=== PATIENT | female | born 1960 | race Caucasian/White ===

== ENCOUNTER 2019-10-28 12:35 | Outpatient (CLI) | payer MEDICARE, MEDICAID, SELFPAY ==
[2019-10-28 13:59] LABS: Vitamin D 25 Hydroxy 30.8 ng/mL
== END 2019-10-28 12:36 | disposition home or self-care (01) ==
LOC: ANHLAB 12:40
PROVIDERS: Visit Provider Nurse Practitioner Family
DX: E55.9 Vitamin D deficiency, unspecified (principal)
CPT/HCPCS: 36415; 82306

== ENCOUNTER 2019-10-31 09:10 | Outpatient (CLI) | payer MEDICARE, MEDICAID, SELFPAY ==
--- NOTE | 2019-11-07 02:25 | SLEEP_ITS ---
Split-Night Study. DATE OF STUDY: 10/31/2019 ORDERING PHYSICIAN: Keagan Richards M.D. REASON FOR THE STUDY: Sleep apnea, unspecified. HISTORY: The patient is a 59-year-old female, 64 inches tall, weighing 230 pounds with a body mass index of 39.5. There is a history of obstructive sleep apnea syndrome on CPAP in 2017. Currently, the patient has constant snoring that is loud enough that others complain about it. She frequently has trouble sleeping with a cold. She does not gasp for breath at night. She occasionally has problems breathing at night, witnessed by others. She occasionally sweats excessively at night, rarely notices her heart pounding or beating irregularly at night. She constantly falls asleep during the day, rarely involuntarily, rarely while driving. She does not have loss of muscle tone with strong emotion. She denies daytime difficulties at work due to sleepiness. She does not feel paralyzed on waking or falling asleep and does not have vivid dreamlike scenes upon awakening or falling asleep. She is never afraid to go to sleep. She constantly has nightmares. She occasionally remembers her dreams, occasionally has racing thoughts, occasionally feels sad, depressed, and anxious. She does not have muscular tension. She frequently notices parts of her body jerking and she frequently kicks at night. She rarely has crawly achy feelings in her legs. She denies leg pain at night. There is no morning jaw pain and she does not grind her teeth at night. She occasionally is bothered by pain during the day and occasionally has awakened with pain at night. She frequently wakes up feeling stiff in the morning. She does not have sore or achy muscles and does not wake with neck or spine pain. She has fatigue, nightmares, and headaches. Bedtime is between 10 and 11 p.m., falling asleep quickly, waking a few times at night. On some of these occasions, she will immediately fall asleep again and at other times she will stay awake for a few hours. She estimates about 5 hours of sleep nightly. The schedule was the same on the weekends. She does not indicate what time she awakens for the day. She does take naps. A short nap is not refreshing. She is usually drowsy in the morning for 2 hours or longer. MEDICAL COMORBIDITIES: Diabetes mellitus type 2, major depression, obstructive sleep apnea syndrome, polyarthritis. MEDICATIONS: 1. Atorvastatin 20 mg a day. 2. Effexor XR 150 mg daily. 3. NovoLog FlexPen sliding scale 3 times a day per protocol. 4. Jardiance 25 mg daily. 5. Vitamin D2 50,000 units weekly. 6. Basaglar 30 units subcutaneously in the morning, 55 units in the evening. 7. Metformin 1000 mg twice a day with meals. 8. Hydrochlorothiazide 25 mg a day. HABITS: The patient uses e-cigarettes. Caffeine is used. There is no alcohol. No recreational drugs. DESCRIPTION OF THE STUDY: On the [employer] [place] Sleepiness Scale, the score is 4. This was conducted as a split-night nocturnal polysomnogram using the MyMosa multiple channel system including EOG, EEG, submental EMG, EKG, nasal and oral airflow using thermistors, nasal pressure sensors, chest and abdominal belts, body position data and pulse oximetry. The study was scored using CMS guidelines. During the baseline portion 222.7 minutes of recording time occurred. 124.7 minutes of sleep occurred. Sleep efficiency was 55.9%. Sleep latency was 10 minutes. There was no REM. The patient had 46 awakenings and spent 88.2% of this portion awake after sleep onset. The patient's sleep architecture showed 43.8% stage I sleep, 56.2% stage II sleep. No stage III and no stage REM. The patient spent 2.4% of this portion supine. The sleep was extremely fragmented with constant shifts between wake stage I
== END 2019-10-31 09:11 | disposition home or self-care (01) ==
LOC: ANHCSM 09:10
PROVIDERS: Visit Provider Family Medicine
DX: G47.30 Sleep apnea, unspecified (principal)
CPT/HCPCS: 95811

== ENCOUNTER 2020-03-19 10:01 | Outpatient (CLI) | payer MEDICARE, MEDICAID, SELFPAY ==
[2020-03-19 11:19] LABS: Vitamin D 25 Hydroxy 37.9 ng/mL
== END 2020-03-19 10:02 | disposition home or self-care (01) ==
PROVIDERS: PCP Family Medicine; Visit Provider Nurse Practitioner
DX: E55.9 Vitamin D deficiency, unspecified (principal)
CPT/HCPCS: 36415; 82306

== ENCOUNTER 2020-05-12 08:51 | Outpatient (CLI) | payer MEDICARE, MEDICAID, SELFPAY ==
[2020-05-12 10:18] LABS: Alanine Aminotransferase 36 U/L (4-35); Albumin Level 4.3 g/dL (3.5-5.1); Alkaline Phosphatase 70 U/L (38-126); Anion Gap 9 mmol/L (8-16); Aspartate Amino Transferase 25 U/L (14-36); Bilirubin,Total 0.3 mg/dL (0.2-1.3); Blood Urea Nitrogen 14 mg/dL (7-17); Calcium 8.9 mg/dL (8.4-10.2); Carbon Dioxide 27 mmol/L (22-30); Chloride 101 mmol/L (98-107); Cholesterol 129 mg/dL (0-200); Estimated Glomerular Filt Rate > 60; Glucose 138 mg/dL (65-105); HDL Direct 37 mg/dL; Potassium 3.7 mmol/L (3.4-5.0); Sodium 137 mmol/L (137-145); Triglycerides 174 mg/dL (<150)
[2020-05-12 10:22] LABS: Hemoglobin A1C 7.3 % (<5.7)
[2020-05-12 10:30] LABS: LDL Cholesterol Direct 68 mg/dL
[2020-05-12 10:49] LABS: Thyroid Stimulating Hormone 0.543 uIU/mL (0.465-4.680)
[2020-05-12 11:20] LABS: Free T4 Free Thyroxine 0.87 ng/mL (0.78-2.19)
[2020-05-12 11:22] LABS: Creatinine Urine 105.7 mg/dL
[2020-05-12 11:24] LABS: Folic Acid 8.4 ng/mL (2.76->20)
[2020-05-12 12:19] LABS: MALB Creatinine Ratio 12.6 mg/g (0-30); Microalbumin Urine Random 13.3 mg/L (0-16.7)
[2020-05-15 12:17] LABS: Triiodothyronine T3 Free 3.1 pg/mL (2.3-4.2)
[2020-05-17 07:01] LABS: Thyroid Peroxidase Antibodies <1 IU/mL (<9)
== END 2020-05-12 08:52 | disposition home or self-care (01) ==
PROVIDERS: PCP Family Medicine; Visit Provider Internal Medicine Endocrinology, Diabetes & Metabolism
DX: E11.65 Type 2 diabetes mellitus with hyperglycemia (principal); R53.83 Other fatigue; E78.5 Hyperlipidemia, unspecified
CPT/HCPCS: 36415; 80053; 80061; 82043; 82607; 82746; 83036; 84439; 84443; 84481; 86376

== ENCOUNTER 2020-07-20 07:38 | Outpatient (CLI) | payer MEDICARE, MEDICAID, SELFPAY ==
--- NOTE | ~2020-07-20 | XR_ITS ---
EXAMINATION: XR shoulder LT min 2V DATE: 07/20/2020 08:22 INDICATION: Left shoulder pain TECHNIQUE: AP internally and externally rotated, AP oblique externally rotated and axillary views of the left shoulder were obtained. COMPARISON: None FINDINGS: Normal alignment. No fracture.Mild glenohumeral and moderate acromioclavicular osteoarthritis. Soft tissues are unremarkable. Visualized portions of the left lung are clear. IMPRESSION: Mild left glenohumeral and moderate acromioclavicular osteoarthritis. Reviewed, dictated and finalized at location A.
[2020-07-20 08:44] LABS: Alanine Aminotransferase 41 U/L (4-35); Albumin Level 4.5 g/dL (3.5-5.1); Alkaline Phosphatase 69 U/L (38-126); Anion Gap 9 mmol/L (8-16); Aspartate Amino Transferase 26 U/L (14-36); Bilirubin,Total 0.4 mg/dL (0.2-1.3); Blood Urea Nitrogen 14 mg/dL (7-17); Calcium 9.6 mg/dL (8.4-10.2); Carbon Dioxide 27 mmol/L (22-30); Chloride 103 mmol/L (98-107); Cholesterol 141 mg/dL (0-200); Estimated Glomerular Filt Rate > 60; Glucose 117 mg/dL (65-105); HDL Direct 45 mg/dL; Potassium 4.3 mmol/L (3.4-5.0); Sodium 139 mmol/L (137-145); Triglycerides 104 mg/dL (<150)
[2020-07-20 08:55] LABS: LDL Cholesterol Direct 80 mg/dL
[2020-07-20 08:57] LABS: Hemoglobin A1C 7.4 % (<5.7)
[2020-07-20 09:02] LABS: Creatinine Urine 96.9 mg/dL
[2020-07-20 09:09] LABS: MALB Creatinine Ratio 14.9 mg/g (0-30); Microalbumin Urine Random 14.4 mg/L (0-16.7)
[2020-07-20 09:15] LABS: Cortisol Random 1.14 ug/dL
[2020-07-20 09:20] LABS: Free T4 Free Thyroxine 0.83 ng/mL (0.78-2.19)
[2020-07-23 04:49] LABS: Thyroid Peroxidase Antibodies <1 IU/mL (<9)
== END 2020-07-20 07:39 | disposition home or self-care (01) ==
PROVIDERS: PCP Family Medicine; Referring Provider Nurse Practitioner; Visit Provider Internal Medicine Endocrinology, Diabetes & Metabolism
DX: E11.9 Type 2 diabetes mellitus without complications (principal); E78.5 Hyperlipidemia, unspecified; R63.5 Abnormal weight gain; M25.512 Pain in left shoulder
CPT/HCPCS: 36415; 73030; 80053; 80061; 82043; 82533; 83036; 84439; 84443; 84481; 86376

== ENCOUNTER 2020-09-10 09:00 | Outpatient (RCR) | payer MEDICARE, MEDICAID, SELFPAY ==
[2020-06-19 10:57] VITALS: BMI 40.7
== END 2020-09-10 13:53 | disposition home or self-care (01) ==
LOC: ANHDMC 09:00
PROVIDERS: PCP Family Medicine; Visit Provider Family Medicine
DX: E11.65 Type 2 diabetes mellitus with hyperglycemia (principal); Z71.3 Dietary counseling and surveillance; Z71.89 Other specified counseling
CPT/HCPCS: 97802; G0108

== ENCOUNTER 2020-10-22 08:27 | Outpatient (CLI) | payer MEDICARE, MEDICAID, SELFPAY ==
[2020-10-22 09:18] LABS: Alanine Aminotransferase 26 U/L (4-35); Albumin Level 4.3 g/dL (3.5-5.1); Alkaline Phosphatase 68 U/L (38-126); Anion Gap 5 mmol/L (8-16); Aspartate Amino Transferase 23 U/L (14-36); Bilirubin,Total 0.4 mg/dL (0.2-1.3); Blood Urea Nitrogen 19 mg/dL (7-17); Calcium 9.3 mg/dL (8.4-10.2); Carbon Dioxide 30 mmol/L (22-30); Chloride 101 mmol/L (98-107); Estimated Glomerular Filt Rate > 60; Glucose 113 mg/dL (65-105); Potassium 3.8 mmol/L (3.4-5.0); Sodium 136 mmol/L (137-145)
[2020-10-22 09:31] LABS: Creatinine Urine 117.7 mg/dL
[2020-10-22 09:35] LABS: MALB Creatinine Ratio 8.2 mg/g (0-30); Microalbumin Urine Random 9.6 mg/L (0-16.7)
[2020-10-22 09:46] LABS: Free T4 Free Thyroxine 0.84 ng/mL (0.78-2.19)
[2020-10-22 10:25] LABS: Folic Acid 8.2 ng/mL (2.76->20)
[2020-10-24 10:48] LABS: Triiodothyronine T3 Free 2.9 pg/mL (2.3-4.2)
[2020-10-25 05:56] LABS: Thyroid Peroxidase Antibodies <1 IU/mL (<9)
== END 2020-10-22 08:28 | disposition home or self-care (01) ==
PROVIDERS: PCP Family Medicine; Visit Provider Internal Medicine Endocrinology, Diabetes & Metabolism
DX: E11.9 Type 2 diabetes mellitus without complications (principal)
CPT/HCPCS: 36415; 80053; 82043; 82607; 82746; 83036; 84439; 84443; 84481; 86376

== ENCOUNTER 2020-10-23 08:10 | Outpatient (RCR) | payer MEDICAID, SELFPAY | END 2020-10-23 23:59 | disposition home or self-care (01) | LOC: ANHAUDIO 08:10 | PROVIDERS: PCP Family Medicine; Visit Provider Family Medicine | DX: Z46.1 Encounter for fitting and adjustment of hearing aid (principal) | CPT/HCPCS: 99199 ==

== ENCOUNTER 2020-10-23 13:00 | Outpatient (RCR) | payer MEDICARE, MEDICAID, SELFPAY | END 2020-10-23 14:29 | disposition home or self-care (01) | LOC: ANHDMC 13:00 | PROVIDERS: PCP Family Medicine; Visit Provider Family Medicine | DX: E11.65 Type 2 diabetes mellitus with hyperglycemia (principal); Z71.89 Other specified counseling | CPT/HCPCS: G0108 ==

== ENCOUNTER 2021-01-17 11:15 | Outpatient (RCR) | payer MEDICARE, SELFPAY ==
[2020-11-27 12:38] VITALS: BMI 40.6
== END 2021-01-17 12:44 | disposition home or self-care (01) ==
LOC: ANHDMC 11:15
PROVIDERS: PCP Family Medicine; Visit Provider Family Medicine
DX: E11.65 Type 2 diabetes mellitus with hyperglycemia (principal); Z71.3 Dietary counseling and surveillance; Z71.89 Other specified counseling
CPT/HCPCS: 97803; G0108

== ENCOUNTER 2021-02-26 08:32 | Outpatient (CLI) | payer MEDICARE, SELFPAY ==
[2021-02-26 09:11] LABS: Basophils Percent Auto 0.3 % (0.2-1.2); Eosinophils Percent Auto 0.5 % (0-4.4); Hematocrit 44.5 % (37.0-47.0); Hemoglobin 14.7 g/dL (12.0-15.0); Immature Granulocyte Absolute 0.01 K/mm3 (0.00-0.031); Immature Granulocyte Percent A 0.2 % (0-0.5); Lymphocytes Absolute Auto 1.41 K/mm3 (0.9-3.2); Mean Corpuscular Hemoglobin 31.7 pg (26-34); Mean Corpuscular Volume 95.9 fl (80-100); Mean Platelet Volume 9.7 fl (7.4-10.4); Monocytes Absolute Auto 0.7 K/mm3 (0.1-0.6); Monocytes Percent Auto 10.7 % (2.6-8.5); Neutrophils Absolute Auto 4.3 K/mm3 (1.3-6.7); Neutrophils Percent Auto 66.3 % (45.5-73.1); Platelet Count Result 246 k/mm3 (150-375); Red Blood Count 4.64 M/mm3 (4.2-5.4); Red Cell Distribution Width 14.6 % (11.5-14.5); White Blood Count 6.4 K/mm3 (4.5-10.0)
[2021-02-26 09:25] LABS: Alanine Aminotransferase 23 U/L (4-35); Albumin Level 4.6 g/dL (3.5-5.1); Alkaline Phosphatase 72 U/L (38-126); Anion Gap 11 mmol/L (8-16); Aspartate Amino Transferase 29 U/L (14-36); Bilirubin,Total 0.4 mg/dL (0.2-1.3); Blood Urea Nitrogen 17 mg/dL (7-17); Calcium 9.7 mg/dL (8.4-10.2); Carbon Dioxide 29 mmol/L (22-30); Chloride 101 mmol/L (98-107); Cholesterol 161 mg/dL (0-200); Estimated Glomerular Filt Rate > 60; Glucose 100 mg/dL (65-105); HDL Direct 48 mg/dL; Potassium 3.9 mmol/L (3.4-5.0); Sodium 141 mmol/L (137-145); Triglycerides 155 mg/dL (<150)
[2021-02-26 09:27] LABS: Hemoglobin A1C 7.2 % (<5.7)
[2021-02-26 09:37] LABS: LDL Cholesterol Direct 70 mg/dL
[2021-02-26 09:51] LABS: Creatinine Urine 144.6 mg/dL
[2021-02-26 09:55] LABS: Microalbumin Urine Random 11.5 mg/L (0-16.7)
[2021-02-26 09:57] LABS: Total Triiodothyronine (T3) 1.23 NG/ML (0.97-1.69)
[2021-02-26 10:07] LABS: Free T4 Free Thyroxine 0.89 ng/mL (0.78-2.19)
== END 2021-02-26 08:33 | disposition home or self-care (01) ==
PROVIDERS: PCP Family Medicine; Referring Provider Internal Medicine Endocrinology, Diabetes & Metabolism; Visit Provider Nurse Practitioner
DX: E11.9 Type 2 diabetes mellitus without complications (principal); E78.5 Hyperlipidemia, unspecified; Z00.00 Encounter for general adult medical examination without abnormal findings; R60.9 Edema, unspecified; F33.1 Major depressive disorder, recurrent, moderate; G47.00 Insomnia, unspecified; E55.9 Vitamin D deficiency, unspecified
CPT/HCPCS: 36415; 80053; 80061; 82043; 82306; 83036; 84439; 84443; 84480; 85025

== ENCOUNTER 2021-03-27 08:30 | Outpatient (RCR) | payer MEDICARE, MEDICAID, SELFPAY ==
--- NOTE | 2021-02-22 13:34 | PTOPEVAL ---
PHYSICAL THERAPY EVALUATION Thank you for referring Ten Preciado to [facility].? Ten was evaluated for the dx of left shoulder pain/OA. The patient is scheduled to be seen for therapy? 2 x/week for 4 weeks. Please review, sign, date and return this plan of care BLUE. I agree with and certify that the following plan of care is medically necessary. Referring Physician Date Attending Provider: Keagan Richards MD *PT Outpatient Evaluation Start: 02/22/21 12:31 Freq: Status: Active Protocol: Document 02/22/21 12:31 MLV (Rec: 02/22/21 13:21 [facility] [id number]) Therapy Assessment Status Assessment Status Evaluation Evaluation Information Problem Diagnosis right shoulder pain/OA Onset 2 months ago. Cause none Additional Evaluation Detail Patient reports having shoulder pain about 2 months ago, especially with reaching. The pt denies injury and no prior issues with her shoulder. The patient has no issues with the other shoulder or her neck. The patient modifies use of left arm to complete ADL's, housework. The patient goes to the gym regularly, using weights and has had to stop certain exercises due to shoulder pain. The patient also is having trouble sleeping due to shoulder pain. The patient does not work outside of her home. Diagnostic Tests X-Rays For This Problem Yes: right shoulder OA Pain Assessment Timing of Pain Assessment Timing of Pain Assessment Assessment Pain Scale Pain Scale Used Numeric (1 - 10) Self Report Pain Assessment Left Shoulder(s) Reported Pain Level 7 Pain Description Aching,Burning Radicular Pain Location down to hand Pain Frequency Acute Greatest Pain Intensity 10 Pain Aggravating Factors Exercise/Activity,Lifting, Prolonged Position Pain Score Pain Score 7: Self Report Interventions Used Interventions Used By Clinicians Education,Electrical Stimulation,Heat Pain Relief Interventions Used By Inactivity/Rest,Position Patient Change Upper Extremity Range of Motion General Upper Extremity Range of Motion Gross Upper Extremity Range of Motion shoulder active motion: right Comments
--- NOTE | 2021-03-11 08:12 | PCPTNOTE ---
Patient called & cancelled scheduled appointment this date due to illness.
--- NOTE | 2021-03-20 13:18 | PCPTNOTE ---
Patient cancelled scheduled appointment this date due to having the wrong appt time-showed 3 hours early and cannot readjust her transportation to return at correct time. No other appts available at time pt was present.
--- NOTE | 2021-03-27 09:14 | PTOPEVAL ---
PHYSICAL THERAPY DISCHARGE Thank you for referring Ten Preciado to [facility].? Ten has completed 4 visits for the dx of left shoulder impingement/pain. Goals have not been met-skilled PT peaked due to limited compliance. DC PT. Please review, sign, date and return this plan of care BLUE. I agree with and certify that the following plan of care is medically necessary. Referring Physician Date Attending Provider: Keagan Richards MD *PT Outpatient Discharge Start: 02/22/21 12:31 Freq: Status: Active Protocol: Document 03/27/21 08:26 MLV (Rec: 03/27/21 09:03 MLV [id number]) Therapy Assessment Status Assessment Status Assessment Status Discharge Evaluation Information Problem Diagnosis right shoulder pain/OA Onset 2 months ago. Cause none Additional Evaluation Detail The patient reports shoulder pain being a little better. Patient can't describe how its better, just that its better. The patient denies pain or difficulty with the HEP. The patient hasn't done the cane exercises-states she didn't have a stick. Pain Assessment Timing of Pain Assessment Timing of Pain Assessment Assessment Pain Scale Pain Scale Used Numeric (1 - 10) Self Report Pain Assessment Left Shoulder(s) Reported Pain Level 5 Pain Description Aching,Burning Pain Frequency Acute Pain Aggravating Factors Exercise/Activity,Lifting, Prolonged Position Pain Score Pain Score 5: Self Report Interventions Used Interventions Used By Clinicians Electrical Stimulation, Exercise,Heat,Manual Therapy Techniques Pain Relief Interventions Used By Heat Patient Other Alleviating Interventions ibuprofen Upper Extremity Range of Motion General Upper Extremity Range of Motion Gross Upper Extremity Range of Motion shoulder active motion: Comments left shoulder flexion 115', abduction 89', extension 63', ER 43', IR 78'; abduction passive 125' with empty endfeel (stopped due to pt complaint). Upper Extremity Muscle Strength Testing General Upper Extremity Strength Gross Upper Extremity Strength Comments no change in strength Palpation Assessment Palpation Palpation 25% decrease in moderate tightness left subscapularis
== END 2021-04-12 09:17 | disposition home or self-care (01) ==
LOC: ANHPT 08:30
PROVIDERS: PCP Family Medicine; Visit Provider Family Medicine
DX: M13.812 Other specified arthritis, left shoulder (principal)
CPT/HCPCS: 97014; 97110; 97140; 97162; G0283

== ENCOUNTER 2021-07-11 08:23 | Outpatient (CLI) | payer MEDICARE, MEDICAID, SELFPAY ==
[2021-07-11 09:01] LABS: Creatinine Urine 135.24 mg/dL (40-278); Hemoglobin A1C 7.7 % (<5.7); MALB Creatinine Ratio 9.6 mg/g (0-30); Microalbumin Urine Random < 13.0 mg/L
[2021-07-11 09:29] LABS: Alanine Aminotransferase 35 U/L (14-59); Albumin Level 3.7 g/dL (3.4-5.0); Alkaline Phosphatase 79 U/L (46-116); Anion Gap 8 mmol/L (8-16); Aspartate Amino Transferase 16 U/L (15-37); Bilirubin,Total 0.4 mg/dL (0.00-1.00); Blood Urea Nitrogen 13 mg/dL (7-18); Calcium 8.9 mg/dL (8.5-10.1); Carbon Dioxide 29 mmol/L (21-32); Chloride 104 mmol/L (98-108); Cholesterol 144 mg/dL (0-200); Estimated Glomerular Filt Rate > 60; Free T4 Free Thyroxine 0.85 ng/dL (0.76-1.46); Glucose 110 mg/dL (70-99); HDL Direct 42 mg/dL (40-60); LDL Cholesterol Calculated 76 mg/dL (<130); Osmolality Calculated 293 mOsm/kg (285-295); Potassium 4.2 mmol/L (3.5-5.1); Sodium 141 mmol/L (136-145); Thyroid Stimulating Hormone 0.64 uIU/mL (0.36-3.74); Total Protein 6.6 g/dL (6.4-8.2); Triglycerides 132 mg/dL (0-150)
[2021-07-14 20:07] LABS: Vitamin D 25 Hydroxy 32 ng/mL (30-100)
== END 2021-07-11 08:24 | disposition home or self-care (01) ==
LOC: CHSLAB 08:29
PROVIDERS: PCP Family Medicine; Visit Provider Internal Medicine Endocrinology, Diabetes & Metabolism
DX: E55.9 Vitamin D deficiency, unspecified (principal); Z00.00 Encounter for general adult medical examination without abnormal findings; E11.9 Type 2 diabetes mellitus without complications; E78.5 Hyperlipidemia, unspecified
CPT/HCPCS: 36415; 80053; 80061; 82043; 82306; 83036; 84439; 84443

== ENCOUNTER 2021-10-17 08:25 | Outpatient (CLI) | payer MEDICARE, MEDICAID, SELFPAY ==
[2021-10-17 09:10] LABS: Hemoglobin A1C 8.2 % (<5.7)
[2021-10-17 09:26] LABS: Alanine Aminotransferase 32 U/L (14-59); Albumin Level 3.9 g/dL (3.4-5.0); Alkaline Phosphatase 70 U/L (46-116); Anion Gap 9 mmol/L (8-16); Aspartate Amino Transferase 12 U/L (15-37); Bilirubin,Total 0.3 mg/dL (0.00-1.00); Blood Urea Nitrogen 16 mg/dL (7-18); Calcium 9.1 mg/dL (8.5-10.1); Carbon Dioxide 28 mmol/L (21-32); Chloride 101 mmol/L (98-108); Cholesterol 160 mg/dL (0-200); Estimated Glomerular Filt Rate > 60; Free T3 2.12 pg/mL (2.18-3.98); Free T4 Free Thyroxine 0.96 ng/dL (0.76-1.46); Glucose 126 mg/dL (70-99); HDL Direct 44 mg/dL (40-60); LDL Cholesterol Calculated 88 mg/dL (<130); Osmolality Calculated 289 mOsm/kg (285-295); Potassium 4.2 mmol/L (3.5-5.1); Sodium 138 mmol/L (136-145); Total Protein 6.9 g/dL (6.4-8.2); Triglycerides 139 mg/dL (0-150)
[2021-10-20 03:05] LABS: Thyroid Peroxidase Antibodies <1 IU/mL (<9)
[2021-10-20 06:39] LABS: Vitamin D 25 Hydroxy 49 ng/mL (30-100)
== END 2021-10-17 08:26 | disposition home or self-care (01) ==
LOC: CHSLAB 08:29
PROVIDERS: PCP Nurse Practitioner Family; Visit Provider Internal Medicine Endocrinology, Diabetes & Metabolism
DX: E11.65 Type 2 diabetes mellitus with hyperglycemia (principal); R94.6 Abnormal results of thyroid function studies; E78.5 Hyperlipidemia, unspecified; E55.9 Vitamin D deficiency, unspecified
CPT/HCPCS: 36415; 80053; 80061; 82306; 83036; 84439; 84443; 84481; 86376

== ENCOUNTER 2021-12-23 08:29 | Outpatient (CLI) | payer MEDICARE, MEDICAID, SELFPAY ==
--- NOTE | ~2021-12-23 | MM_ITS ---
EXAMINATION: MM screening cameron BI w peggy HISTORY: Screening mammogram TECHNIQUE: Craniocaudal and mediolateral oblique 3-D tomosynthesis images were obtained and synthetic 2-D images were generated. CAD analysis was submitted and interpreted. COMPARISON: No prior mammogram is available for comparison at this institution. BREAST PARENCHYMAL COMPOSITION: There are scattered areas of fibroglandular density. FINDINGS: There are possible the outer breasts as well as in the middle third of the lower left breast. No susp icious calcification is identified. IMPRESSION: 1. Possible breast masses which may represent the patient's baseline however no comparison is current ly available. 2. Comparison with prior mammograms is necessary. BI-RADS Category 0: Incomplete: Needs comparison with prior mammograms. Reviewed, dictated and finalized at location A. IMPRESSION: 1. Possible breast masses which may represent the patient's baseline however no comparison is currently available. 2. Comparison with prior mammograms is necessary. BI-RADS Category 0: Incomplete: Needs comparison with prior mammograms.
== END 2021-12-23 08:30 | disposition home or self-care (01) ==
LOC: CHSIMG 08:31
PROVIDERS: PCP Nurse Practitioner Family; Visit Provider Nurse Practitioner Family
DX: Z12.31 Encounter for screening mammogram for malignant neoplasm of breast (principal)
CPT/HCPCS: 77063; 77067

== ENCOUNTER 2022-02-05 08:17 | Outpatient (CLI) | payer MEDICARE, MEDICAID, SELFPAY ==
[2022-02-05 09:07] LABS: Creatinine Urine 120.79 mg/dL (40-278); MALB Creatinine Ratio 10.7 mg/g (0-30); Microalbumin Urine Random < 13.0 mg/L
[2022-02-05 09:08] LABS: Hemoglobin A1C 7.1 % (<5.7)
[2022-02-05 09:25] LABS: Alanine Aminotransferase 31 U/L (14-59); Albumin Level 3.6 g/dL (3.4-5.0); Alkaline Phosphatase 73 U/L (46-116); Anion Gap 7 mmol/L (8-16); Aspartate Amino Transferase 13 U/L (15-37); Bilirubin,Total 0.3 mg/dL (0.00-1.00); Blood Urea Nitrogen 17 mg/dL (7-18); Calcium 8.7 mg/dL (8.5-10.1); Carbon Dioxide 28 mmol/L (21-32); Chloride 103 mmol/L (98-108); Cholesterol 126 mg/dL (0-200); Estimated Glomerular Filt Rate > 60; Free T3 2.85 pg/mL (2.18-3.98); Free T4 Free Thyroxine 0.95 ng/dL (0.76-1.46); Glucose 96 mg/dL (70-99); HDL Direct 45 mg/dL (40-60); LDL Cholesterol Calculated 59 mg/dL (<130); Osmolality Calculated 287 mOsm/kg (285-295); Potassium 3.9 mmol/L (3.5-5.1); Sodium 138 mmol/L (136-145); Thyroid Stimulating Hormone 0.35 uIU/mL (0.36-3.74); Triglycerides 108 mg/dL (0-150)
[2022-02-07 14:01] LABS: Vitamin D 25 Hydroxy 67 ng/mL (30-100)
[2022-02-12 13:55] LABS: Hepatitis C RNA, Quant PCR <15 IU/mL
== END 2022-02-05 08:18 | disposition home or self-care (01) ==
LOC: CHSLAB 08:21
PROVIDERS: PCP Nurse Practitioner Family; Visit Provider Internal Medicine Endocrinology, Diabetes & Metabolism
DX: R76.8 Other specified abnormal immunological findings in serum (principal); E55.9 Vitamin D deficiency, unspecified; E03.9 Hypothyroidism, unspecified; E11.65 Type 2 diabetes mellitus with hyperglycemia
CPT/HCPCS: 36415; 80053; 80061; 82043; 82306; 83036; 84439; 84443; 84481; 87522

== ENCOUNTER 2022-06-16 08:13 | Outpatient (CLI) | payer MEDICARE, MEDICAID, SELFPAY ==
[2022-06-16 08:45] LABS: Hemoglobin A1C 7.2 % (<5.7)
[2022-06-16 09:29] LABS: Alanine Aminotransferase 27 U/L (14-59); Alkaline Phosphatase 72 U/L (46-116); Anion Gap 7 mmol/L (8-16); Aspartate Amino Transferase 15 U/L (15-37); Bilirubin,Total 0.3 mg/dL (0.00-1.00); Blood Urea Nitrogen 13 mg/dL (7-18); Carbon Dioxide 29 mmol/L (21-32); Chloride 102 mmol/L (98-108); Cholesterol 130 mg/dL (0-200); Estimated Glomerular Filt Rate > 60; Free T4 Free Thyroxine 0.96 ng/dL (0.76-1.46); Glucose 105 mg/dL (70-99); HDL Direct 46 mg/dL (40-60); LDL Cholesterol Calculated 61 mg/dL (<130); Osmolality Calculated 286 mOsm/kg (285-295); Potassium 3.8 mmol/L (3.5-5.1); Sodium 138 mmol/L (136-145); Total Protein 6.6 g/dL (6.4-8.2); Triglycerides 114 mg/dL (0-150)
[2022-06-16 09:55] LABS: Free T3 2.65 pg/mL (2.18-3.98)
[2022-06-18 09:05] LABS: MALB Creatinine Ratio 6.7 mg/g (0-30)
== END 2022-06-16 08:14 | disposition home or self-care (01) ==
LOC: CHSLAB 08:17
PROVIDERS: PCP Nurse Practitioner Family; Visit Provider Internal Medicine Endocrinology, Diabetes & Metabolism
DX: E03.9 Hypothyroidism, unspecified (principal); E11.9 Type 2 diabetes mellitus without complications; E78.5 Hyperlipidemia, unspecified
CPT/HCPCS: 36415; 80053; 80061; 82043; 83036; 84439; 84443; 84481

== ENCOUNTER 2022-06-30 09:07 | Outpatient (CLI) | payer MEDICARE, MEDICAID, SELFPAY ==
--- NOTE | ~2022-06-30 | CT_ITS ---
EXAMINATION: CT lung screening DATE: 06/30/2022 09:30 INDICATION: History of tobacco dependence. History of asthma and sleep apnea. TECHNIQUE: Computed tomography (CT) of the chest was performed without intravenous contrast. The dose -length product was 283.97 mGy-cm. Automated exposure control and iterative reconstruction technique were employed. COMPARISON: None FINDINGS: There is atherosclerosis of the aorta and coronary arteries. Heart size is normal. Small hi atal hernia. There is a large hypodense mass measuring 12.8 cm in the liver, incompletely visualized. No thoracic lymphadenopathy. No significant pleural or pericardial effusion. There are calcified gra nulomas in the spleen. There is a 2.5 x 1.4 cm left adrenal nodule. Mild emphysema. There is a 3 mm s ubsolid right upper lobe nodule. There are calcified mediastinal lymph nodes, consistent with chronic granulomatous disease. There are a few scattered calcified pulmonary nodules. No endobronchial lesio ns. No pneumothorax. Moderate thoracic spondylosis with accentuated kyphosis. No acute osseous abnorm ality. IMPRESSION: 1. Lung-RADS category 2: Benign appearance or behavior. Continue annual screening with noncontrast lo w-dose chest CT in 12 months. 2: Large hypodense mass in the right hepatic lobe measuring up to 12.8 cm, incompletely visualized. C orrelation with contrast-enhanced CT or ultrasound recommended. Reviewed, dictated and finalized at location A. IMPRESSION: 1. Lung-RADS category 2: Benign appearance or behavior. Continue annual screeni ng with noncontrast low-dose chest CT in 12 months. 2: Large hypodense mass in the right hepatic lobe measuring up to 12.8 cm, inco mpletely visualized. Correlation with contrast-enhanced CT or ultrasound recomm ended.
== END 2022-06-30 09:08 | disposition home or self-care (01) ==
LOC: CHSIMG 09:10
PROVIDERS: PCP Physician Assistant; Visit Provider Physician Assistant
DX: Z12.2 Encounter for screening for malignant neoplasm of respiratory organs (principal); Z87.891 Personal history of nicotine dependence
CPT/HCPCS: 71271

== ENCOUNTER 2022-07-09 08:11 | Outpatient (CLI) | payer MEDICARE, MEDICAID, SELFPAY ==
--- NOTE | ~2022-07-09 | CT_ITS ---
EXAMINATION: CT abdomen wo/w con DATE: 07/09/2022 08:47 INDICATION: Liver mass. TECHNIQUE: Computed tomography (CT) of the abdomen was performed without and with 100 mL Omnipaque 35 0 intravenous contrast. Automated exposure control and iterative reconstruction technique were employ ed. The dose-length product was 2712.81 mGy-cm. COMPARISON: Chest CT 06/30/2022 FINDINGS: The visualized portions of the lung bases demonstrate mild atelectasis. There are subpleura l bands in the lower lobes. No pleural effusion. The heart size is normal. No pericardial effusion. T here is a 14.0 cm cyst in right hepatic lobe. There are other cysts in the liver measuring up to 11 m m. The gallbladder is normal. Calcifications in the spleen are consistent with old granulomatous dise ase. The pancreas and right adrenal gland are normal. There is a 2.3 cm mass in left adrenal gland me asuring soft tissue attenuation. There are cysts in the kidneys measuring up to 14 mm on the right. T here is mild bilateral hydronephrosis. There are no dilated loops of bowel. There are no pathological ly enlarged lymph nodes. There is no free intraperitoneal fluid. IMPRESSION: 1. Benign cysts in the liver. 2. Mild bilateral hydronephrosis. 3. 2.3 cm left adrenal mass. In the absence of known malignancy, this finding is likely an adenoma. Reviewed, dictated and finalized at location A. IMPRESSION: 1. Benign cysts in the liver. 2. Mild bilateral hydronephrosis. 3. 2.3 cm left adrenal mass. In the absence of known malignancy, this finding i s likely an adenoma.
== END 2022-07-09 08:12 | disposition home or self-care (01) ==
LOC: CHSIMG 08:14
PROVIDERS: PCP Nurse Practitioner Family; Visit Provider Nurse Practitioner Family
DX: R16.0 Hepatomegaly, not elsewhere classified (principal)
CPT/HCPCS: 74170; Q9967

== ENCOUNTER 2022-08-07 08:09 | Outpatient (CLI) | payer MEDICARE, MEDICAID, SELFPAY ==
--- NOTE | ~2022-08-07 | US_ITS ---
EXAMINATION: US retroperitoneal comp DATE: 08/07/2022 08:59 INDICATION: Bilateral hydronephrosis TECHNIQUE: Multiple grayscale and Doppler ultrasound images of the kidneys were obtained. COMPARISON: CT, 07/09/2022 FINDINGS: The right kidney measures 13.3 x 5.1 x 5.4 cm. The left kidney measures 14.7 x 5.0 x 6.5 cm . The kidneys demonstrate normal parenchymal echogenicity. There is no hydronephrosis. The bladder is normal. Prevoid volume is 659 cc and postvoid volume is 2.1 cc. There is a 13.8 x 11.8 x 11.0 cm het erogeneous mass of the liver recently evaluated by CT and demonstrated to be without internal enhance ment. Finding is most consistent with nonviable debris/tissue. IMPRESSION: 1. Normal kidneys without hydronephrosis. Reviewed, dictated and finalized at location B. ER [employer] SUPER[employer]OR
== END 2022-08-07 08:10 | disposition home or self-care (01) ==
PROVIDERS: PCP Nurse Practitioner Family; Visit Provider Nurse Practitioner Family
DX: N13.30 Unspecified hydronephrosis (principal)
CPT/HCPCS: 76770

== ENCOUNTER 2022-10-14 08:23 | Outpatient (CLI) | payer MEDICARE, MEDICAID, SELFPAY ==
[2022-10-14 08:56] LABS: Creatinine Urine 123.63 mg/dL (40-278); MALB Creatinine Ratio 11.7 mg/g (0-30); Microalbumin Urine Random 14.5 mg/L
[2022-10-14 09:26] LABS: Hemoglobin A1C 6.4 % (<5.7)
[2022-10-14 09:54] LABS: Alanine Aminotransferase 26 U/L (14-59); Albumin Level 3.9 g/dL (3.4-5.0); Alkaline Phosphatase 78 U/L (46-116); Anion Gap 7 mmol/L (8-16); Aspartate Amino Transferase 12 U/L (15-37); Bilirubin,Total 0.3 mg/dL (0.00-1.00); Blood Urea Nitrogen 15 mg/dL (7-18); Carbon Dioxide 30 mmol/L (21-32); Chloride 100 mmol/L (98-108); Cholesterol 138 mg/dL (0-200); Estimated Glomerular Filt Rate > 60; Free T3 2.71 pg/mL (2.18-3.98); Glucose 91 mg/dL (70-99); HDL Direct 46 mg/dL (40-60); LDL Cholesterol Calculated 73 mg/dL (<130); Osmolality Calculated 284 mOsm/kg (285-295); Potassium 4.7 mmol/L (3.5-5.1); Sodium 137 mmol/L (136-145); Total Protein 6.9 g/dL (6.4-8.2); Triglycerides 94 mg/dL (0-150)
[2022-10-18 14:16] LABS: Cortisol Baseline 0.9 mcg/dL (***); Cortisol Random 0.8 mcg/dL (***)
== END 2022-10-14 08:24 | disposition home or self-care (01) ==
LOC: CHSLAB 08:27
PROVIDERS: Visit Provider Nurse Practitioner
DX: E11.9 Type 2 diabetes mellitus without complications (principal); E03.9 Hypothyroidism, unspecified; E78.5 Hyperlipidemia, unspecified; R63.5 Abnormal weight gain
CPT/HCPCS: 36415; 80053; 80061; 82043; 82533; 83036; 84439; 84443; 84481

== ENCOUNTER 2022-11-13 10:50 | Outpatient (CLI) | payer MEDICARE, MEDICAID, SELFPAY ==
--- NOTE | ~2022-11-13 | DEXA_ITS ---
Bone Density Report Name: LEEANNE WORTHINGTON Age: 62 Sex: Female Ethnicity: White Date of : 1960 Indication: postmenopausal; screening for osteoporosis; height loss; prior fracture; asthma or emphysema; hysterectomy; rheumatoid arthritis; Referring Provider: SARAH RIVAS Study: Bone densitometry was performed. Exam Date: November 13, 2022 Accession number: [id number] Bone Density: Region BMD T-score Z-score Classification AP Spine(L1-L4) 0.992 -0.5 1.0 Normal Femoral Neck (Left) 0.469 -3.4 -2.1 Osteoporosis Total Hip (Left) 0.750 -1.6 -0.6 Osteopenia Femoral Neck (Right) 0.666 -1.6 -0.3 Osteopenia Total Hip (Right) 0.840 -0.8 0.2 Normal Femoral Neck Mean 0.568 -2.5 -1.2 Osteoporosis Total Hip Mean 0.795 -1.2 -0.2 Osteopenia World Health Organization criteria for BMD impression classify patients as: Normal (T-score at or above -1.0), Osteopenia (T-score between -1.0 and -2.5), or Osteoporosis (T-score at or below -2.5). 10-year Fracture Risk: FRAX not reported because: Some T-score for Spine Total or Hip Total or Femoral Neck at or below -2.5 Clinical Information Provided by Patient: Has had a low trauma fracture Has rheumatoid arthritis Has used the following medications: Vitamin D, multivit Has the following medical conditions: Asthma or Emphysema, Hysterectomy Patient maximum height was 64 Menopause Age: 25 No regular weight bearing exercise Drinks caffeinated beverages Onset of menses at age 13 Number of children 3 Impression: The patient has established osteoporosis, based on the Left Femoral Neck T-score and the existence of a prior fracture. The patient has risk factors, including: previous fracture. Discussion: HIGH RISK OF FRACTURE. BONE DENSITY IS UNDESIRABLY LOW AT ONE OR MORE SKELETAL SITES, CONSISTENT WITH POSTMENOPAUSAL OSTEOPOROSIS. This patient's lowest T-score, in a patient who has previously fractured, meets the World Health Organization's (WHO) criteria for severe osteoporosis. In untreated patients, the risk of osteoporotic fracture increases approximately two-fold for each 1.0 SD decrease in T-score. Low bone density is not the only risk factor for fracture; also consider factors such as patient's age, frailty or poor health, risk of falling, risk of injury, previous osteoporotic fracture, family history of osteoporosis, cigarette smoking, low body weight, etc. Not everyone with low bone mineral density has osteoporosis; osteomalacia and other metabolic bone disorders should also be considered. Patients who have osteoporosis should be evaluated for specific diseases and conditions (secondary causes) that may cause or contribute to bone loss. The [place] Association of Clinical Endocrinologists (AACE) and National Osteoporosis Foundation (NOF) rec
== END 2022-11-13 10:51 | disposition home or self-care (01) ==
PROVIDERS: PCP Family Medicine; Visit Provider Nurse Practitioner Family
DX: Z78.0 Asymptomatic menopausal state (principal); M85.89 Other specified disorders of bone density and structure, multiple sites; M81.0 Age-related osteoporosis without current pathological fracture
CPT/HCPCS: 77080

== ENCOUNTER 2023-05-07 09:48 | Outpatient (CLI) | payer MEDICARE, MEDICAID, SELFPAY ==
[2023-05-07 15:52] LABS: Basophils Percent Auto 0.3 % (0.2-1.2); Eosinophils Absolute Auto 0.1 K/mm3 (0-0.3); Eosinophils Percent Auto 0.8 % (0-4.4); Hematocrit 46.7 % (37.0-47.0); Hemoglobin 14.9 g/dL (12.0-15.0); Immature Granulocyte Absolute 0.03 K/mm3 (0.00-0.031); Immature Granulocyte Percent A 0.5 % (0-0.5); Lymphocytes Absolute Auto 1.22 K/mm3 (0.9-3.2); Lymphocytes Percent Auto 18.8 % (18.3-44.2); Mean Corpuscular HGB Conc 31.9 g/dl (32-36); Mean Corpuscular Hemoglobin 32.4 pg (26-34); Mean Corpuscular Volume 101.5 fl (80-100); Mean Platelet Volume 10.5 fl (7.4-10.4); Monocytes Absolute Auto 0.8 K/mm3 (0.1-0.6); Monocytes Percent Auto 12.5 % (2.6-8.5); Neutrophils Absolute Auto 4.4 K/mm3 (1.3-6.7); Neutrophils Percent Auto 67.1 % (45.5-73.1); Platelet Count Result 223 k/mm3 (150-375); Red Cell Distribution Width 15.3 % (11.5-14.5); White Blood Count 6.5 K/mm3 (4.5-10.0)
[2023-05-07 17:56] LABS: Vitamin D 25 Hydroxy 78.8 ng/mL
[2023-05-07 19:04] LABS: Alanine Aminotransferase 28 U/L (6-35); Albumin Level 4.7 g/dL (3.5-5.1); Alkaline Phosphatase 73 U/L (38-126); Anion Gap 10 mmol/L (8-16); Aspartate Amino Transferase 38 U/L (14-36); Bilirubin,Total 0.3 mg/dL (0.2-1.3); Blood Urea Nitrogen 11 mg/dL (7-17); Carbon Dioxide 26 mmol/L (22-30); Chloride 103 mmol/L (98-107); Cholesterol 141 mg/dL (0-200); Estimated Glomerular Filt Rate > 60; Glucose 171 mg/dL (65-110); HDL Direct 42 mg/dL; Potassium 4.2 mmol/L (3.4-5.0); Sodium 139 mmol/L (137-145); Triglycerides 169 mg/dL (<150)
[2023-05-07 19:16] LABS: LDL Cholesterol Direct 72 mg/dL
[2023-05-07 19:35] LABS: Thyroid Stimulating Hormone 0.073 uIU/mL (0.465-4.680)
== END 2023-05-07 09:49 | disposition home or self-care (01) ==
LOC: ANHGOSHLAB 09:51
PROVIDERS: PCP Family Medicine; Visit Provider Nurse Practitioner Family
DX: I10 Essential (primary) hypertension (principal); Z13.21 Encounter for screening for nutritional disorder; Z13.29 Encounter for screening for other suspected endocrine disorder; Z13.220 Encounter for screening for lipoid disorders
CPT/HCPCS: 36415; 80053; 80061; 82306; 84443; 85025

== ENCOUNTER 2023-05-12 08:32 | Outpatient (CLI) | payer MEDICARE, MEDICAID, SELFPAY ==
--- NOTE | ~2023-05-12 | XR_ITS ---
EXAMINATION: XR lumbar spine 2-3V DATE: 05/12/2023 09:02 INDICATION: Dorsalgia. Unspecified chronic low back pain. TECHNIQUE: 3 views of lumbar spine were obtained. COMPARISON: CT abdomen 07/09/2022 FINDINGS: There is 5 degrees dextrocurvature of thoracic lumbar spine. S1 is a transitional segment. Vertebral body heights are normal. Intervertebral disc heights are normal. There are endplate osteoph ytes at most levels. There is multilevel facet joint osteoarthritis, severe in lower lumbar spine. IMPRESSION: 1. Mild lumbar spondylosis. Reviewed, dictated and finalized at location A. IMPRESSION: 1. Mild lumbar spondylosis.
== END 2023-05-12 08:33 | disposition home or self-care (01) ==
LOC: CHSIMG 08:34
PROVIDERS: PCP Family Medicine; Visit Provider Nurse Practitioner Family
DX: M54.9 Dorsalgia, unspecified (principal); M43.06 Spondylolysis, lumbar region
CPT/HCPCS: 72100

== ENCOUNTER 2023-05-21 10:30 | Outpatient (RCR) | payer MEDICARE, OTHER, SELFPAY ==
--- NOTE | 2023-05-21 13:34 | OPREHPOC ---
Outpatient Therapy Plan of Care This is a Multidisciplinary Plan of Care that may contain components documented by all disciplines (PT, OT, and ST.) PT Problem 1 PT Problem #1 Knowledge Deficit PT Goal 1 Goal Patient to demonstrate independence with HEP Target Visit 5 PT Problem 2 PT Problem #2 Pain PT Goal 1 Goal 1. Patient to report highest pain at 2/10 2. Patient to report ability to sleep with no disturbance due to back pain Target Visit 10 PT Problem 3 PT Problem #3 Impaired Flexibility PT Goal 1 Goal Patient to demonstrate 20 deg of B HS flexibility to decrease pain with prolonged standing for house hold tasks Target Visit 10 PT Problem 4 PT Problem #4 Impaired Strength PT Goal 1 Goal Patient to demonstrate 4+/5 strength of B hip to improve lifting for house hold tasks Target Visit 10 PT Problem 5 PT Problem #5 Impaired Functional Mobil PT Goal 1 Goal 1. Patient to improve Back Index scoring by 20% 2. Patient to report ability to mop floors with no increase in back pain Target Visit 10
--- NOTE | 2023-05-21 13:35 | PTOPEVAL1 ---
Assessment and note entered by Frances Rodriguez DPT Evaluation Information Assessment Status Evaluation Diagnosis low back pain Onset 05/12/23 Subjective Information Patient reports that she has been having low back pain over the last 2 years. She reports that over the last 2 weeks pain has increased with no injury . Patient reports pain is in the low back and feels like pressures. Patient reports that standing for sweeping and mopping and lifting objects cause increase in pain. She reports she is on disability and no longer working. Reported Pain Level Pain Score 3: Self Report Assessment PT Clinical Summary Patient is a 62 year old female who presents to PT with low back pain. Patient demonstrates decreased B HS length, decreased B hip strength and decreased lumbar mobility limting her ability to ambulate prolonged distances, mop and sweep the floor and lift for house hold tasks. Patient would benefit from skilled PT to address impairments and return to PLOF. Plan of Care Interventions Electrical Stimulation,Gait Training,Hot Pack/Cold Pack,Manual Therapy,Mechanical Traction,Neuro Re- education,Patient/Caregiver Educati,Therapeutic Activities,Therapeutic Exercise PT Services Indicated Yes Treatment Frequency and 2x weekly for 10 visits Duration These treatments will address the objective and functional deficits as defined above. The patient will be advanced safely and appropriately in order for the patient to progress towards his/her prior level of function. Additional exercises will be introduced and as well as a comprehensive home exercise program upon discharge, if needed, ?to ensure carryover of functional gains achieved in the clinic. This treatment plan has been reviewed and agreement upon by the patient.
== END 2023-06-18 15:29 | disposition home or self-care (01) ==
LOC: CHSPT 10:30
PROVIDERS: Visit Provider Nurse Practitioner Family
DX: M54.9 Dorsalgia, unspecified (principal); M25.511 Pain in right shoulder
CPT/HCPCS: 97014; 97110; 97140; 97161; G0283

== ENCOUNTER 2023-08-10 10:37 | Outpatient (CLI) | payer MEDICARE, MEDICAID, SELFPAY ==
--- NOTE | ~2023-08-10 | CT_ITS ---
CT Scan of the Chest without Contrast: Clinical Indication: Lung cancer screening, personal history of nicotine dependence Technique: Contiguous sections were acquired throughout the chest without intravenous contrast. Dose reduction technique was used on this scan by utilizing automated exposure control and iterative recon struction technique. The dose-length product (DLP) was 356.16 mGy-cm. COMPARISON: 06/30/2022 Findings: There is no evidence of any significant mediastinal, hilar or axillary lymphadenopathy. The mediastin al soft tissues appear normal. There is no evidence of pleural or pericardial effusion. Calcified right lower lobe granuloma noted. Linear scarring in the bilateral upper lobes noted. Images through the upper abdomen reveal partially imaged large hepatic cyst, similar to prior exam. Impression: Lung RADS 2: Benign appearance. 12 month follow-up screening CT advised. Reviewed, dictated and finalized at [facility]. [employer] Impression: Lung RADS 2: Benign appearance. 12 month follow-up screening CT advised.
== END 2023-08-10 10:38 | disposition home or self-care (01) ==
LOC: ANHIMG 10:43
PROVIDERS: PCP Nurse Practitioner Family; Visit Provider Internal Medicine Critical Care Medicine
DX: Z12.2 Encounter for screening for malignant neoplasm of respiratory organs (principal); Z87.891 Personal history of nicotine dependence
CPT/HCPCS: 71271

== ENCOUNTER 2023-08-17 08:10 | Outpatient (CLI) | payer MEDICARE, MEDICAID, SELFPAY ==
[2023-08-17 08:51] LABS: Basophils Percent Auto 0.3 % (0.2-1.2); Eosinophils Percent Auto 0.5 % (0-4.4); Hematocrit 45.2 % (37.0-47.0); Hemoglobin 14.4 g/dL (12.0-15.0); Immature Granulocyte Absolute 0.02 K/mm3 (0.00-0.031); Immature Granulocyte Percent A 0.3 % (0-0.5); Lymphocytes Absolute Auto 1.32 K/mm3 (0.9-3.2); Lymphocytes Percent Auto 21.1 % (18.3-44.2); Mean Corpuscular HGB Conc 31.9 g/dl (32-36); Mean Corpuscular Hemoglobin 32.1 pg (26-34); Mean Corpuscular Volume 100.9 fl (80-100); Mean Platelet Volume 10.2 fl (7.4-10.4); Monocytes Absolute Auto 0.8 K/mm3 (0.1-0.6); Monocytes Percent Auto 13.1 % (2.6-8.5); Neutrophils Absolute Auto 4.1 K/mm3 (1.3-6.7); Neutrophils Percent Auto 64.7 % (45.5-73.1); Platelet Count Result 203 k/mm3 (150-375); Red Blood Count 4.48 M/mm3 (4.2-5.4); Red Cell Distribution Width 14.9 % (11.5-14.5); White Blood Count 6.3 K/mm3 (4.5-10.0)
[2023-08-17 09:02] LABS: Alanine Aminotransferase 26 U/L (6-35); Albumin Level 4.4 g/dL (3.5-5.1); Alkaline Phosphatase 59 U/L (38-126); Anion Gap 11 mmol/L (8-16); Aspartate Amino Transferase 23 U/L (14-36); Bilirubin,Total 0.4 mg/dL (0.2-1.3); Blood Urea Nitrogen 17 mg/dL (7-17); Calcium 9.2 mg/dL (8.4-10.2); Carbon Dioxide 28 mmol/L (22-30); Chloride 100 mmol/L (98-107); Cholesterol 148 mg/dL (0-200); Estimated Glomerular Filt Rate > 60; Glucose 118 mg/dL (65-110); HDL Direct 45 mg/dL; Potassium 4.5 mmol/L (3.4-5.0); Sodium 139 mmol/L (137-145); Triglycerides 118 mg/dL (<150)
[2023-08-17 09:13] LABS: LDL Cholesterol Direct 77 mg/dL
[2023-08-17 09:21] LABS: Creatinine Urine 123.8 mg/dL
[2023-08-17 09:26] LABS: MALB Creatinine Ratio 10.5 mg/g (0-30)
== END 2023-08-17 08:11 | disposition home or self-care (01) ==
PROVIDERS: PCP Nurse Practitioner Family; Referring Provider Internal Medicine Critical Care Medicine; Visit Provider Nurse Practitioner Family
DX: D64.9 Anemia, unspecified (principal); E11.40 Type 2 diabetes mellitus with diabetic neuropathy, unspecified; R91.1 Solitary pulmonary nodule; Z79.4 Long term (current) use of insulin; E78.2 Mixed hyperlipidemia; I10 Essential (primary) hypertension
CPT/HCPCS: 36415; 80053; 80061; 82043; 82728; 83036; 85025

== ENCOUNTER 2024-03-11 15:45 | Outpatient (CLI) | payer MEDICARE, MEDICAID, SELFPAY ==
[2024-03-11 19:32] LABS: Alanine Aminotransferase 26 U/L (6-35); Albumin Level 4.5 g/dL (3.5-5.1); Alkaline Phosphatase 71 U/L (38-126); Anion Gap 7 mmol/L (4-12); Aspartate Amino Transferase 38 U/L (14-36); Bilirubin,Total 0.5 mg/dL (0.2-1.3); Blood Urea Nitrogen 17 mg/dL (7-17); Calcium 9.6 mg/dL (8.4-10.2); Carbon Dioxide 28 mmol/L (22-30); Chloride 105 mmol/L (98-107); Cholesterol 163 mg/dL (0-200); Estimated Glomerular Filt Rate > 60; Glucose 141 mg/dL (65-110); HDL Direct 48 mg/dL; Potassium 4.2 mmol/L (3.4-5.0); Sodium 140 mmol/L (137-145); Triglycerides 206 mg/dL (<150)
[2024-03-11 19:38] LABS: Hemoglobin A1C 6.9 % (<5.7)
[2024-03-11 19:43] LABS: LDL Cholesterol Direct 90 mg/dL
[2024-03-11 19:50] LABS: Free T4 Free Thyroxine 1.05 ng/mL (0.78-2.19)
[2024-03-11 19:53] LABS: Creatinine Urine 62.2 mg/dL
[2024-03-11 20:02] LABS: Thyroid Stimulating Hormone 0.393 uIU/mL (0.465-4.680)
[2024-03-11 20:37] LABS: MALB Creatinine Ratio < 9.6 mg/g (0-30); Microalbumin Urine Random < 6.0 mg/L (0-16.7)
== END 2024-03-11 15:46 | disposition home or self-care (01) ==
LOC: ANHGOSHLAB 15:48
PROVIDERS: Internal Medicine Critical Care Medicine; PCP Nurse Practitioner Family; Visit Provider Internal Medicine
DX: E11.40 Type 2 diabetes mellitus with diabetic neuropathy, unspecified (principal); F32.A Depression, unspecified; M81.0 Age-related osteoporosis without current pathological fracture; E78.2 Mixed hyperlipidemia; Z79.4 Long term (current) use of insulin
CPT/HCPCS: 36415; 80053; 80061; 82043; 82728; 83036; 84439; 84443

== ENCOUNTER 2024-05-12 13:00 | Outpatient (CLI) | payer MEDICARE, MEDICAID, SELFPAY ==
--- NOTE | ~2024-05-12 | MM_ITS ---
EXAMINATION: MM screening cameron BI w peggy HISTORY: Screening TECHNIQUE: Craniocaudal and mediolateral oblique 3-D tomosynthesis images were obtained and synthetic 2-D images were generated. CAD analysis was submitted and interpreted. COMPARISON: 12/23/2021 BREAST PARENCHYMAL COMPOSITION: Not dense: There are scattered areas of fibroglandular density. FINDINGS: There is no evidence of suspicious mass, calcification, or architectural distortion to sugg est malignancy in either breast. There has been no suspicious interval change. IMPRESSION: 1. No mammographic evidence of malignancy. 2. Recommend routine screening mammography in one year. BI-RADS Category 1: Negative Reviewed, dictated and finalized at location B.
== END 2024-05-12 13:01 | disposition home or self-care (01) ==
PROVIDERS: PCP Nurse Practitioner Family; Visit Provider Nurse Practitioner Family
DX: Z12.31 Encounter for screening mammogram for malignant neoplasm of breast (principal)
CPT/HCPCS: 77063; 77067

== ENCOUNTER 2024-09-06 08:49 | Outpatient (CLI) | payer MEDICARE, MEDICAID, SELFPAY ==
--- NOTE | ~2024-09-06 | CT_ITS ---
CT Scan of the Chest without Contrast: Clinical Indication: Lung cancer screening, nicotine dependence Technique: Contiguous sections were acquired throughout the chest without intravenous contrast. Dose reduction technique was used on this scan by utilizing automated exposure control and iterative recon struction technique. The dose-length product (DLP) was 247.01 mGy-cm. COMPARISON: 08/10/2023 Findings: There is no evidence of any significant mediastinal, hilar or axillary lymphadenopathy. The mediastin al soft tissues appear normal. There is no evidence of pleural or pericardial effusion. Calcified right lower lobe granuloma present. There is discoid atelectasis or scarring at the left up per lobe/lingula. Images through the upper abdomen reveal large partially imaged hepatic cyst, similar to prior exam. Impression: Lung RADS 2: Benign appearance. 12 month follow-up screening CT advised. Reviewed, dictated and finalized at [facility]. PREVENTION LEADER Impression: Lung RADS 2: Benign appearance. 12 month follow-up screening CT advised.
== END 2024-09-06 08:50 | disposition home or self-care (01) ==
PROVIDERS: PCP Nurse Practitioner Family; Visit Provider Internal Medicine Critical Care Medicine
DX: Z12.2 Encounter for screening for malignant neoplasm of respiratory organs (principal); Z87.891 Personal history of nicotine dependence
CPT/HCPCS: 71271

== ENCOUNTER 2024-11-16 15:42 | Outpatient (CLI) | payer MEDICARE, MEDICAID, SELFPAY ==
--- OUTSIDE RECORDS SUMMARY | 2024-11-16 15:47 | XMS_ITS | Clinical Summary ---
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 Gender Identity Not on file Sexual Orientation Not on file Plan of Treatment Health Maintenance Due Date Last Done Comments Cervical Cancer Screening Pa p Smear (Age 30 to 64) Every 3 Years 1961 Colorectal Cancer Screening Colonoscopy (10 Years) 1961 Annual Physical 1964 Hepatitis C 1979 DTaP, Tdap and Td Vaccines ( 1 - Tdap) 1980 Cervical Cancer Screening Pa p with HPV Testing (Age 30 to 64) Every 5 Years 1991 Cervical Cancer Screening with HPV 1991 Mammogram Screening 2001 Zoster Vaccines (1 of 2) 2011 COVID-19 Vaccine (2023-2 5 season) 2024 Influenza Adult (#1) 2024 RSV Immunization or 60+ Years (1 - 1-dose 75+ series) 2036 Meningococcal B Vaccine Aged Out No l onger eligible based on patient's age to complete this topic Meningococcal Vaccine Aged Out No rani fernanda eligible based on patient's age to complete this topic Pneumococcal Vaccine: Pediat rics (0 to 5 Years) and At-Risk Patients (6 to 64 Years) Aged Out No longer eligible b ased on patient's age to complete this topic RSV Immunizations Under 20 Months Aged Out No longer eligible based on patient's age to complete this topic Insurance MEDICARE MEDICAID Advance Directives Documents on File Type Date Recorded Patient Emergency Room Rn Expl anation Legal Documents 07/27/2012 12:00 AM RETIR EMENT OF RECORD Legal Documents 07/27/2012 12:00 AM RETIR EMENT OF RECORD Care Teams Weed Cooking Operator Relationship Specialty Start Date End Date Keagan Richards MD [address] [place] [address] PCP - General FAMILY PRACTICE 06/14/19
--- OUTSIDE RECORDS SUMMARY | 2024-11-16 15:47 | XMS_ITS | Encounter Summary ---
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
[2024-11-16 20:12] LABS: Basophils Percent Auto 0.5 % (0.2-1.2); Eosinophils Absolute Auto 0.1 K/mm3 (0-0.3); Eosinophils Percent Auto 0.9 % (0-4.4); Hematocrit 46.4 % (37.0-47.0); Hemoglobin 15.1 g/dL (12.0-15.0); Immature Granulocyte Absolute 0.03 K/mm3 (0.00-0.031); Immature Granulocyte Percent A 0.4 % (0-0.5); Lymphocytes Absolute Auto 1.68 K/mm3 (0.9-3.2); Lymphocytes Percent Auto 19.7 % (18.3-44.2); Mean Corpuscular HGB Conc 32.5 g/dl (32-36); Mean Corpuscular Hemoglobin 32.7 pg (26-34); Mean Corpuscular Volume 100.4 fl (80-100); Mean Platelet Volume 11.2 fl (7.4-10.4); Monocytes Absolute Auto 0.9 K/mm3 (0.1-0.6); Monocytes Percent Auto 10.6 % (2.6-8.5); Neutrophils Absolute Auto 5.8 K/mm3 (1.3-6.7); Neutrophils Percent Auto 67.9 % (45.5-73.1); Platelet Count Result 183 k/mm3 (150-375); Red Blood Count 4.62 M/mm3 (4.2-5.4); Red Cell Distribution Width 15.4 % (11.5-14.5); White Blood Count 8.5 K/mm3 (4.5-10.0)
[2024-11-16 20:39] LABS: Creatinine Urine 110.8 mg/dL
[2024-11-16 20:42] LABS: Microalbumin Urine Random 17.7 mg/L (0-16.7)
[2024-11-16 21:02] LABS: Alanine Aminotransferase 24 U/L (6-35); Albumin Level 4.4 g/dL (3.5-5.1); Alkaline Phosphatase 67 U/L (38-126); Anion Gap 13 mmol/L (4-12); Aspartate Amino Transferase 26 U/L (14-36); Bilirubin,Total 0.5 mg/dL (0.2-1.3); Blood Urea Nitrogen 18 mg/dL (7-17); Calcium 9.7 mg/dL (8.4-10.2); Carbon Dioxide 24 mmol/L (22-30); Chloride 106 mmol/L (98-107); Cholesterol 186 mg/dL (0-200); Estimated Glomerular Filt Rate > 60; Glucose 81 mg/dL (65-110); HDL Direct 45 mg/dL; Potassium 4.8 mmol/L (3.4-5.0); Sodium 143 mmol/L (137-145); Triglycerides 182 mg/dL (<150)
[2024-11-16 21:07] LABS: Free T4 Free Thyroxine 1.24 ng/dL (0.78-2.19)
[2024-11-16 21:14] LABS: LDL Cholesterol Direct 102 mg/dL
[2024-11-16 21:23] LABS: Thyroid Stimulating Hormone 0.503 uIU/mL (0.465-4.680)
[2024-11-16 21:49] LABS: Vitamin D 25 Hydroxy 95.2 ng/mL
== END 2024-11-16 15:43 | disposition home or self-care (01) ==
LOC: ANHGOSHLAB 15:44
PROVIDERS: PCP Nurse Practitioner Family; Visit Provider Internal Medicine
DX: F32.A Depression, unspecified (principal); E03.9 Hypothyroidism, unspecified; E11.40 Type 2 diabetes mellitus with diabetic neuropathy, unspecified; I10 Essential (primary) hypertension; E78.5 Hyperlipidemia, unspecified; E55.9 Vitamin D deficiency, unspecified
CPT/HCPCS: 36415; 80053; 80061; 82043; 82306; 83036; 84439; 84443; 85025

== ENCOUNTER 2024-11-23 12:13 | Outpatient (CLI) | payer MEDICARE, MEDICAID, SELFPAY ==
--- NOTE | ~2024-11-23 | DEXA_ITS ---
Bone Density Report Name: LEEANNE WORTHINGTON Age: 64 Sex: Female Ethnicity: White Date of : 1960 Indication: postmenopausal; screening for osteoporosis; asthma or emphysema; hysterectomy; rheumatoid arthritis; Referring Provider: MERRILL MARTINS Study: Bone densitometry was performed. Exam Date: November 23, 2024 Accession number: [id number] Bone Density: Region BMD T-score Z-score Classification AP Spine(L1-L4) 1.094 0.4 2.1 Normal Femoral Neck (Left) 0.604 -2.2 -0.8 Osteopenia Total Hip (Left) 0.811 -1.1 0.0 Osteopenia Femoral Neck (Right) 0.670 -1.6 -0.2 Osteopenia Total Hip (Right) 0.859 -0.7 0.4 Normal Femoral Neck Mean 0.637 -1.9 -0.5 Osteopenia Total Hip Mean 0.835 -0.9 0.2 Normal World Health Organization criteria for BMD impression classify patients as: Normal (T-score at or above -1.0), Osteopenia (T-score between -1.0 and -2.5), or Osteoporosis (T-score at or below -2.5). 10-year Fracture Risk(1): Major Osteoporotic Fracture 12% Hip Fracture 1.9% Reported Risk Factors: [place] (), Neck BMD=0.604, BMI=41.6, rheumatoid arthritis (1) FRAX(R) Version 3.08. Fracture probability calculated for an untreated patient. Fracture probability may be lower if the patient has received treatment. Clinical Information Provided by Patient: Has rheumatoid arthritis Has used the following medications: Vitamin D, Calcium Has the following medical conditions: Asthma or Emphysema, Hysterectomy Patient maximum height was 64 Menopause Age: 25 No regular weight bearing exercise Drinks caffeinated beverages Onset of menses at age 13 Number of children 3 Impression: The patient has low bone mass, based on the Left Femoral Neck T-score. Discussion: BONE DENSITY IS LOW AT ONE OR MORE SKELETAL SITES. This patient's lowest T-score is low at one or more skeletal sites. It meets the World Health Organization's (WHO) criteria for ?low bone mass? (T-score between -1.0 and -2.5). The patient's 10-year risk of fracture as calculated by FRAX is less than the threshold where pharmacological therapy is recommended by the National Osteoporosis Foundation (NOF). However, all treatment decisions require clinical judgment and consideration of individual patient factors, including patient preferences, comorbidities, previous drug use, risk factors not captured in the FRAX model (e.g., frailty, falls, vitamin D deficiency, increased bone turnover, interval significant decline in bone density) and possible under or overestimation of fracture risk by FRAX. The patient should follow a healthful lifestyle (good nutrition with adequate calcium and vitamin D, and appropriate weight-bearing exercise). Follow-Up: Consider repeating this study in 2 to 3 years to reassess this patient's status, or sooner if there is some new clinical indication. Reported by: RODERICK on 11/23/2024 12:52:00 PM. Reviewed, dictated and finalized at location A.
--- NOTE | ~2024-11-23 | CT_ITS ---
EXAMINATION: CT abdomen pelvis wo con DATE: 11/23/2024 12:32 INDICATION: Hepatic and renal cysts TECHNIQUE: Computed tomography (CT) of the abdomen and pelvis was performed without intravenous contr ast. Automated exposure control and iterative reconstruction technique were employed. The dose-length product was 1559.41 mGy-cm. COMPARISON: CT dated 07/09/2022 FINDINGS: Mild discoid atelectasis at the lingula and mild dependent atelectasis in bilateral lower lobes. Calc ified right lower lobe nodule along with calcified right hilar lymph node and a few scattered hepatic and splenic calcifications consistent with old granulomatous disease. Heart size is normal. No peric ardial or pleural effusion. No significant interval change in a 14 cm cyst in the right hepatic lobe. Mild focal hepatic steatosis ligamentum teres. Gallbladder, pancreas, left kidney and right adrenal gland are normal. No significant change in size of a 2.0 cm low-attenuation left adrenal adenoma. Unc hanged 1.2 cm exophytic cyst at the upper pole of the right kidney. A few sigmoid diverticula without adjacent comparison to suggest diverticulitis. Small bowel and appendix are normal. Bladder is patricia l. The uterus is not identified and has likely been surgically resected. No free intraperitoneal gas or fluid. No pathologically enlarged abdominal or pelvic lymphadenopathy. Mild lumbar and moderate lo wer thoracic spondylosis. IMPRESSION: 1. Unchanged 14 cm cyst in the right hepatic lobe and 1.2 cm right renal cyst. 2. Unchanged low-attenuation 2 cm left adrenal adenoma. Reviewed, dictated and finalized at location B. RINARY TECHNICIAN INSTRUCTOR
--- OUTSIDE RECORDS SUMMARY | 2024-11-23 13:50 | XMS_ITS | Clinical Summary ---
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
--- OUTSIDE RECORDS SUMMARY | 2024-11-23 13:50 | XMS_ITS | Encounter Summary ---
Author Organization 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
== END 2024-11-23 12:14 | disposition home or self-care (01) ==
PROVIDERS: PCP Nurse Practitioner Family; Visit Provider Internal Medicine
DX: M81.0 Age-related osteoporosis without current pathological fracture (principal); E78.2 Mixed hyperlipidemia; E03.9 Hypothyroidism, unspecified; E11.40 Type 2 diabetes mellitus with diabetic neuropathy, unspecified; Z79.4 Long term (current) use of insulin; I10 Essential (primary) hypertension; E78.5 Hyperlipidemia, unspecified; Z71.3 Dietary counseling and surveillance; M85.89 Other specified disorders of bone density and structure, multiple sites; K76.89 Other specified diseases of liver; N28.1 Cyst of kidney, acquired; D35.02 Benign neoplasm of left adrenal gland
CPT/HCPCS: 74176; 77080

== ENCOUNTER 2024-11-30 12:45 | Outpatient (CLI) | payer MEDICARE, MEDICAID, SELFPAY ==
[2024-11-30] VITALS (10 sets, daily range): PULSE 62–95; O2SAT 93–96
--- OUTSIDE RECORDS SUMMARY | 2024-11-30 14:02 | XMS_ITS | Data Portability ---
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 [employer] Team Member variances may occur. Despite proofreading, typographical errors may occur. Occasional wrong-word or wsxub-u-ycim substitutions may have occurred due to the inherent limitations of voice recording. Read the chart carefully and recognize, using context, where substitutions have occurred. Not available 12/14/2023 17:10:53 02/08/2024 02/08/2024 This note is dictated and transcribed by [employer]. [employer] Team Member variances may occur. Despite proofreading, typographical errors may occur. Occasional wrong-word or 'plrbl-t-befw' substitutions may have occurred due to the inherent limitations of voice recording. Read the chart carefully and recognize, using context, where substitutions have occurred. Not available 02/08/2024 18:03:06 06/27/2024 06/27/2024 This note is dictated and transcribed by [employer]. [employer] Team Member variances may occur. Despite proofreading, typographical errors may occur. Occasional wrong-word or 'exfec-n-fevp' substitutions may have occurred due to the inherent limitations of voice recording. Read the chart carefully and recognize, using context, where substitutions have occurred. Not available 06/27/2024 15:41:19 Plan of Treatment Reminders Order Date Submit Date Provider Last Modified By Organization Details Last Modified Time Details Appointments None record ed. Lab None record ed. Referral None record ed. Procedures None record ed. Surgeries None record ed. Imaging XR, foot, 3 or more view 024 02/08/20 24 [email or web address] [facility] [place], [address], [place], [address], 4 18:05:11 XR, foot, 3 or more view 024 01/12/20 24 [email or web address] [facility] Joey Mclaughlin, [address], [place], [address], 4 08:53:53 Medication Orders None record ed. Patient TargetsNo targets recorded. Patient InstructionsNo instructions recorded. Reason for Referral None Reported. Results Created Date Observation Date Name Description Value Unit Range Abnormal Flag Note LastModifiedBy Organization Detail LastModifiedTime 11/27/19 24 11/27/2023 GLUCO SE (POIN T OF CARE) glucose (point of care) 114 mg/dL 74-99 high Not Available [facility] (Lab) [address] [place], [address], 11/27/2023 10:16:59 11/27/19 24 11/27/2023 XR, foot, 2 view [facility] [address] [place] [address] Patien t Name: MARYCARMEN PRECIADO Access ion #: [id number] Sex: F : 1959 0 3 Dictat ed By: Jose Lu ms Attend ing Physic armin: BO BEJARANO Orderi Physic armin: BO BEJARANO Exam Date: 2023 08:44 AM Exam Name: XR FOOT RT 2V Admitt ing Diagno sis(es ): CLINIC AL INDICA TION: post-o p TECHNI QUE: 2 radiog raphic views of the left foot were obtain ed. Compar dilcia: None FINDIN GS/ IMPRES KAMALJIT: There is no eviden ce of acute fractu re or disloc ation. Possib le postsu rgical change s involv ing the fifth PIP joint. The visual ized joint space is well mainta ined. The alignm ent is anatom ical. Soft tissue swelli ng about the latera l forefo ot. Electr onical ly Signed by: Jose Lu ms at 2023 09:37: 04 AM Page 1 [email or web address] [facility] ([facility]) [address] [place], [address], 11/27/2023 11:49:19 01/12/20 24 XR, foot, 3 or more view No observ ation record ed. [email or web address] [facility] [place] [address], [place], [address], 01/12/2024 08:53:53 02/08/20 24 XR, foot, 3 or more view No observ ation record ed. [email or web address] [facility] [place] [address], [place], [address], 02/08/2024 18:05:11 Result Notes None recorded. Problems Name Problem SNOMED Code Status Onset Date Resolution Date Notes Provider Name and Address Organization Details Recorded Time Pain of left ankle joint 2644246595389 9103 Active 2020 Not Available [facility] 3 01:10:33 Dry skin 04692475 Active 2021 Not Available [facility] 3 01:10:34 Unable to cut own toenails 855776616 Active 2022 Not Available [facility] 3 01:10:34 Dyslipidem ia 452045310 Active 2021 Not Available [facility] 3 01:10:34 Hypothyroi dism 78582060 Active 2021 Not Available [facility] 3 01:10:34 Diabetic peripheral neuropathy 150442072 Active 2022 Not Available [facility] 3 01:10:34 Uncontroll ed type 2 diabetes mellitus 885586520 Active 2021 Not Available [facility] 3 01:10:34 Well controlled type 2 diabetes mellitus 222747422 Active 2021 Not Available [facility] 3 01:10:34 Diabetes mellitus 80295611 Active 2020 Not Available [facility] 3 01:10:34 Weight gain 6120763 Active 2021 Not Available [facility] 3 01:10:34 Essential hypertensi on 63411260 Active 2022 Izzy Meza MD [address], [address], [place], [address] , [employer] [facility] [employer] 3 15:52:04 Dystrophia unguium 41218848 Active 2022 Bo Gil DPM [address], [address], [place], [address] , [employer] 3 12:32:42 Foot callus 955300476 Active 2022 Bo Gil DPM [address], [place], [address] , [employer] [facility] 3 12:32:46 Pain in right foot 1339592209592 07 Active 2022 Bo Gil DPM [address], [place], [address] , [employer] [facility] 3 11:07:38 Bone spur of right foot 2588824753960 03 Active 2022 Bo Gil DPM [address], [place], [address] , [employer] [place] [employer] [facility] [employer] 3 09:03:56 Hammer toe 245589776 Active 2023 Bo Gil DPM [address], [place], [address] , [employer] [facility] 13:21:57 Tailor's bunion of right foot 8669116440096 109 Active 2023 Bo Gil DPM [address], [place], [address] , [employer] [facility] 4 18:08:27 Postoperat todd care Active 2023 Bo Gil DPM [address], [place], [address] , [employer] 4 17:11:38 Problem Notes None recorded. Procedures Surgical History Date Name Laterality Status Provider Name and Address Organization Details Recorded Time 06/27/20 24 Nail Debridement completed Bo Gil DPM [address], [place], [address], [employer] 06/27/2024 15:40:26 09/10/20 23 Nail Debridement completed Bo Gil DPM [address], [place], [address], [employer] [facility] 09/10/2023 11:07:21 04/23/20 23 Nail Debridement completed Bo Gil DPM [address], [place], [address], [employer] [facility] 04/23/2023 12:00:12 04/23/20 23 Callus Debridement, One completed Bo Gil DPM [address], [place], [address], [employer] 04/23/2023 11:59:57 01/23/20 23 Nail Debridement completed Bo Gil DPM [address], [place], [address], [employer] [facility] 01/22/2023 12:32:18 Hysterectomy completed Not Available [facility] 11/26/2022 01:06:21 total elbow replacement completed Not Available [facility] 11/26/2022 01:06:21 Ankle Surgery completed Not Available [facility] 11/26/2022 01:06:21 Cataract Surgery completed Not Available [facility] 11/26/2022 01:06:21 Imaging Results Imaging Date Name Status [facility] Details LastModified Time 11/27/2023 XR, foot, 2 view completed [email or web address] [facility] (Imaging) [address], [place], [address], 11/27/2023 11:49:19 01/12/2024 XR, foot, 3 or more view completed [email or web address] [facility] [place] [address], [place], [address], 01/12/2024 08:53:53 02/08/2024 XR, foot, 3 or more view completed [email or web address] [facility] [place] [address], [place], [address], 02/08/2024 18:05:11 Procedure Notes None recorded. Medical Equipment None Reported. Allergies No known drug allergies Medications Name Sig Start Date Stop Date Status Note LastModified by Organization Details LastModified Time amoxicillin 500 mg capsule TAKE 1 CAPSULE BY MOUTH EVERY 12 HOURS FOR 5 DAYS 12/13 completed Not Available Not Available Not Available metformin 500 mg tablet TAKE 2 TABLETS BY MOUTH TWICE DAILY 12/13 completed Not Available Not Available Not Available venlafaxine ER 75 mg capsule,ext ended release 24 hr TAKE 1 CAPSULE BY MOUTH DAILY active Not Available Not Available No t Available atorvastati n 20 mg tablet TAKE 1 TABLET BY MOUTH DAILY active Not Available Not Available No t Available ammonium lactate 12 % lotion apply to feet daily as needed 07/21 completed Not Available Not Available Not Available trazodone 50 mg tablet TAKE 1/2 TO 1 (ONE-HALF TO ONE) TABLET BY MOUTH ONCE DAILY IN THE EVENING AT BEDTIME 12/13 completed Not Available Not Available Not Available hydrocodone 5 mg-acetamin ophen 325 mg tablet TAKE 1 TABLET BY MOUTH EVERY 6 HOURS NEEDED FOR MODERATE PAIN (4-6 ON SCALE) 05/13 /2024 completed Not Available Not Available Not Available alendronate 70 mg tablet 01/10 completed Not Available Not Available Not Available sertraline 100 mg tablet active Not Available Not Available Not Available venlafaxine ER 150 mg capsule,ext ended release 24 hr TAKE 1 CAPSULE BY MOUTH ONCE DAILY active Not Available Not Available No t Available glimepiride 2 mg tablet Take 2 tablets twice a day by oral route with meals for 30 days. 07/06 completed Not Available Not Available Not Available levothyroxi ne 25 mcg tablet TAKE 1 TABLET BY MOUTH ONCE DAILY 02/20 completed Not Available Not Available Not Available levothyroxi ne 75 mcg tablet TAKE 1 TABLET BY MOUTH DAILY active Not Available Not Available No t Available meloxicam 7.5 mg tablet Take 1 tablet every day by oral route. active Not Available Not Available No t Available calcium 600 mg (as calcium carbonate 1,500 mg) tablet Take by oral route. active Not Available Not Available No t Available trazodone 100 mg tablet 12/13 completed Not Available Not Available Not Available dexamethaso ne 1 mg tablet Take 1 tablet as needed by oral route at bedtime for 1 day. 12/13 completed Not Available Not Available Not Available dexamethaso ne 2 mg tablet 07/23 completed Not Available Not Available Not Available levothyroxi ne 50 mcg tablet Take 1 tablet every day by oral route in the morning for 90 days. 07/21 completed Not Available Not Available Not Available trazodone 150 mg tablet TAKE 1 TABLET BY MOUTH EVERY DAY AT BEDTIME active Not Available Not Available No t Available metformin 1,000 mg tablet 04/16 completed Not Available Not Available Not Available glimepiride 4 mg tablet TAKE 1 TABLET BY MOUTH TWICE A DAY WITH MEALS active Not Available Not Available No t Available glucose 4 gram chewable tablet Take by oral route. active Not Available Not Available No t Available gabapentin 300 mg capsule TAKE 1 CAPSULE BY MOUTH TWICE DAILY active Not Available Not Available No t Available hydrochloro thiazide 25 mg tablet TAKE 1 TABLET BY MOUTH DAILY active Not Available Not Available No t Available mupirocin 2 % topical ointment 07/06 completed Not Available Not Available Not Available albuterol sulfate HFA 90 mcg/actuati on aerosol inhaler 12/13 completed Not Available Not Available Not Available paroxetine 40 mg tablet 07/23 completed Not Available Not Available Not Available Vitamin D2 1,250 mcg (50,000 unit) capsule TAKE 1 CAPSULE BY MOUTH ONCE A WEEK 07/06 completed Not Available Not Available Not Available ketoconazol e 2 % topical cream 12/11 completed Not Available Not Available Not Available metformin ER 500 mg tablet,exte nded release 24 hr TAKE 2 TABLETS BY MOUTH DAILY WITH MEAL active Not Available Not Available No t Available cholecalcif sugey (vitamin D3) 125 mcg (5,000 unit) capsule Take by oral route. active Not Available Not Available No t Available amoxicillin 875 mg-potassiu m clavulanate 125 mg tablet TAKE 1 TABLET BY MOUTH TWICE DAILY 03/03 completed Not Available Not Available Not Available Novolog FlexPen U-100 Insulin aspart 100 unit/mL (3 mL) subcutaneou s INJECT UP TO 20 UNITS SQ BEFORE MEALS TID 01/10 completed Not Available Not Available Not Available metformin ER 1,000 mg tablet,exte nded release 24hr (osmotic) Take 1 tablet every day by oral route. 01/20 completed Not Available Not Available Not Available cinnamon bark 500 mg capsule Take every day by oral route. 12/13 completed Not Available Not Available Not Available levothyroxi ne 25 mcg orally daily 12/13 completed Not Available Not Available Not Available vitamin B complex 01/10 completed Not Available Not Available Not Available cholecalcif sugey (vitamin D3) 125mcg 01/10 completed Not Available Not Available Not Available glucagon active Not Available Not Avai lable Not Available BD Ultra-Fine Short Pen Needle 31 gauge x 02/10 completed Not Available Not Available Not Available metformin ER 500 mg 24 hr tablet,exte nded release (gastric retention) Take 2 tablets every day by oral route with meals for 90 days. 12/13 completed Not Available Not Available Not Available UltiCare Pen Needle 31 gauge x 10/01 USE WITH INSULIN FOUR TIMES A DAY active Not Available Not Available No t Available Januvia 100 mg tablet 04/16 completed Not Available Not Available Not Available Humalog KwikPen (U-100) Insulin 100 unit/mL subcutaneou s inject 30 units three times daily before meals 12/13 completed Not Available Not Available Not Available Besivance 0.6 % eye drops,suspe nsion 07/23 completed Not Available Not Available Not Available Unifine Pentips 31 gauge x 3/16 needle 01/10 completed Not Available Not Available Not Available Lotemax 0.5 % eye gel drops 07/23 completed Not Available Not Available Not Available Prolensa 0.07 % eye drops 07/23 completed Not Available Not Available Not Available Jardiance 25 mg tablet one tablet daily x 90 days active Not Available Not Available No t Available insulin degludec (U-100) 100 unit/mL (3 mL) subcutaneou s pen INJECT 116 UNITS SUBCUTANE OUSLY ONCE DAILY AT BEDTIME active Not Available Not Available No t Available Tresiba FlexTouch U-200 insulin 200 unit/mL (3 mL) subcutaneou s pen INJECT 116 UNITS SUBCUTANE OUSLY DAILY AT BEDTIME active Not Available Not Available No t Available Basaglar KwikPen U-100 Insulin 100 unit/mL (3 mL) subcutaneou s 04/16 completed Not Available Not Available Not Available Accu-Chek Guide test strips test sugars 4 times daily before meals and bedtime, ok to substitut e meter, strips and lancets for what insurance will cover 12/13 completed Not Available Not Available Not Available Fiasp FlexTouch U-100 Insulin 100 unit/mL (3 mL) subcutaneou s pen Inject 30 units 3 times a day by subcutane ous route before meals for 90 days. 12/13 completed Not Available Not Available Not Available Ozempic 1 mg/dose (2 mg/1.5 mL) subcutaneou s pen injector Inject 1 mg every week by subcutane ous route in the morning for 30 days. 01/10 completed Not Available Not Available Not Available Ozempic 0.25 mg or 0.5 mg (2 mg/1.5 mL) subcutaneou s pen injector Inject 0.5 mg every week by subcutane ous route in the morning for 30 days. 03/03 completed Not Available Not Available Not Available OneTouch Ultra Blue Test Strip USE TO CHECK BLOOD SUGAR THREE TIMES DAILY 01/10 completed Not Available Not Available Not Available Dexcom G6 Sensor device 12/13 completed Not Available Not Available Not Available Dexcom G6 [employer] Therapist USE DIRECTED FOR CONTINUOU S GLUCOSE MONITORIN G 12/13 completed Not Available Not Available Not Available Dexcom G6 Transmitter device USE DIRECTED FOR CONTINUOU S GLUCOSE MONITORIN G. CHANGE TRANSMITT ER EVERY 90 DAYS 12/13 completed Not Available Not Available Not Available Lotemax SM 0.38 % eye gel drops 07/23 completed Not Available Not Available Not Available Flucelvax Quad 60 mcg (15 mcg x 4)/0.5 mL intramuscul ar susp 12/13 completed Not Available Not Available Not Available Rybelsus 3 mg tablet 01/10 completed Not Available Not Available Not Available Fluzone Quad (PF) 60 mcg (15 mcg x 4)/0.5 mL IM syringe PHARMACIS T ADMINISTE RED IMMUNIZAT ION ADMINISTE RED AT TIME OF DISPENSIN G 12/13 completed Not Available Not Available Not Available Ozempic 1 mg/dose (4 mg/3 mL) subcutaneou s pen injector INJECT 1MG SUBCUTANE OUSLY EVERY WEEK IN THE MORNING 01/10 completed Not Available Not Available Not Available Ozempic 2 mg/dose (8 mg/3 mL) subcutaneou s pen injector Inject 2 mg every week by subcutane ous route for 84 days. 01/10 completed Not Available Not Available Not Available Mounjaro 7.5 mg/0.5 mL subcutaneou s pen injector active Not Available Not Available Not Available Mounjaro 5 mg/0.5 mL subcutaneou s pen injector INJECT 5MG SUBCUTANE OUSLY ONCE A WEEK active Not Available Not Available No t Available Mounjaro 2.5 mg/0.5 mL subcutaneou s pen injector 01/10 completed Not Available Not Available Not Available Hair, Skin and Nails (biotin) active Not Available Not Available Not Available Vitals Date Recorded Body height Body mass index (BMI) Body weight Heart rate Respiratory rate Oxygen saturation Oxygen saturation in Arterial blood by Pulse oximetry Systolic blood pressure Diastolic blood pressure Provider Name and Address Organization Details Last Updated DateTime 4 162.56 cm 39.5 kg/m2 280816. 25 g 85 /min 14 /min 98 % 98 % 98 mm[Hg] 71 mm[Hg] Barb Omero [facility] [employer] [facility] 4 16:20:34 Date Recorded Body height Body mass index (BMI) Body weight Heart rate Respiratory rate Oxygen saturation Oxygen saturation in Arterial blood by Pulse oximetry Systolic blood pressure Diastolic blood pressure Provider Name and Address Organization Details Last Updated DateTime 4 162.56 cm 39.5 kg/m2 159399. 25 g 83 /min 14 /min 98 % 98 % 102 mm[Hg] 72 mm[Hg] Barb Jamil [facility] [employer] [facility] 4 17:07:15 Date Recorded Body height Body mass index (BMI) Body weight Heart rate Respiratory rate Body temperature Oxygen saturation Oxygen saturation in Arterial blood by Pulse oximetry Systolic blood pressure Diastolic blood pressure Provider Name and Address Organization Details Last Updated DateTime 4 162.56 cm 39.5 kg/m2 709818. 25 g 83 /min 14 /min 98 [degF] 98 % 98 % 110 mm[Hg] 72 mm[Hg] Yana Hernandez [employer] 4 17:07:09 Date Recorded Body height Body mass index (BMI) Body weight Heart rate Respiratory rate Oxygen saturation Oxygen saturation in Arterial blood by Pulse oximetry Systolic blood pressure Diastolic blood pressure Provider Name and Address Organization Details Last Updated DateTime 4 162.56 cm 39.5 kg/m2 938037. 25 g 85 /min 14 /min 98 % 98 % 109 mm[Hg] 55 mm[Hg] Barb Jamil [facility] [employer] [facility] 4 15:10:13 Date Recorded Heart rate Respiratory rate Oxygen saturation Oxygen saturation in Arterial blood by Pulse oximetry Systolic blood pressure Diastolic blood pressure Provider Name and Address Organization Details Last Updated DateTime 5 77 /min 14 /min 99 % 99 % 120 mm[Hg] 66 mm[Hg] Barb Jamil [facility] [employer] [facility] 5 17:27:42 Social History Question Answer Notes LastModified by Organizat ion Details LastModified Time Tobacco Smoking Status Former Smoker Not Available [facility] 11/26/2022 01:02:39 What Is Your Level Of Alcohol Consumption? None [id number] Information not available 11/26/2022 What Is Your Level Of Caffeine Consumption? Heavy [id number] Information not available 11/26/2022 In The 14 Days Before Symptom Onset, Have You Had Close Contact With A Laboratory-confir med COVID-19 While That Case Was Ill? No [id number] Information not available 11/26/2022 In The 14 Days Before Symptom Onset, Have You Had Close Contact With A Person Who Is Under Investigation For COVID-19 While That Person Was Ill? No [id number] Information not available 11/26/2022 What Type Of Diet Are You Following? REGULAR [id number] Information not available 11/26/2022 Which Illicit Or Recreational Drugs Have You Used? None [id number] Information not available 11/26/2022 Do You Or Have You Ever Used E-cigarettes Or Vape? Current User Of Electronic Cigarettes Vape [id number] Information not available 11/26/2022 What Is Your Relationship Status? [id number] Information not available 11/26/2022 At What Age Did You Start Smoking Tobacco? 16 [id number] Information not available 11/26/2022 Do You Use Any Illicit Or Recreational Drugs? No [id number] Information not available 11/26/2022 Have You Recently Traveled Abroad? No [id number] Information not available 11/26/2022 Do You Have Any Dietary Restrictions? No [id number] Information not available 11/26/2022 Do You Or Have You Ever Used Any Other Forms Of Tobacco Or Nicotine? Yes [id number] Information not available 11/26/2022 Sex: Female Functional Status None recorded. Mental Status None recorded. Family History Relationship Description Onset Age of this Age Resolved Age Notes LastModified by Organization Details LastModified Time Mother Malignant tumor of lung [id number] Not available 11/26/2022 01:06:23 Father Diabetes mellitus [id number] Not available 11/26/2022 01:06:23 Father Myocardial infarction [id number] Not available 11/26/2022 01:06:23 Father Hypertensive disorder [id number] Not available 11/26/2022 01:06:23 Medical History Condition Response EYE PROBLEMS Y DIABETES, TYPE Y HEADACHES/MIGRAINES Y HIGH CHOLESTEROL / HYPERLIPIDEMIA Y ASTHMA Y Gynecological HistoryNo gynecological history recorded. Obstetrics History GPAL:G 0 P 0 0 0 0 Past Encounters Encounter ID Performer Location Encounter Start Date Encounter Closed Date Diagnosis/Indication Diagnosis SNOMED-CT Code Diagnosis ICD10 Code Diagnosis Note [id number] [facility] [place] [address] [place] [address] 12/04/2020 00:00:00 12/16/2020 19:42:25 [id number] [facility] [place] [address] [place] [address] 12/20/2020 00:00:00 12/20/2020 14:09:13 [id number] [facility] [place] [address] [place] [address] 04/04/2021 00:00:00 04/11/2021 08:42:54 [id number] [facility] [place] [address] [place] [address] 07/22/2021 00:00:00 07/22/2021 13:40:15 [id number] [facility] [place] [address] [place] [address] 07/23/2021 00:00:00 07/23/2021 10:46:33 [id number] [facility] [place] [address] [place] [address] 10/25/2021 00:00:00 10/25/2021 10:59:52 [id number] [facility] [place] [address] [place] [address] 12/26/2021 00:00:00 12/26/2021 12:58:03 [id number] [facility] [place] [address] [place] [address] 03/03/2022 00:00:00 03/03/2022 15:44:51 [id number] [facility] [place] [address] [place] [address] 03/27/2022 00:00:00 03/27/2022 11:15:10 [id number] [facility] [place] [address] [place] [address] 06/26/2022 00:00:00 06/26/2022 13:20:44 [id number] [facility] [place] [address] [place] [address] 07/21/2022 00:00:00 07/21/2022 12:46:21 [id number] [facility] [place] [address] [place] [address] 10/23/2022 00:00:00 10/23/2022 09:59:39 [id number] Izzy Meza MD [facility] [place] [address] [place] [address] 12/11/2022 11:48:12 12/11/2022 12:58:51 Well controlled type 2 diabetes mellitus [id number] E11.9 a1c 6.4% down from 7.2%- continue tresiba at 116 units once daily at bedtime and titrate by 10 units every 3 days to maintain FBG 90-130. Continue on glimepirid e 4 mg BID, jardiance 25 mg daily, and dexcom cgm. She is aware to take novolog for rescue only at correction of 2U:50>200 mg/dL to reduce hypoglycem ia risk when taken with glimepirid e. Hypothyroidism [id number] E03.9 FT4 in range- continue on unithroid 75 mcg daily. She was reminded to take her unithroid on empty stomach with glass of water and wait one hour to eat or have her coffee in morning and up to 4 hours if ever taking any heartburn or reflux medication s to help optimize absorption . Discussed paleo like diet with restrictio n of GMOs to help with energy and to optimize absorption of vitamins and minerals and reduce inflammati on. Diabetes mellitus [id number] E11.9 Please note the above- well controlled . Dyslipidemia 450307105 E 78.5 Continue statin therapy. Spent up to 25 minutes preparing to see the patient (eg, review of tests), obtaining and/or reviewing separately obtained history, performing a medically appropriat e examinatio n and evaluation , counseling and educating the patient, ordering medication s, tests, along with documentin g clinical informatio n in the electronic health record, independen tly interpreti ng results and communicat ing results to the patient. RTC in 6 months. Patient was provided a handwritte n lab order which contains our fax number. If she chooses to go outside of the [email or web address] system to obtain labwork she was advised to provide our fax number and my informatio n to the lab she will be obtaining labwork from in order to have her labs properly forwarded over for me to review so there is no loss of follow up due to use of outside network. She was also advised to contact our clinic informing us that she has completed her labwork so we are aware we will need to reach out to the appropriat e laboratory to request her results be forwarded to us so I might have the ability to review and make further medical decision making in her case. She voiced understand ing. [id number] Bo Gil DPM [facility] [place] [address] [place] [address] 01/22/2023 11:49:38 01/22/2023 12:35:25 Diabetic peripheral neuropathy [id number] E11.42 Patient educated on neuropathy , diabetes, diabetic diet, and daily foot exams. Patient is to check feet daily for new wounds, blisters, redness to prevent infection and ulceration s to the feet. Patient will return to clinic in 3 months for diabetic foot workup.Con tinue diabetic shoespatie nt shown where to obtain and diabetic inserts over-the-c ounter Dystrophia unguium 00010 009 L60.3 Nails 1 through 10 were debrided with sharp mechanical debridemen t without incident. Nails were debrided and greater than 50% length and thickness where needed. Foot callus [id number] L8 4 Sub 5th metatarsal head [facility] ed without incidentEd ucated on use of a pumice stoneFollo w-up in 3 months continue diabetic shoes and obtain diabetic insoles [id number] Bo Gil DPM [facility] [place] [address] [place] [address] 04/23/2023 11:24:24 04/23/2023 14:08:29 Dystrophia unguium [id number] L60.3 Nails 1 through 10 were debrided with sharp mechanical debridemen t without incident. Nails were debrided and greater than 50% length and thickness where needed. Diabetic p eripheral neuropathy [id number] E11.42 Patient educated on neuropathy , diabetes, diabetic diet, and daily foot exams. Patient is to check feet daily for new wounds, blisters, redness to prevent infection and ulceration s to the feet. Patient will return to clinic in 3 months for diabetic foot workup.Con tinue diabetic shoespatie nt shown where to obtain and diabetic inserts over-the-c ounter Foot callus [id number] L8 4 Sub 5th metatarsal head right footdebrid ed without incidentEd ucated on use of a pumice stoneFollo w-up in 3 months continue diabetic shoes and obtain diabetic insoles [id number] Bo Gil DPM [facility] [place] [address] [place] [address] 09/10/2023 10:50:16 09/14/2023 11:44:10 Pain in right foot [id number] 18615 M79.671 x-rays reviewed with the patient Bone spur of right foot [id number] 20325 M25.774 lateral 5th metatarsal headoption s reviewed with the patientPat ient will conservati vely offload the area and if it does not improve may require surgical excision of spurrecomm end wide shoe gear Dystrophia unguium 76803 009 L60.3 Nails 1 through 10 were debrided with sharp mechanical debridemen t without incident. Nails were debrided and greater than 50% length and thickness where needed. [id number] Bo Gil DPM [facility] [place] [address] [place] [address] 10/22/2023 12:34:57 10/28/2023 09:25:45 Bone spur of right foot [id number] 00307 M25.774 lateral 5th metatarsal headoption s reviewed with the patientObt mayte surgical clearanceo btained EKG and lab workplan partial met head excision of spur laterallya ll risks and benefits reviewed with the patient to her complete full understand ing. Patient elects to continue despite possible risks. No guarantees were given or implied. All questions were addressed to the patient's complete full understand ing.Once cleared will schedule surgeryrec ommend wide shoe gearfollow -up after surgery Pain in right foot 52473 11580 85850 M79.671 x-rays reviewed with the patient Hammer toe 771655795 M20 .41 adductovar us rotation 5th toeplan derotation al arthroplas ty right 5th toeAll risks and benefits reviewed with the patient to complete full understand ing patient elects to continue despite possible risks. No guarantees were given or implied. Diabetic p eripheral neuropathy [id number] E11.42 Patient educated on neuropathy , diabetes, diabetic diet, and daily foot exams. Patient is to check feet daily for new wounds, blisters, redness to prevent infection and ulceration s to the feet. 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 [id number] [facility] [place] [address] [place] [address] 11/30/2023 14:48:35 11/30/2023 16:05:47 Postoperative care [id number] Z48.89 Status post 3 days Doing well Dressing change Continue postop shoe Follow up in 1 week for dressing change [id number] Bo Gil DPM [facility] [place] [address] [place] [address] 12/14/2023 16:13:12 12/14/2023 17:27:14 Postoperative care [id number] Z48.89 Status post approx 2 weekssutur es removedDoi ng wellDressi ng changeCont inue postop shoeFollow up 4 week for repeat xrays [id number] Bo Gil DPM [facility] [place] [address] [place] [address] 01/11/2024 16:56:59 01/12/2024 13:20:49 Postoperative care [id number] Z48.89 X-rays reviewed with the patientmauricio hermosillo healedmay return to normal shoe gearrecomm end wide shoe gear no tight shoes as this will cause recurrence of deformityD oing well Follow up 1 month for repeat x-rays [id number] Bo Gil DPM [facility] [place] [address] [place] [address] 02/08/2024 16:35:44 02/08/2024 18:10:16 Postoperative care [id number] Z48.89 X-rays reviewed with the patientinc jaimee healedmay return to normal shoe gearrecomm end wide shoe gear no tight shoes as this will cause recurrence of deformityD oing well Follow up 1 month for repeat x-rays [id number] Bo Gil DPM [facility] [place] [address] [place] [address] 06/27/2024 14:26:25 06/30/2024 16:27:36 Diabetes mellitus 43131709 E11.9 Continue PCP recommenda tion Diabetic p eripheral neuropathy [id number] E11.42 Patient educated on neuropathy , diabetes, diabetic diet, and daily foot exams. Patient is to check feet daily for new wounds, blisters, redness to prevent infection and ulceration s to the feet. Patient will return to clinic in 3 months for diabetic foot workup.Rx diabetic shoes and insoles- recommend daily Dystrophia unguium 73648 009 L60.3 Nails 1 through 10 were debrided with sharp mechanical debridemen t without incident. Nails were debrided and greater than 50% length and thickness where needed. Health Concerns Section Related Observation LastModified by Organization Detai ls LastModified Time None Recorded Concern Status LastModified by Organization Details LastModified Time None Recorded Advance Directives Directive None Recorded Payers Encounter Date Sequence Insurance Name Policy Number Policy Elmore Covered Member ID Elmore Member ID Guarantor Name 12/14/2023 1 [facility] (MEDICARE REPLACEMENT/AD VANTAGE - PPO) [id number] [employer] Ozzy [id number] Ten Preciado 12/14/2023 2 [employer] [place] 2020 (MEDICAID REPLACEMENT - HMO) Ten Preciado [id number] Ten Preciado 01/11/2024 1 [facility] (MEDICARE REPLACEMENT/AD VANTAGE - PPO) [id number] Ten Preciado [id number] Ten Preciado 01/11/2024 2 [employer] [place] ([place]ICAID REPLAC[place] - HMO) Ten Preciado [id number] Ten Preciado 02/08/2024 1 [facility] (MEDICARE REPLACEMENT/AD VANTAGE - PPO) [id number] Ten Preciado [id number] Ten Preciado 02/08/2024 2 [employer] [place] (MEDICAID REPLAC[place] - HMO) Ten Preciado [id number] Ten Preciado 06/27/2024 1 [facility] (MEDICARE REPLACEMENT/AD VANTAGE - PPO) [id number] Ten Preciado [id number] Ten Preciado 06/27/2024 2 [employer] [place] (MEDICAID REPLACEMENT - HMO) [employer] Ozzy [id number] Ten Preciado Notes Date Note Type Note Provider Name and Address Organization Details Recorded Time 12/14/2023 text/html . Patient is a 63-year-old female who returns the office for follow-up on right 5th toe hammertoe arthroplasty and partial 5th met head resection which she is doing well the toe was in rectus position the incisions are healed. Patient denies any signs of infection or pain. Patient denies any other complaints. Bo Gil DPM [address] [address], [place], [address], [facility] Monitor My Med[facility] 12/14/2023 17:12:39 01/11/2024 text/html . Patient is a 63-year-old female who returns the office for follow-up on hammertoe correction of the 5th toe. Patient had x-rays they were reviewed with the patient. Patient has healed all incisional areas and denies any discomfort to the toe. The toe is in good stable correction. Patient denies any other complaints she does have some mild swelling of the toe but overall happy with the results. Bo Gil DPM [address], [place], [address], [facility] 01/12/2024 08:54:13 02/08/2024 text/html . Patient is a 63-year-old female who returns the office for follow-up on hammertoe correction of the right 5th toe. Patient states overall she is doing well she states that she does have some mild swelling and at times some bluish purple discoloration of the toe. Pain patient does have some venous congestion of the toe but overall has healed the wound and has a stable alignment of the toe. Patient denies any other complaints. Bo Gil DPM [address], [place], [address], [employer] 02/08/2024 18:05:37 06/27/2024 text/html . Patient is a 63-year-old female diabetic with neuropathy she returns the office for routine diabetic foot care she denies any wounds to the foot. Patient denies any recent blisters. Patient states overall she is doing well she continues have numbness and tingling she states she can not bend over to cut her toenails which are elongated. Patient denies any other complaints. Bo Gil DPM [address], [place], [address], [employer] 06/27/2024 15:41:59 OBGyn Episode No OBEpisode recorded.
--- OUTSIDE RECORDS SUMMARY | 2024-11-30 14:02 | XMS_ITS | Encounter Summary ---
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
--- OUTSIDE RECORDS SUMMARY | 2024-11-30 14:02 | XMS_ITS | Clinical Summary ---
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
--- NOTE | 2024-11-30 14:23 | SIXMINWLK ---
Six Minute Walk Test PFT: Six Minute Walk Start: 11/30/24 14:12 Freq: Status: Active Protocol: RPE Activity Type Activity Date Activity User E-sign Co-sign Detail Recorded Client Recorded Date Recorded By Document 11/30/24 13:05 RES [id number] 11/30/24 14:14 RES Document 11/30/24 13:06 RES [id number] 11/30/24 14:14 RES Document 11/30/24 13:07 RES [id number] 11/30/24 14:14 RES Document 11/30/24 13:08 RES [id number] 11/30/24 14:18 RES Document 11/30/24 13:09 RES [id number] 11/30/24 14:18 RES Document 11/30/24 13:10 RES [id number] 11/30/24 14:18 RES Document 11/30/24 13:11 RES [id number] 11/30/24 14:18 RES Document 11/30/24 13:12 RES [id number] 11/30/24 14:18 RES Document 11/30/24 13:13 RES [id number] 11/30/24 14:18 RES Document 11/30/24 13:14 RES [id number] 11/30/24 14:18 RES Document 11/30/24 14:18 RES [id number] 11/30/24 14:21 RES 11/30/24 11/30/24 11/30/24 13:05 13:06 13:07 Six Minute Walk Gender F F F Age [age] Race White White White Test Phase Resting Exercise Exercise Oxygen Delivery Room Air Room Air Room Air Fraction of Inspired Oxygen (%) 21 21 21 Pulse Oximetry (90-100 %) 95 96 95 Pulse Rate (60-100 beats/min) 62 78 84 Activity Tolerance Good Good Good Rating of Perceived Dyspnea (PD) +2 Mild, Some +2 Mild, Some +2 Mild, Some Difficulty, Difficulty, Difficulty, Noticeable to Noticeable to Noticeable to the Observer the Observer the Observer Rate of Perceived Exertion (1) Very Light (2-3) Light (4-6) Moderate Activity Activity Activity Number of Complete Laps (1 Lap = 100 Feet) Total Distance Walked (Feet) Total Distance Walked (Meters) Stopped/Paused During Testing - Enter Comment if Yes Symptoms at End of Test 11/30/24 11/30/24 11/30/24 13:08 13:09 13:10 Six Minute Walk Gender F F F Age [age] Race White White White Test Phase Exercise Exercise Exercise Oxygen Delivery Room Air Room Air Room Air Fraction of Inspired Oxygen (%) 21 21 21 Pulse Oximetry (90-100 %) 94 93 95 Pulse Rate (60-100 beats/min) 83 92 83 Activity Tolerance Good Good Good Rating of Perceived Dyspnea (PD) +2 Mild, Some +2 Mild, Some +2 Mild, Some Difficulty, Difficulty, Difficulty, Noticeable to Noticeable to Noticeable to the Observer the Observer the Observer Rate of Perceived Exertion (4-6) Moderate (4-6) Moderate (4-6) Moderate Activity Activity Activity Number of Complete Laps (1 Lap = 100 Feet) Total Distance Walked (Feet) Total Distance Walked (Meters) Stopped/Paused During Testing - Enter Comment if Yes Symptoms at End of Test 11/30/24 11/30/24 11/30/24 13:11 13:12 13:13 Six Minute Walk Gender F F F Age [age] Race White White White Test Phase Exercise Exercise Exercise Oxygen Delivery Room Air Room Air Room Air Fraction of Inspired Oxygen (%) 21 21 21 Pulse Oximetry (90-100 %) 93 93 94 Pulse Rate (60-100 beats/min) 88 93 95 Activity Tolerance Good Good Good Rating of Perceived Dyspnea (PD) +2 Mild, Some +2 Mild, Some +2 Mild, Some Difficulty, Difficulty, Difficulty, Noticeable to Noticeable to Noticeable to the Observer the Observer the Observer Rate of Perceived Exertion (4-6) Moderate (4-6) Moderate (4-6) Moderate Activity Activity Activity Number of Complete Laps (1 Lap = 100 Feet) Total Distance Walked (Feet) Total Distance Walked (Meters) Stopped/Paused During Testing - Enter Yes Comment if Yes Symptoms at End of Test Leg/Hip Pain 11/30/24 11/30/24 13:14 14:18 Six Minute Walk Gender F F Age [age] Race White White Test Phase Resting Oxygen Delivery Room Air Fraction of Inspired Oxygen (%) 21 Pulse Oximetry (90-100 %) 95 Pulse Rate (60-100 beats/min) 93 Activity Tolerance Good Rating of Perceived Dyspnea (PD) +2 Mild, Some Difficulty, Noticeable to the Observer Rate of Perceived Exertion (4-6) Moderate Activity Number of Complete Laps (1 Lap = 100 5 Feet) Total Distance Walked (Feet) 500 Total Distance Walked (Meters) 152.39 Stopped/Paused During Testing - Enter Comment if Yes Symptoms at End of Test Leg/Hip Pain
== END 2024-11-30 12:46 | disposition home or self-care (01) ==
LOC: CHSCARD 12:46
PROVIDERS: PCP Nurse Practitioner Family; Visit Provider Internal Medicine Critical Care Medicine
DX: Z87.891 Personal history of nicotine dependence (principal); R94.2 Abnormal results of pulmonary function studies
CPT/HCPCS: 94060; 94618; 94726; 94729

== ENCOUNTER 2024-12-13 08:44 | Outpatient (CLI) | payer MEDICARE, MEDICAID, SELFPAY ==
--- OUTSIDE RECORDS SUMMARY | 2024-12-13 09:03 | XMS_ITS | Data Portability ---
Author Organization [facility] [employer] [facility], Main Office Address [address] [place] [address] Care Team Providers Care Chief Medical Technologist Name Role Phone CATRACHO HARIS Primary Care Provider CATRACHO HARIS Referring Provider [phone] Assessment Encounter Date Assessment Date Assessment LastModified by Organization Details LastModified Time 12/14/2023 12/14/2023 This note is dictated and transcribed by [employer]. Stone Layout Marker variances may occur. Despite proofreading, typographical errors may occur. Occasional wrong-word or s ound-a-like substitutions may have occurred due to the inherent limitations of voice recording. Read the chart carefully and recognize, using context, where substitutions have occurred. Not available 12/14/2023 17:10:53 02/08/2024 02/08/2024 This note is dictated and transcribed by [employer]. Stone Layout Marker variances may occur. Despite proofreading, typographical errors may occur. Occasional wrong-word or 'lyiml-a-acrv' substitutions may have occurred due to the inherent limitations of voice recording. Read the chart carefully and recognize, using context, where substitutions have occurred. Not available 02/08/2024 18:03:06 06/27/2024 06/27/2024 This note is dictated and transcribed by [employer]. Stone Layout Marker variances may occur. Despite proofreading, typographical errors may occur. Occasional wrong-word or 'xvqhc-e-wkdj' substitutions may have occurred due to the inherent limitations of voice recording. Read the chart carefully and recognize, using context, where substitutions have occurred. Not available 06/27/2024 15:41:19 11/28/2024 11/28/2024 This note is dictated and transcribed by [employer]. Stone Layout Marker variances may occur. Despite proofreading, typographical errors may occur. Occasional wrong-word or 'gqtmg-q-fjmd' substitutions may have occurred due to the inherent limitations of voice recording. Read the chart carefully and recognize, using context, where substitutions have occurred. [email or web address] Not available 12/12/2024 09:32:53 Plan of Treatment Reminders Order Date Submit Date Provider Last Modified By Organization Details Last Modified Time Details Appointments None record ed. Lab None record ed. Referral None record ed. Procedures None record ed. Surgeries None record ed. Imaging XR, foot, 3 or more view 024 02/08/20 24 [email or web address] [facility] [place], [address], [place], [address], 4 18:05:11 XR, foot, 3 or more view 024 01/12/20 24 [email or web address] [facility] [place], [address], [place], [address], 4 08:53:53 Medication Orders None record ed. Patient TargetsNo targets recorded. Patient InstructionsNo instructions recorded. Reason for Referral None Reported. Results Created Date Observation Date Name Description Value Unit Range Abnormal Flag Note LastModifiedBy Organization Detail LastModifiedTime 11/27/19 24 11/27/2023 GLUCO SE (POIN T OF CARE) glucose (point of care) 114 mg/dL 74-99 high Not Available [facility] (Lab) [address] [place], [address], 11/27/2023 10:16:59 11/27/19 24 11/27/2023 XR, foot, 2 view [facility] [address] [place] [address] [phone] Patien t Name: MARYCARMEN PRECIADO Access ion #: [id number] Sex: F : 1959 0 3 Dictat ed By: Jose Lu ms Attend ing Physic armin: BO BEJARANO Orderi ng Physic armin: BO BEJARANO Exam Date: 2023 [...] 2023 09:37: 04 AM Page 1 [email or web address] [facility] ([facility]) [address] [place] [address], [address], 11/27/2023 11:49:19 01/12/20 24 XR, foot, 3 or more view No observ ation record ed. [email or web address] [facility] [place] [address], [place], [address], 01/12/2024 08:53:53 02/08/20 24 XR, foot, 3 or more view No observ ation record ed. [email or web address] [facility] [place] [address] [facility] [address], [place], [address], 02/08/2024 18:05:11 Result Notes None recorded. Problems Name Problem SNOMED Code Status Onset Date Resolution Date Notes Provider Name and Address Organization Details Recorded Time Pain of left ankle joint 4559881889624 9103 Active 2020 Not Available [employer] 3 01:10:33 Dry skin 28399458 Active 2021 Not Available [employer] 3 01:10:34 Unable to cut own toenails 688837637 Active 2022 Not Available [facility] 3 01:10:34 Dyslipidem ia 052310204 Active 2021 Not Available [facility] 3 01:10:34 Hypothyroi dism 38314748 Active 2021 Not Available [facility] 3 01:10:34 Diabetic peripheral neuropathy 310846441 Active 2022 Not Available [facility] 3 01:10:34 Uncontroll ed type 2 diabetes mellitus 654343748 Active 2021 Not Available [facility] 3 01:10:34 Well controlled type 2 diabetes mellitus 428598231 Active 2021 Not Available [facility] 3 01:10:34 Diabetes mellitus 62526857 Active 2020 Not Available [facility] 3 01:10:34 Weight gain 8517539 Active 2021 Not Available [facility] 3 01:10:34 Essential hypertensi on 79211094 Active 2022 Izzy Meza MD [address], [place], [address] , [employer] 3 15:52:04 Dystrophia unguium 56446928 Active 2022 Bo Gil DPM [address], [place], [address] , [facility] 3 12:32:42 Foot callus 920103341 Active 2022 Bo Gil DPM [address], [place], [address] , [facility] 3 12:32:46 Pain in right foot 6697087723582 07 Active 2022 Bo Gil DPM [address], [address], [place], [address] , [facility] 3 11:07:38 Bone spur of right foot 9415280051725 03 Active 2022 Bo Gil DPM [address], [place], [address] , [facility] 3 09:03:56 Hammer toe 194946367 Active 2023 Bo Gil DPM [address], [place], [address] , [facility] 4 13:21:57 Tailor's bunion of right foot 2222787516837 109 Active 2023 Bo Gil DPM [address], [place], [address] , [facility] 4 18:08:27 Postoperat todd care Active 2023 Bo Gil DPM [address], [place], [address] , [facility] 4 17:11:38 Diabetic on insulin 093157558 Active 2024 Bo Gil DPM [address], [place], [address] , [facility] 5 09:33:04 Problem Notes None recorded. Procedures Surgical History Date Name Laterality Status Provider Name and Address Organization Details Recorded Time 11/30/19 25 Nail Debridement completed Bo Gil DPM [address], [place], [address], [facility] 12/12/2024 09:31:54 06/27/20 24 Nail Debridement completed Bo Gil DPM [address], [place], [address], [facility] 06/27/2024 15:40:26 09/10/20 23 Nail Debridement completed [address], [place], [address], [facility] 09/10/2023 11:07:21 04/23/20 23 Nail Debridement completed Bo Gil DPM [address], [place], [address], [facility] [employer] [facility] [employer] [facility] 04/23/2023 12:00:12 04/23/20 23 Callus Debridement, One completed Bo Gil DPM [address], [place], [address], [facility] [employer] [facility] [employer] [facility] 04/23/2023 11:59:57 01/23/20 23 Nail Debridement completed Bo Gil DPM [address], [place], [address], [employer] [facility] [employer] [facility] 01/22/2023 12:32:18 Hysterectomy completed Not Available [facility] 11/26/2022 01:06:21 total elbow replacement completed Not Available [facility] 11/26/2022 01:06:21 Ankle Surgery completed Not Available [facility] 11/26/2022 01:06:21 Cataract Surgery completed [facility] 11/26/2022 01:06:21 Imaging Results Imaging Date Name Status LastModified by Organiz ation Details LastModified Time 11/27/2023 XR, foot, 2 view completed roseann [facility] (Imaging) [address], [place], [address], 11/27/2023 11:49:19 01/12/2024 XR, foot, 3 or more view completed roseann [facility] [place] [address], [place], [address], 01/12/2024 08:53:53 02/08/2024 XR, foot, 3 or more view completed [facility] [place] [address], [place], [address], 02/08/2024 18:05:11 Procedure Notes None recorded. 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 CHANGE TRANSMITT ER [...] Updated DateTime 4 162.56 cm 39.5 kg/m2 121131. 25 g 85 /min 14 /min 98 % 98 % 98 mm[Hg] 71 mm[Hg] Barb Jamil [employer] 4 16:20:34 Date Recorded Body height Body mass index (BMI) Body weight Heart rate Respiratory rate Oxygen saturation Oxygen saturation in Arterial blood by Pulse oximetry Systolic blood pressure Diastolic blood pressure Provider Name and Address Organization Details Last Updated DateTime 4 162.56 cm 39.5 kg/m2 260790. 25 g 83 /min 14 /min 98 % 98 % 102 mm[Hg] 72 mm[Hg] Barb Jamil [employer] 4 17:07:15 Date Recorded Body height Body mass index (BMI) Body weight Heart rate Respiratory rate Body temperature Oxygen saturation Oxygen saturation in Arterial blood by Pulse oximetry Systolic blood pressure Diastolic blood pressure Provider Name and Address Organization Details Last Updated DateTime 4 162.56 cm 39.5 kg/m2 368092. 25 g 83 /min 14 /min 98 [degF] 98 % 98 % 110 mm[Hg] 72 mm[Hg] Yana Hernandez [employer] 4 17:07:09 Date Recorded Body height Body mass index (BMI) Body weight Heart rate Respiratory rate Oxygen saturation Oxygen saturation in Arterial blood by Pulse oximetry Systolic blood pressure Diastolic blood pressure Provider Name and Address Organization Details Last Updated DateTime 4 162.56 cm 39.5 kg/m2 908261. 25 g 85 /min 14 /min 98 % 98 % 109 mm[Hg] 55 mm[Hg] Barb Jamil [facility] [employer] [facility] 4 15:10:13 Date Recorded Heart rate Respiratory rate Oxygen saturation Oxygen saturation in Arterial blood by Pulse oximetry Systolic blood pressure Diastolic blood pressure Provider Name and Address Organization Details Last Updated DateTime 5 77 /min 14 /min 99 % 99 % 120 mm[Hg] 66 mm[Hg] Barb Omero [facility] [employer] [facility] 5 17:27:42 Social History Question Answer Notes LastModified by Organizat ion Details LastModified Time Tobacco Smoking Status Former Smoker Not Available [facility] 11/26/2022 01:02:39 What Is Your Level Of Alcohol Consumption? None [id number] Information not available 11/26/2022 What Is Your Level Of Caffeine Consumption? Heavy [id number] 0335 Information not available 11/26/2022 In The 14 Days Before Symptom Onset, Have You Had Close Contact With A Laboratory-confir med COVID-19 While That Case Was Ill? No [id number] Information not available 11/26/2022 In The 14 Days Before Symptom Onset, Have You Had Close Contact With A Person Who Is Under Investigation For COVID-19 While That Person Was Ill? No [id number] 4685 Information not available 11/26/2022 What Type Of Diet Are You Following? REGULAR MIGRATION.[id number] 2590 Information not available 11/26/2022 Which Illicit Or Recreational Drugs Have You Used? None [id number].[id number] Information not available 11/26/2022 Do You Or Have You Ever Used E-cigarettes Or Vape? Current User Of Electronic Cigarettes Vape [id number].[id number] 0665 Information not available 11/26/2022 What Is Your Relationship Status? [id number] 8086 Information not available 11/26/2022 At What Age Did You Start Smoking Tobacco? 16 MIGRATION.042974 4415 Information not available 11/26/2022 Do You Use Any Illicit Or Recreational Drugs? No [id number].242186 4760 Information not available 11/26/2022 Have You Recently Traveled Abroad? No MIGRATION.558691 3805 Information not available 11/26/2022 Do You Have Any Dietary Restrictions? No MIGRATION.854521 8461 Information not available 11/26/2022 Do You Or Have You Ever Used Any Other Forms Of Tobacco Or Nicotine? Yes MIGRATION.461626 8450 Information not available 11/26/2022 Sex: Female Functional Status None recorded. Mental Status None recorded. Family History Relationship Description Onset Age of this Age Resolved Age Notes LastModified by Organization Details LastModified Time Mother Malignant tumor of lung [id number] Not available 11/26/2022 01:06:23 Father Diabetes mellitus [id number] Not available 11/26/2022 01:06:23 Father Myocardial infarction MIGRATION.222 [id number] Not available 11/26/2022 01:06:23 Father Hypertensive disorder [id number] Not available 11/26/2022 01:06:23 Medical History Condition Response ASTHMA Y HIGH CHOLESTEROL / HYPERLIPIDEMIA Y EYE PROBLEMS Y DIABETES, TYPE Y HEADACHES/MIGRAINES Y Gynecological HistoryNo gynecological history recorded. Obstetrics History GPAL:G 0 P 0 0 0 0 Past Encounters Encounter ID Performer Location Encounter Start Date Encounter Closed Date Diagnosis/Indication Diagnosis SNOMED-CT Code Diagnosis ICD10 Code Diagnosis Note [id number] [facility] [place] [address] [place] [address] 12/04/2020 00:00:00 12/16/2020 19:42:25 [id number] [facility] [place] [address] [place] [address] 12/20/2020 00:00:00 12/20/2020 14:09:13 [id number] [facility] [place] [address] [place] [address] 04/04/2021 00:00:00 04/11/2021 08:42:54 [id number] [facility] [place] [address] [place] [address] 07/22/2021 00:00:00 07/22/2021 13:40:15 [id number] [facility] [place] [address] [place] [address] 07/23/2021 00:00:00 07/23/2021 10:46:33 [id number] [facility] [place] [address] [place] [address] 10/25/2021 00:00:00 10/25/2021 10:59:52 [id number] [facility] [place] [address] [place] [address] 12/26/2021 00:00:00 12/26/2021 12:58:03 [id number] [facility] [place] [address] [place] [address] 03/03/2022 00:00:00 03/03/2022 15:44:51 [id number] [facility] [place] [address] [place] [address] 03/27/2022 00:00:00 03/27/2022 11:15:10 [id number] [facility] [place] [address] [place] [address] 06/26/2022 00:00:00 06/26/2022 13:20:44 [id number] [facility] [place] [address] [place] [address] 07/21/2022 00:00:00 07/21/2022 12:46:21 [id number] [facility] [place] [address] [place] [address] 10/23/2022 00:00:00 10/23/2022 09:59:39 [id number] Izzy Meza MD [facility] [place] [address] [place] [address] 12/11/2022 11:48:12 12/11/2022 12:58:51 Well controlled type 2 diabetes mellitus 646666225 E11.9 a1c 6.4% down from 7.2%- continue [...] risk when taken with glimepirid e. Hypothyroidism 32723555 E03.9 FT4 in range- continue on unithroid [...] minerals and reduce inflammati on. Diabetes mellitus 246491 09 E11.9 Please note the above- well controlled . Dyslipidemia 935633485 E 78.5 Continue statin therapy. Spent up [...] she chooses to go outside of the [facility] to obtain labwork she was advised [...] in her case. She voiced understand ing. [id number] Bo Gil DPM [facility] [place] [address] [place] [address] 01/22/2023 11:49:38 01/22/2023 12:35:25 Diabetic peripheral neuropathy 034817610 E11.42 Patient educated on neuropathy , diabetes, diabetic diet, and daily foot exams. Patient is to check feet daily for new wounds, blisters, redness to prevent infection and ulceration s to the feet. Patient will return to clinic in 3 months for diabetic foot workup.Con tinue diabetic shoespatie nt shown where to obtain and diabetic inserts over-the-c ounter Dystrophia unguium 25063 009 L60.3 Nails 1 through 10 were debrided with sharp mechanical debridemen t without incident. Nails were debrided and greater than 50% length and thickness where needed. Foot callus 006085249 L8 4 Sub 5th metatarsal [facility] ed without incidentEd ucated on use of a pumice stoneFollo w-up in 3 months continue diabetic shoes and obtain diabetic insoles [id number] Bo Gil DPM [facility] [place] [address] [place] [employer] [place] [address] 04/23/2023 11:24:24 04/23/2023 14:08:29 Dystrophia unguium 94930604 L60.3 Nails 1 through 10 were debrided with sharp mechanical debridemen t without incident. Nails were debrided and greater than 50% length and thickness where needed. Diabetic p eripheral neuropathy 390544110 E11.42 Patient educated on neuropathy , diabetes, diabetic diet, and daily foot exams. Patient is to check feet daily for new wounds, blisters, redness to prevent infection and ulceration s to the feet. Patient will return to clinic in 3 months for diabetic foot workup.Con tinue diabetic shoespatie nt shown where to obtain and diabetic inserts over-the-c ounter Foot callus 730965553 L8 4 Sub 5th metatarsal head right footdebrid ed without incidentEd ucated on use of a pumice stoneFollo w-up in 3 months continue diabetic shoes and obtain diabetic insoles [id number] Bo Gil DPM [facility] [place] [address] [facility] [facility] [address] [place] [address] 09/10/2023 10:50:16 09/14/2023 11:44:10 Pain in right foot 8659987585 40221 M79.671 x-rays reviewed with the patient Bone spur of right foot 8074870482 23476 M25.774 lateral 5th metatarsal headoption s reviewed with the patientPat ient will conservati vely offload the area and if it does not improve may require surgical excision of spurrecomm end wide shoe gear Dystrophia unguium 04943 009 L60.3 Nails 1 through 10 were debrided with sharp mechanical debridemen t without incident. Nails were debrided and greater than 50% length and thickness where needed. [id number] Bo Gil DPM [facility] [place] [address] [place] [address] 10/22/2023 12:34:57 10/28/2023 09:25:45 Bone spur of right foot 8412655912 46270 M25.774 lateral 5th metatarsal headoption s reviewed with the patientObt ain surgical clearanceo btained EKG and lab workplan [...] -up after surgery Pain in right foot 40306 28971 30566 M79.671 x-rays reviewed with the patient Hammer toe 128242210 M20 .41 adductovar us rotation 5th toeplan derotation al arthroplas ty right 5th toeAll risks and benefits reviewed with the patient to complete full understand ing patient elects to continue despite possible risks. No guarantees were given or implied. Diabetic p eripheral neuropathy 499928195 E11.42 Patient educated on neuropathy , diabetes, diabetic diet, and daily foot exams. Patient is to check feet daily for new wounds, blisters, redness to prevent infection and ulceration s to the feet. Patient will return to clinic in 3 months for diabetic foot workup.Rx diabetic shoes and insoles Tailor's b union of right foot 1619208628 713550 M21.967 [id number] Bo Gil DPM [facility] [place] [address] [place] [address] 11/30/2023 14:48:35 11/30/2023 16:05:47 Postoperative care 743199989 Z48.89 Status post 3 days Doing well Dressing change Continue postop shoe Follow up in 1 week for dressing change [id number] Bo Gil DPM [facility] [place] [address] [place] [address] 12/14/2023 16:13:12 12/14/2023 17:27:14 Postoperative care 091843312 Z48.89 Status post approx 2 weekssutur es removedDoi ng wellDressi ng changeCont inue postop shoeFollow up 4 week for repeat xrays [id number] Bo Gil DPM [facility] [place] [address] [place] [address] 01/11/2024 16:56:59 01/12/2024 13:20:49 Postoperative care 244356392 Z48.89 X-rays reviewed with the patientinc jaimee healedmay return to normal shoe gearrecomm end wide shoe gear no tight shoes as this will cause recurrence of deformityD oing well Follow up 1 month for repeat x-rays [id number] Bo Gil DPM [facility] [place] [address] [place] [address] 02/08/2024 16:35:44 02/08/2024 18:10:16 Postoperative care 247340158 Z48.89 X-rays reviewed with the patientinc jaimee healedmay return to normal shoe gearrecomm end wide shoe gear no tight shoes as this will cause recurrence of deformityD oing well Follow up 1 month for repeat x-rays [id number] Bo Gil DPM [facility] [place] [address] [place] [address] 06/27/2024 14:26:25 06/30/2024 16:27:36 Diabetes mellitus 57202986 E11.9 Continue PCP recommenda tion Diabetic p eripheral neuropathy 662402369 E11.42 Patient educated on neuropathy , diabetes, diabetic diet, and daily foot exams. Patient is to check feet daily for new wounds, blisters, redness to prevent infection and ulceration s to the feet. Patient will return to clinic in 3 months for diabetic foot workup.Rx diabetic shoes and insoles- recommend daily Dystrophia unguium 10088 009 L60.3 Nails 1 through 10 were debrided with sharp mechanical debridemen t without incident. Nails were debrided and greater than 50% length and thickness where needed. [id number] Bo Gil DPM [facility] [place] [address] [facility] [facility] [address] [place] [address] 11/29/2024 14:43:08 12/12/2024 09:33:58 Diabetes mellitus 47383332 E11.9 Continue PCP recommenda tion Diabetic p eripheral neuropathy 648660859 E11.42 Patient educated on neuropathy , diabetes, diabetic diet, and daily foot exams. Patient is to check feet daily for new wounds, blisters, redness to prevent infection and ulceration s to the feet. Patient will return to clinic in 3 months for diabetic foot workup.Rx diabetic shoes and insoles- recommend daily Dystrophia unguium 47418 009 L60.3 Nails 1 through 10 were debrided with sharp mechanical debridemen t without incident. Nails were debrided and greater than 50% length and thickness where needed. Diabetic on insulin 1707 54607 Z79.4 insulin and oral medication Health Concerns Section Related Observation LastModified by Organization Detai ls LastModified Time None Recorded Concern Status LastModified by Organization Details LastModified Time None Recorded Advance Directives Directive None Recorded Payers Encounter Date Sequence Insurance Name Policy Number Policy Elmore Covered Member ID Elmore Member ID Guarantor Name 12/14/2023 1 [facility] (MEDICARE REPLACEMENT/AD VANTAGE - PPO) [id number] Ten Preciado [id number] Ten Preciado 12/14/2023 2 [employer] [facility] [facility] ON OR AFTER 08/28/2020 (MEDICAID REPLACEMENT - HMO) Ten Preciado [id number] Ten Preciado 01/11/2024 1 [facility] (MEDICARE REPLACEMENT/AD VANTAGE - PPO) [id number] Ten Preciado [id number] Ten Preciado 01/11/2024 2 [employer] [place] - [place] ON OR AFTER 2020 (MEDICAID REPLACEMENT - HMO) Ten Preciado [id number] Ten Preciado 02/08/2024 1 [facility] (MEDICARE REPLACEMENT/AD VANTAGE - PPO) [id number] Ten Preciado [id number] Ten Preciado 02/08/2024 2 [employer] [place] AFTER 2020 (MEDICAID REPLACEMENT - HMO) [facility] [id number] [facility] 06/27/2024 1 [facility] (MEDICARE REPLACEMENT/AD VANTAGE - PPO) [id number] [facility] [id number] [facility] 06/27/2024 2 [employer] [place] - [place] ON OR AFTER 2020 (MEDICAID REPLACEMENT - HMO) [facility] [id number] [facility] 11/28/2024 1 [facility] (MEDICARE REPLACEMENT/AD VANTAGE - PPO) [id number] [facility] [id number] [facility] 11/28/2024 2 [employer] [place] 2020 (MEDICAID REPLACEMENT - HMO) [facility] [id number] [facility] Notes Date Note Type Note [...] denies any other complaints. Bo Gil DPM [address] [place] [address], [place], [address], [facility] 12/14/2023 17:12:39 01/11/2024 text/html . Patient is [...] Gil DPM [address], [place], [address], [facility] 01/12/2024 08:54:13 02/08/2024 text/html . Patient is [...] other complaints. Bo Gil DPM [address], [place], [address], [facility] 02/08/2024 18:05:37 06/27/2024 text/html . Patient is [...] Gil DPM [address], [place], [address], [facility] 06/27/2024 15:41:59 11/28/2024 text/html . Patient is a 64-year-old female diabetic she returns for routine diabetic foot care she states she is doing well she denies any wounds or foot pain with walking. Patient continues to have mild numbness and tingling in the feet she denies any new calluses. Patient states her nails are long would like to have them cut as she can not cut them. Patient denies any other complaints. Bo Gil DPM [address], [place], [address], [facility] 12/12/2024 09:33:57 OBGyn Episode No OBEpisode recorded.
--- OUTSIDE RECORDS SUMMARY | 2024-12-13 09:04 | XMS_ITS | Clinical Summary ---
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
--- OUTSIDE RECORDS SUMMARY | 2024-12-13 09:04 | XMS_ITS | Encounter Summary ---
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
[2024-12-13 09:55] LABS: Alanine Aminotransferase 33 U/L (14-59); Albumin Level 4.2 g/dL (3.4-5.0); Alkaline Phosphatase 82 U/L (46-116); Anion Gap 12 mmol/L (4-12); Aspartate Amino Transferase 12 U/L (15-37); Bilirubin,Total 0.3 mg/dL (0.00-1.00); Blood Urea Nitrogen 21 mg/dL (7-18); Calcium 9.2 mg/dL (8.5-10.1); Carbon Dioxide 22 mmol/L (21-32); Chloride 107 mmol/L (98-108); Estimated Glomerular Filt Rate 59; Glucose 169 mg/dL (70-99); Osmolality Calculated 299 mOsm/kg (285-295); Sodium 141 mmol/L (136-145); Total Protein 7.2 g/dL (6.4-8.2)
[2024-12-15 01:13] LABS: Vitamin D 25 Hydroxy 26 ng/mL (30-100)
== END 2024-12-13 08:45 | disposition home or self-care (01) ==
LOC: CHSLAB 08:45
PROVIDERS: PCP Nurse Practitioner Family; Visit Provider Internal Medicine
DX: E78.2 Mixed hyperlipidemia (principal); E03.9 Hypothyroidism, unspecified; E11.40 Type 2 diabetes mellitus with diabetic neuropathy, unspecified; Z79.4 Long term (current) use of insulin; I10 Essential (primary) hypertension; M81.0 Age-related osteoporosis without current pathological fracture; E78.5 Hyperlipidemia, unspecified; Z71.3 Dietary counseling and surveillance
CPT/HCPCS: 36415; 80053; 82088; 82306; 82533; 83835; 84244

== ENCOUNTER 2024-12-20 08:55 | Outpatient (CLI) | payer MEDICARE, MEDICAID, SELFPAY ==
--- OUTSIDE RECORDS SUMMARY | 2024-12-20 09:41 | XMS_ITS | Clinical Summary ---
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
--- OUTSIDE RECORDS SUMMARY | 2024-12-20 09:41 | XMS_ITS | Encounter Summary ---
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
--- OUTSIDE RECORDS SUMMARY | 2024-12-20 09:41 | XMS_ITS | Data Portability ---
Author Organization [place] - [facility] [employer] [facility], Main Office Address [address] [place] [address] Care Team Providers Care Account Resolution Analyst Name Role Phone CATRACHO HARIS Primary Care Provider CATRACHO HARIS Referring Provider [phone] Assessment Encounter Date Assessment Date Assessment LastModified by Organization Details LastModified Time 12/14/2023 12/14/2023 This note is dictated and transcribed by [employer]. Authorization Specialist variances may occur. Despite proofreading, typographical errors may occur. Occasional wrong-word or s ound-a-like substitutions may have occurred due to the inherent limitations of voice recording. Read the chart carefully and recognize, using context, where substitutions have occurred. Not available 12/14/2023 17:10:53 02/08/2024 02/08/2024 This note is dictated and transcribed by [employer]. Authorization Specialist variances may occur. Despite proofreading, typographical errors may occur. Occasional wrong-word or 'bxvgk-z-vkbo' substitutions may have occurred due to the inherent limitations of voice recording. Read the chart carefully and recognize, using context, where substitutions have occurred. Not available 02/08/2024 18:03:06 06/27/2024 06/27/2024 This note is dictated and transcribed by [employer]. Authorization Specialist variances may occur. Despite proofreading, typographical errors may occur. Occasional wrong-word or 'dhsvx-n-dajb' substitutions may have occurred due to the inherent limitations of voice recording. Read the chart carefully and recognize, using context, where substitutions have occurred. Not available 06/27/2024 15:41:19 11/28/2024 11/28/2024 This note is dictated and transcribed by [employer]. Authorization Specialist variances may occur. Despite proofreading, typographical errors may occur. Occasional wrong-word or 'ashsw-n-zunt' substitutions may have occurred due to the [...] view 024 02/08/20 24 [email or web address] [facility] [place], [address], [place], [address], 4 18:05:11 XR, foot, 3 or more view 024 01/12/[email or web address] [facility] [place], [address], [place], [address], 4 08:53:53 Medication Orders None record ed. Patient TargetsNo targets recorded. Patient InstructionsNo instructions recorded. Reason for Referral None Reported. Results Created Date Observation Date Name Description Value Unit Range Abnormal Flag Note LastModifiedBy Organization Detail LastModifiedTime 11/27/19 24 11/27/2023 GLUCO SE (POIN T OF CARE) glucose (point of care) 114 mg/dL 74-99 high Not Available [facility] (Lab) [address] [place], [address], 11/27/2023 10:16:59 11/27/19 24 11/27/2023 XR, foot, 2 view [facility] [address] [place] [address] Patien t Name: MARYCARMEN PRECIADO Access ion #: [id number] Sex: F : 1959 0 3 [...] 2023 09:37: 04 AM Page 1 [email or web address] [place] [facility] ([facility]) [address] [place] [address], [address], 11/27/2023 11:49:19 01/12/20 24 XR, foot, 3 or more view No observ ation record ed. [email or web address] [facility] [place] [address], [place], [address], 01/12/2024 08:53:53 02/08/20 24 XR, foot, 3 or more view No observ ation record ed. [email or web address] [facility] [place] [address], [place], [address], 02/08/2024 18:05:11 Result Notes None recorded. Problems Name Problem SNOMED Code Status Onset Date Resolution Date Notes Provider Name and Address Organization Details Recorded Time Pain of left ankle joint 2128554582485 9103 Active 2020 Not Available [facility] 3 01:10:33 Dry skin 97250024 Active 2021 Not Available [facility] 3 01:10:34 Unable to cut own toenails 882371292 Active 2022 Not Available [facility] 3 01:10:34 Dyslipidem ia 094387563 Active 2021 Not Available [facility] 3 01:10:34 Hypothyroi dism 06599430 Active 2021 Not Available [facility] 3 01:10:34 Diabetic peripheral neuropathy 920179576 Active 2022 Not Available [facility] 3 01:10:34 Uncontroll ed type 2 diabetes mellitus 220435637 Active 2021 Not Available [facility] 3 01:10:34 Well controlled type 2 diabetes mellitus 165480177 Active 2021 Not Available [facility] 3 01:10:34 Diabetes mellitus 46848159 Active 2020 Not Available [facility] 3 01:10:34 Weight gain 8273257 Active 2021 Not Available [facility] 3 01:10:34 Essential hypertensi on 03454023 Active 2022 Izzy Meza MD [address], [address], [place], [address] , [facility] 3 15:52:04 Dystrophia unguium 87869739 Active 2022 Bo Gil DPM [address], [address], [place], [address] , [facility] 3 12:32:42 Foot callus 163019357 Active 2022 Bo Gil DPM [address], [address], [place], [address] , [facility] 3 12:32:46 Pain in right foot 8238703799848 07 Active 2022 Bo Gil DPM [address], [address], [place], [address] , [facility] 3 11:07:38 Bone spur of right foot 2843175863983 03 Active 2022 Bo Gil DPM [address], [address], [place], [address] , [facility] 3 09:03:56 Hammer toe 706911929 Active 2023 Bo Gil DPM [address], [address], [place], [address] , [facility] 4 13:21:57 Tailor's bunion of right foot 5218900755506 109 Active 2023 Bo Gil DPM [address], [address], [place], [address] , [facility] 4 18:08:27 Postoperat todd care Active 2023 Bo Gil DPM [address], [address], [place], [address] , [facility] 4 17:11:38 Diabetic on insulin 288968526 Active 2024 Bo Gil DPM [address], [address], [place], [address] , [facility] 5 09:33:04 Problem Notes None recorded. Procedures Surgical History Date Name Laterality Status Provider Name and Address Organization Details Recorded Time 11/30/19 25 Nail Debridement completed Bo Gil DPM [address], [address], [place], [address], [facility] 12/12/2024 09:31:54 06/27/20 24 Nail Debridement completed Bo Gil DPM [address], [address], [place], [address], [facility] 06/27/2024 15:40:26 09/10/20 23 Nail Debridement completed [address], [address], [place], [address], [facility] 09/10/2023 11:07:21 04/23/20 23 Nail Debridement completed Bo Gil DPM [address], [address], [place], [address], [facility] [employer] [facility] [employer] [facility] 04/23/2023 12:00:12 04/23/20 23 Callus Debridement, One completed Bo Gil DPM [address], [place], [address], [facility] [employer] [facility] [employer] [facility] 04/23/2023 11:59:57 01/23/20 23 Nail Debridement completed Bo Gil DPM [address], [place], [address], [facility] [employer] [facility] 01/22/2023 12:32:18 Hysterectomy completed Not Available [facility] 11/26/2022 01:06:21 total elbow replacement completed Not Available [facility] 11/26/2022 01:06:21 Ankle Surgery completed Not Available [facility] 11/26/2022 01:06:21 Cataract Surgery completed Not Available [facility] 11/26/2022 01:06:21 Imaging Results Imaging Date Name Status LastModified by Organiz ation Details LastModified Time 11/27/2023 XR, foot, 2 view completed [facility] (Imaging) [address], [place], [address], 11/27/2023 11:49:19 01/12/2024 XR, foot, 3 or more view completed roseann [facility] [place] [address], [place], [address], 01/12/2024 08:53:53 02/08/2024 XR, foot, 3 or more view completed roseann [facility] [place] [address], [place], [address], 02/08/2024 18:05:11 Procedure Notes None recorded. Medical [...] Available Not Available Not Available Dexcom G6 Magnetic Prospecting Operator USE DIRECTED FOR [facility] S GLUCOSE MONITORIN G 12/13 completed Not Available Not Available Not Available [employer]com G6 Transmitter device USE DIRECTED FOR [facility] S GLUCOSE MONITORIN G. CHANGE TRANSMITT ER [...] Updated DateTime 4 162.56 cm 39.5 kg/m2 237844. 25 g 85 /min 14 /min 98 % 98 % 98 mm[Hg] 71 mm[Hg] Barb Jamil [employer] 4 16:20:34 Date Recorded Body height Body mass index (BMI) Body weight Heart rate Respiratory rate Oxygen saturation Oxygen saturation in Arterial blood by Pulse oximetry Systolic blood pressure Diastolic blood pressure Provider Name and Address Organization Details Last Updated DateTime 4 162.56 cm 39.5 kg/m2 905493. 25 g 83 /min 14 /min 98 % 98 % 102 mm[Hg] 72 mm[Hg] Barb Jamil [facility] 4 17:07:15 Date Recorded Body height Body mass index (BMI) Body weight Heart rate Respiratory rate Body temperature Oxygen saturation Oxygen saturation in Arterial blood by Pulse oximetry Systolic blood pressure Diastolic blood pressure Provider Name and Address Organization Details Last Updated DateTime 4 162.56 cm 39.5 kg/m2 678557. 25 g 83 /min 14 /min 98 [degF] 98 % 98 % 110 mm[Hg] 72 mm[Hg] Yana Hernandez [facility] 4 17:07:09 Date Recorded Body height Body mass index (BMI) Body weight Heart rate Respiratory rate Oxygen saturation Oxygen saturation in Arterial blood by Pulse oximetry Systolic blood pressure Diastolic blood pressure Provider Name and Address Organization Details Last Updated DateTime 4 162.56 cm 39.5 kg/m2 374189. 25 g 85 /min 14 /min 98 % 98 % 109 mm[Hg] 55 mm[Hg] Barb Jamil [facility] [employer] [facility] 4 15:10:13 Date Recorded Heart rate Respiratory rate Oxygen saturation Oxygen saturation in Arterial blood by Pulse oximetry Systolic blood pressure Diastolic blood pressure Provider Name and Address Organization Details Last Updated DateTime 5 77 /min 14 /min 99 % 99 % 120 mm[Hg] 66 mm[Hg] Barb Omero [facility] [employer] [facility] 5 17:27:42 Social History Question Answer Notes LastModified by Organizat ion Details LastModified Time Tobacco Smoking Status Former Smoker Not Available [facility] 11/26/2022 01:02:39 What Is Your Level Of Alcohol Consumption? None [id number] Information not available 11/26/2022 What Is Your Level Of Caffeine Consumption? Heavy MIGRATION.[id number] Information not available 11/26/2022 In The 14 Days Before Symptom Onset, Have You Had Close Contact With A Laboratory-confir med COVID-19 While That Case Was Ill? No MIGRATION.[id number] 2298 Information not available 11/26/2022 In The 14 Days Before Symptom Onset, Have You Had Close Contact With A Person Who Is Under Investigation For COVID-19 While That Person Was Ill? No MIGRATION.[id number] 9514 Information not available 11/26/2022 What Type Of Diet Are You Following? REGULAR [id number] 2021 Information not available 11/26/2022 Which Illicit Or Recreational Drugs Have You Used? None MIGRATION.[id number] 4721 Information not available 11/26/2022 Do You Or Have You Ever Used E-cigarettes Or Vape? Current User Of Electronic Cigarettes Vape MIGRATION.916634 2989 Information not available 11/26/2022 What Is Your Relationship Status? MIGRATION.169188 3486 Information not available 11/26/2022 At What Age Did You Start Smoking Tobacco? 16 MIGRATION.761021 5928 Information not available 11/26/2022 Do You Use Any Illicit Or Recreational Drugs? No MIGRATION.122944 7866 Information not available 11/26/2022 Have You Recently Traveled Abroad? No MIGRATION.946014 7021 Information not available 11/26/2022 Do You Have Any Dietary Restrictions? No MIGRATION.740219 5341 Information not available 11/26/2022 Do You Or Have You Ever Used Any Other Forms Of Tobacco Or Nicotine? Yes MIGRATION.701568 2531 Information not available 11/26/2022 Sex: Female Functional Status None recorded. Mental Status None recorded. Family History Relationship Description Onset Age of this Age Resolved Age Notes LastModified by Organization Details LastModified Time Mother Malignant tumor of lung [id number] Not available 11/26/2022 01:06:23 Father Diabetes mellitus [id number].159 [id number] Not available 11/26/2022 01:06:23 Father Myocardial infarction MIGRATION.674 [id number] Not available 11/26/2022 01:06:23 Father Hypertensive disorder [id number].[id number] Not available 11/26/2022 01:06:23 Medical History Condition Response HIGH CHOLESTEROL / HYPERLIPIDEMIA Y EYE PROBLEMS Y DIABETES, TYPE Y ASTHMA Y HEADACHES/MIGRAINES Y Gynecological HistoryNo gynecological history recorded. Obstetrics History GPAL:G 0 P 0 0 0 0 Past Encounters Encounter ID Performer Location Encounter Start Date Encounter Closed Date Diagnosis/Indication Diagnosis SNOMED-CT Code Diagnosis ICD10 Code Diagnosis Note [id number] [facility] [address] [place] [address] 12/04/2020 00:00:00 12/16/2020 19:42:25 [id number] [facility] [place] [address] [place] [address] 12/20/2020 00:00:00 12/20/2020 14:09:13 [id number] [facility] [place] [address] [place] [address] 04/04/2021 00:00:00 04/11/2021 08:42:54 [id number] [facility] [place] [address] [place] [address] 07/22/2021 00:00:00 07/22/2021 13:40:15 [id number] [facility] [place] [address] [place] [address] 07/23/2021 00:00:00 07/23/2021 10:46:33 [id number] [facility] [place] [address] [place] [address] 10/25/2021 00:00:00 10/25/2021 10:59:52 [id number] [facility] [place] [address] [place] [address] 12/26/2021 00:00:00 12/26/2021 12:58:03 [id number] [facility] [place] [address] [place] [address] 03/03/2022 00:00:00 03/03/2022 15:44:51 [id number] [facility] [place] [address] [place] [address] 03/27/2022 00:00:00 03/27/2022 11:15:10 [id number] [facility] [place] [address] [place] [address] 06/26/2022 00:00:00 06/26/2022 13:20:44 [id number] [facility] [place] [address] [place] [address] 07/21/2022 00:00:00 07/21/2022 12:46:21 [id number] [facility] [place] [address] [place] [address] 10/23/2022 00:00:00 10/23/2022 09:59:39 [id number] Izzy Meza MD [facility] [place] [address] [place] [address] 12/11/2022 11:48:12 12/11/2022 12:58:51 Well controlled type 2 diabetes mellitus 285776182 E11.9 a1c 6.4% down from 7.2%- continue [...] risk when taken with glimepirid e. Hypothyroidism 03659049 E03.9 FT4 in range- continue on unithroid [...] minerals and reduce inflammati on. Diabetes mellitus 559634 09 E11.9 Please note the above- well controlled . Dyslipidemia 035812775 E 78.5 Continue statin therapy. Spent up [...] she chooses to go outside of the [facility] to obtain labwork she was [...] in her case. She voiced understand ing. [id number] Bo Gil DPM [facility] [place] [address] [place] [address] 01/22/2023 11:49:38 01/22/2023 12:35:25 Diabetic peripheral neuropathy 100088744 E11.42 Patient educated on neuropathy , diabetes, diabetic diet, and daily foot exams. Patient is to check feet daily for new wounds, blisters, redness to prevent infection and ulceration s to the feet. Patient will return to clinic in 3 months for diabetic foot workup.Con tinue diabetic shoespatie nt shown where to obtain and diabetic inserts over-the-c ounter Dystrophia unguium 18534 009 L60.3 Nails 1 through 10 were debrided with sharp mechanical debridemen t without incident. Nails were debrided and greater than 50% length and thickness where needed. Foot callus 359817607 L8 4 Sub 5th [facility]atarsal [facility] without incidentEd ucated on use of a pumice stoneFollo w-up in 3 months continue diabetic shoes and obtain diabetic insoles [id number] Bo Gil DPM [facility] [place] [address] [place] [address] 04/23/2023 11:24:24 04/23/2023 14:08:29 Dystrophia unguium 27654689 L60.3 Nails 1 through 10 were debrided with sharp mechanical debridemen t without incident. Nails were debrided and greater than 50% length and thickness where needed. Diabetic p eripheral neuropathy 758557938 E11.42 Patient educated on neuropathy , diabetes, diabetic diet, and daily foot exams. Patient is to check feet daily for new wounds, blisters, redness to prevent infection and ulceration s to the feet. Patient will return to clinic in 3 months for diabetic foot workup.Con tinue diabetic shoespatie nt shown where to obtain and diabetic inserts over-the-c ounter Foot callus 532165472 L8 4 Sub 5th metatarsal head right footdebrid ed without incidentEd ucated on use of a pumice stoneFollo w-up in 3 months continue diabetic shoes and obtain diabetic insoles [id number] Bo Gil DPM [facility] [place] [address] [place] [address] 09/10/2023 10:50:16 09/14/2023 11:44:10 Pain in right foot 0242472552 32931 M79.671 x-rays reviewed with the patient Bone spur of right foot 3232131164 00936 M25.774 lateral 5th metatarsal headoption s reviewed with the patientPat ient will conservati vely offload the area and if it does not improve may require surgical excision of spurrecomm end wide shoe gear Dystrophia unguium 26880 009 L60.3 Nails 1 through 10 were debrided with sharp mechanical debridemen t without incident. Nails were debrided and greater than 50% length and thickness where needed. [id number] Bo Gil DPM [facility] [place] [address] [place] [address] 10/22/2023 12:34:57 10/28/2023 09:25:45 Bone spur of right foot 6912434887 76349 M25.774 lateral 5th metatarsal headoption s reviewed [...] -up after surgery Pain in right foot 42099 68570 30247 M79.671 x-rays reviewed with the patient Hammer toe 619087234 M20 .41 adductovar us rotation 5th toeplan derotation al arthroplas ty right 5th toeAll risks and benefits reviewed with the patient to complete full understand ing patient elects to continue despite possible risks. No guarantees were given or implied. Diabetic p eripheral neuropathy 779756188 E11.42 Patient educated on neuropathy , diabetes, diabetic diet, and daily foot exams. Patient is to check feet daily for new wounds, blisters, redness to prevent infection and ulceration s to the feet. Patient will return to clinic in 3 months for diabetic foot workup.Rx diabetic shoes and insoles Tailor's b union of right foot 7772391944 649159 M21.864 [id number] Bo Gil DPM [facility] [place] [address] [place] [address] 11/30/2023 14:48:35 11/30/2023 16:05:47 Postoperative care 484564413 Z48.89 Status post 3 days Doing well Dressing change Continue postop shoe Follow up in 1 week for dressing change [id number] Bo Gil DPM [facility] [place] [address] [place] [address] 12/14/2023 16:13:12 12/14/2023 17:27:14 Postoperative care 381747130 Z48.89 Status post approx 2 weekssutur es removedDoi ng wellDressi ng changeCont inue postop shoeFollow up 4 week for repeat xrays [id number] Bo Gil DPM [facility] [place] [address] [place] [address] 01/11/2024 16:56:59 01/12/2024 13:20:49 Postoperative care 495430337 Z48.89 X-rays reviewed with the patientinc jaimee healedmay return to normal shoe gearrecomm end wide shoe gear no tight shoes as this will cause recurrence of deformityD oing well Follow up 1 month for repeat x-rays [id number] Bo Gil DPM [facility] [place] [address] [place] [address] 02/08/2024 16:35:44 02/08/2024 18:10:16 Postoperative care 126144285 Z48.89 X-rays reviewed with the patientinc jaimee healedmay return to normal shoe gearrecomm end wide shoe gear no tight shoes as this will cause recurrence of deformityD oing well Follow up 1 month for repeat x-rays [id number] Bo Gil DPM [facility] [place] [address] [place] [address] 06/27/2024 14:26:25 06/30/2024 16:27:36 Diabetes mellitus 39013329 E11.9 Continue PCP recommenda tion Diabetic p eripheral neuropathy 155565704 E11.42 Patient educated on neuropathy , diabetes, diabetic diet, and daily foot exams. Patient is to check feet daily for new wounds, blisters, redness to prevent infection and ulceration s to the feet. Patient will return to clinic in 3 months for diabetic foot workup.Rx diabetic shoes and insoles- recommend daily Dystrophia unguium 39364 009 L60.3 Nails 1 through 10 were debrided with sharp mechanical debridemen t without incident. Nails were debrided and greater than 50% length and thickness where needed. [id number] Bo Gil DPM [facility] [place] [address] [place] [address] 11/29/2024 14:43:08 12/13/2024 11:22:30 Diabetes mellitus 05750390 E11.9 Continue PCP recommenda tion Diabetic p eripheral neuropathy 684430763 E11.42 Patient educated on neuropathy , diabetes, diabetic diet, and daily foot exams. Patient is to check feet daily for new wounds, blisters, redness to prevent infection and ulceration s to the feet. Patient will return to clinic in 3 months for diabetic foot workup.Rx diabetic shoes and insoles- recommend daily Dystrophia unguium 23229 009 L60.3 Nails 1 through 10 were debrided with sharp mechanical debridemen t without incident. Nails were debrided and greater than 50% length and thickness where needed. Diabetic on insulin 1707 58919 Z79.4 insulin and oral medication Health Concerns Section Related Observation LastModified by Organization Detai ls LastModified Time None Recorded Concern Status LastModified by Organization Details LastModified Time None Recorded Advance Directives Directive None Recorded Payers Encounter Date Sequence Insurance Name Policy Number Policy Elmore Covered Member ID Elmore Member ID Guarantor Name 12/14/2023 1 [facility] (MEDICARE REPLACEMENT/AD VANTAGE - PPO) [id number] Ten Preciado [id number] Ten Preciado 12/14/2023 2 [employer] [facility] ON OR AFTER 08/28/2020 (MEDICAID REPLACEMENT - HMO) Ten Preciado [id number] Ten Preciado 01/11/2024 1 [facility] (MEDICARE REPLACEMENT/AD VANTAGE - PPO) [id number] Ten Preciado [id number] Ten Preciado 01/11/2024 2 [employer] [place] ON [place] AFTER 2020 (MEDICAID REPLACEMENT - HMO) Ten Preciado [id number] Ten Preciado 02/08/2024 1 [facility] (MEDICARE REPLACEMENT/AD VANTAGE - PPO) [id number] Ten Preciado [id number] Ten Preciado 02/08/2024 2 [employer] [place] 2020 (MEDICAID REPLACEMENT - HMO) Ten Preciado [id number] Ten Preciado 06/27/2024 1 [facility] (MEDICARE REPLACEMENT/AD VANTAGE - PPO) [id number] Ten Preciado [id number] Ten Preciado 06/27/2024 2 [employer] [place] 2020 (MEDICAID REPLACEMENT - HMO) Ten Preciado [id number] Ten Preciado 11/28/2024 1 [facility] (MEDICARE REPLACEMENT/AD VANTAGE - PPO) [id number] Ten Preciado [id number] Ten Preciado 11/28/2024 2 [employer] [place] AFTER 2020 (MEDICAID REPLACEMENT - HMO) Ten Preciado [id number] Ten Preciado Notes Date Note Type Note [...] denies any other complaints. Bo Gil DPM [address] [place] [address], [place], [address], [facility] 12/14/2023 17:12:39 01/11/2024 [...] Gil DPM [address], [place], [address], [facility] 01/12/2024 08:54:13 02/08/2024 text/html . Patient is [...] Gil DPM [address], [place], [address], [facility] 02/08/2024 18:05:37 06/27/2024 text/html . Patient is [...] Gil DPM [address], [place], [address], Nazar 06/27/2024 15:41:59 11/28/2024 text/html . Patient is [...] Gil DPM [address], [place], [address], Nazar 12/12/2024 09:33:57 OBGyn Episode No OBEpisode recorded.
== END 2024-12-20 08:56 | disposition home or self-care (01) ==
LOC: CHSLAB 08:56
PROVIDERS: PCP Nurse Practitioner Family; Visit Provider Internal Medicine
DX: E78.2 Mixed hyperlipidemia (principal); E03.9 Hypothyroidism, unspecified; E11.40 Type 2 diabetes mellitus with diabetic neuropathy, unspecified; Z79.4 Long term (current) use of insulin; I10 Essential (primary) hypertension; M81.0 Age-related osteoporosis without current pathological fracture; Z71.3 Dietary counseling and surveillance
CPT/HCPCS: 82530; 83835

== ENCOUNTER 2025-01-12 10:16 | Outpatient (CLI) | payer MEDICARE, MEDICAID, SELFPAY ==
--- OUTSIDE RECORDS SUMMARY | 2025-01-12 10:55 | XMS_ITS | Clinical Summary ---
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 Gender Identity Not on file Sexual Orientation [...] 2011 COVID-19 Vaccine (2023-2 5 season) 2024 RSV Immunization or 60+ Years (1 - 1-dose 75+ series) 2036 Meningococcal B Vaccine Aged Out No l onger eligible based on patient's age to complete this topic Meningococcal Vaccine Aged Out No rnai fernanda eligible based on patient's age to complete this topic Pneumococcal Vaccine: Pediat rics (0 to 5 Years) and At-Risk Patients (6 to 49 Years) Aged Out No longer eligible b ased on patient's age to complete this topic RSV Immunizations Under 20 Months Aged Out No longer eligible based on patient's age to complete this topic Insurance MEDICARE MEDICAID Advance Directives Documents on File Type Date Recorded Patient Machine Sizer Expl anation Legal Documents 07/27/2012 12:00 AM RETIR EMENT OF RECORD Legal Documents 07/27/2012 12:00 AM RETIR EMENT OF RECORD Care Teams Solid Plasterer Relationship Specialty Start Date End Date Keagan Richards MD [address] [place] [address] PCP - General FAMILY PRACTICE 06/14/19
--- OUTSIDE RECORDS SUMMARY | 2025-01-12 10:55 | XMS_ITS | Clinical Summary ---
Author Organization [facility] Flaco bhandari [facility] Address [address] [facility] [place] [address] Care Team Providers Care Emergency Department Clinician Name Role Phone Unavailable Primary Care Provider Unavailabl e Social History Tobacco Use Types Packs/Day Years Used Date Smoking Tobacco: Never Assessed Comments Unknown Sex and Gender Information Value Date Recorded Sex Assigned at Not on file Legal Sex Female 1:13 PM CDT Gender Identity Not on file Sexual Orientation Not on file Plan of Treatment Upcoming Encounters Date Type Department Care Team ([facility] st Contact Info) Description 04/10/2025 3:00 PM CDT Office Visit [facility] Oncology and Hematology - [address] [facility] [address] [address] Artemio Luque MD [address] [facility] [address] [place] [address] Health Maintenance Due Date Last Done Comments DTAP/TDAP/TD VACCINES (1 - Tdap) 1980 HPV/Cotest (21-29) 1982 CERVICAL CANCER SCREENING 1991 HPV/Cotest (30-65) 1991 PAP SMEAR 1991 BREAST CANCER SCREENING 2001 COLORECTAL SCREENING 2006 Colorectal Cancer Screening 2006 FIT-DNA Q 3 years 2006 FIT/FOBT Q 1 year 2006 Flex Sig/CT Colonography Q 5 years 2006 ZOSTER VACCINE (1 of 2) 2011 INFLUENZA VACCINE (#1) 2024 RSV VACCINE (60+ or ) (1 - 1-dose 75+ series) 2036 Insurance [facility] [id number] MEDICAID [place]
--- OUTSIDE RECORDS SUMMARY | 2025-01-12 10:55 | XMS_ITS | Encounter Summary ---
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
--- OUTSIDE RECORDS SUMMARY | 2025-01-12 10:55 | XMS_ITS | Data Portability ---
Author Organization [place] - [facility] #[facility] [facility], Main Office Address [address] [place] [address] Care Team Providers Care Teasel Setter Name Role Phone CATRACHO HARIS Primary Care Provider CATRACHO HARIS Referring Provider [phone] Assessment Encounter Date Assessment Date Assessment LastModified by Organization Details LastModified Time 12/14/2023 12/14/2023 This note is dictated and transcribed by [employer]. Coun[employer] Screw Hole variances may occur. Despite proofreading, typographical errors may occur. Occasional wrong-word or s ound-a-like substitutions may have occurred due to the inherent limitations of voice recording. Read the chart carefully and recognize, using context, where substitutions have occurred. Not available 12/14/2023 17:10:53 02/08/2024 02/08/2024 This note is dictated and transcribed by [employer]. [employer] variances may occur. Despite proofreading, typographical errors may occur. Occasional wrong-word or 'zjrgq-g-mfwh' substitutions may have occurred due to the inherent limitations of voice recording. Read the chart carefully and recognize, using context, where substitutions have occurred. Not available 02/08/2024 18:03:06 06/27/2024 06/27/2024 This note is dictated and transcribed by [employer]. [employer] Scre[employer] Hole variances may occur. Despite proofreading, typographical errors may occur. Occasional wrong-word or 'qddxs-j-kjmt' substitutions may have occurred due to the inherent limitations of voice recording. Read the chart carefully and recognize, using context, where substitutions have occurred. Not available 06/27/2024 15:41:19 11/28/2024 11/28/2024 This note is dictated and transcribed by [employer]. [employer] Scre[employer] Hole variances may occur. Despite proofreading, typographical errors may occur. Occasional wrong-word or 'ashsn-a-pzcd' substitutions may have occurred due to the inherent limitations of voice recording. Read the chart carefully and recognize, using context, where substitutions have occurred. [email or web address] Not available 12/12/2024 09:32:53 Plan of Treatment Reminders Order Date Submit Date Provider Last Modified By Organization Details Last Modified Time Details Appointments Establish ed Patient 15 2024 02:30P Fatoumata Gil DPM Not available Not available Not available Lab None recorded. Referral None recorded. Procedures None recorded. Surgeries None recorded. Imaging XR, foot, 3 or more view 2023 024 [email or web address] [facility] [place], [address], [place], [address], 02/08/2024 18:05:11 XR, foot, 3 or more view 2023 024 [email or web address] [facility] [place], [address], [place], [address], 01/12/2024 08:53:53 Medication Orders None recorded. Patient TargetsNo targets recorded. Patient InstructionsNo instructions recorded. Reason for Referral None Reported. Results Created Date Observation Date Name Description Value Unit Range Abnormal Flag Note LastModifiedBy Organization Detail LastModifiedTime 11/27/1911/27/2023 GLUCO SE (POIN T OF CARE) glucose (point of care) 114 mg/dL 74-99 high Not Available [facility] (Lab) [address] [place], [address], 11/27/2023 10:16:59 11/27/19 24 11/27/2023 XR, foot, 2 view [facility] [address] [place] [address] Patien t Name: MARYCARMEN PRECIADO Access ion #: [id number] Sex: F : 1959 0 3 Dictat ed By: Jose Lu ms Attend ing Physic armin: BO BEJARANO Orderi ng Physic armin: CLARITA BENITEZ BO Exam Date: 2023 08:44 AM Exam Name: [...] 2023 09:37: 04 AM Page 1 [email or web address] [facility] [address] [place], [address], 11/27/2023 11:49:19 01/12/20 24 XR, foot, 3 or more view No observ ation record ed. [email or web address] [facility] [place] [address], [place], [address], 01/12/2024 08:53:53 02/08/20 24 XR, foot, 3 or more view No observ ation record ed. [email or web address] [facility] [place] [address], [place], [address], 02/08/2024 18:05:11 Result Notes None recorded. Problems Name Problem SNOMED Code Status Onset Date Resolution Date Notes Provider Name and Address Organization Details Recorded Time Pain of left ankle joint 5015810990872 9103 Active 2020 Not Available [employer] 3 01:10:33 Dry skin 35570901 Active 2021 Not Available [employer] 3 01:10:34 Unable to cut own toenails 041377421 Active 2022 Not Available [facility] 3 01:10:34 Dyslipidem ia 038451710 Active 2021 Not Available [facility] 3 01:10:34 Hypothyroi dism 17747445 Active 2021 Not Available [facility] 3 01:10:34 Diabetic peripheral neuropathy 321575213 Active 2022 Not Available [facility] 3 01:10:34 Uncontroll ed type 2 diabetes mellitus 287922358 Active 2021 Not Available [facility] 3 01:10:34 Well controlled type 2 diabetes mellitus 014530489 Active 2021 Not Available [facility] 3 01:10:34 Diabetes mellitus 91805197 Active 2020 Not Available [facility] 3 01:10:34 Weight gain 1471958 Active 2021 Not Available [facility] 3 01:10:34 Essential hypertensi on 76014541 Active 2022 Izzy Meza MD [address], [place], [address] , [employer] [facility] [employer] 3 15:52:04 Dystrophia unguium 68824799 Active 2022 Bo Gil DPM [address], [place], [address] , [employer] 3 12:32:42 Foot callus 261122356 Active 2022 Bo Gil DPM [address], [place], [address] , [employer] [facility] #[employer] [facility] 3 12:32:46 Pain in right foot 2767841168169 07 Active 2022 Bo Gil DPM [address], [place], [address] , [place] [employer] 3 11:07:38 Bone spur of right foot 1643615133508 03 Active 2022 Bo Gil DPM [address], [place], [address] , [employer] 3 09:03:56 Hammer toe 518818486 Active 2023 Bo Gil DPM [address], [place], [address] , [employer] 4 13:21:57 Tailor's bunion of right foot 9005374353403 109 Active 2023 Bo Gil DPM [address], [place], [address] , [employer] 4 18:08:27 Postoperat todd care Active 2023 Bo Gil DPM [address], [place], [address] , [employer] 4 17:11:38 Diabetic on insulin 331052277 Active 2024 Bo Gil DPM [address], [place], [address] , [employer] 5 09:33:04 Problem Notes None recorded. Procedures Surgical History Date Name Laterality Status Provider Name and Address Organization Details Recorded Time 11/30/19 25 Nail Debridement completed Bo Gil DPM [address], [place], [address], [employer] 12/12/2024 09:31:54 06/27/20 24 Nail Debridement completed Bo Gil DPM [address], [place], [address], [employer] 06/27/2024 15:40:26 09/10/20 23 Nail Debridement completed Bo Gil DPM [address], [place], [address], [employer] 09/10/2023 11:07:21 04/23/20 23 Nail Debridement completed Bo Gil DPM [address], [place], [address], [facility] [employer] [facility] 04/23/2023 12:00:12 04/23/20 23 Callus Debridement, One completed Bo Gil DPM [address], [place], [address], [facility] [employer] [facility] 04/23/2023 11:59:57 01/23/20 23 Nail Debridement completed Bo Gil DPM [address], [place], [address], [facility] [employer] [facility] 01/22/2023 12:32:18 Hysterectomy completed Not Available [facility] 11/26/2022 01:06:21 total elbow replacement completed [facility] Available [facility] 11/26/2022 01:06:21 [facility]le [facility] 11/26/2022 01:06:21 [facility]aract [facility] 11/26/2022 01:06:21 Imaging Results Imaging Date Name Status LastModified by Organiz [facility] Details LastModified Time 11/27/2023 XR, foot, 2 view completed [email or web address] [facility] (Imaging) [address], [place], [address], 11/27/2023 11:49:19 01/12/2024 XR, foot, 3 or more view completed [email or web address] [facility] [place] [address], [place], [address], 01/12/2024 08:53:53 02/08/2024 XR, foot, 3 or more view completed [email or web address] [facility] [place] [address], [place], [address], 02/08/2024 18:05:11 Procedure Notes None recorded. Medical [...] FlexTouch U-100 Insulin 100 unit/mL (3 mL) subcutane s pen Inject 30 units 3 times a day by subcutane ous route before meals for 90 days. 12/13 completed Not Available Not Available Not Available Ozempic 1 mg/dose (2 mg/1.5 mL) subcutane s pen injector Inject 1 mg every week by subcutane ous route in the morning for 30 days. 01/10 completed Not Available Not Available Not Available Ozempic 0.25 mg or 0.5 mg (2 mg/1.5 mL) subcut health tyler s pen injector Inject 0.5 mg every week by subcutane ous route in the morning for 30 days. 03/03 completed Not Available Not Available Not Available OneTouch Ultra Blue Test Strip USE TO CHECK BLOOD SUGAR THREE TIMES DAILY 01/10 completed Not Available Not Available Not Available Dexcom G6 Sensor device 12/13 completed Not Available Not Available Not Available Dexcom G6 Epic Beacon Analyst USE DIRECTED FOR [facility] S GLUCOSE MONITORIN G 12/13 completed Not Available Not Available Not Available Dexcom G6 Transmitter device USE DIRECTED FOR [facility] S GLUCOSE MONITORIN G. CHANGE [...] Updated DateTime 4 162.56 cm 39.5 kg/m2 363611. 25 g 85 /min 14 /min 98 % 98 % 98 mm[Hg] 71 mm[Hg] Barb Jamil [employer] 4 16:20:34 Date Recorded Body height Body mass index (BMI) Body weight Heart rate Respiratory rate Oxygen saturation Oxygen saturation in Arterial blood by Pulse oximetry Systolic blood pressure Diastolic blood pressure Provider Name and Address Organization Details Last Updated DateTime 4 162.56 cm 39.5 kg/m2 655492. 25 g 83 /min 14 /min 98 % 98 % 102 mm[Hg] 72 mm[Hg] Barb Jamil [employer] 4 17:07:15 Date Recorded Body height Body mass index (BMI) Body weight Heart rate Respiratory rate Body temperature Oxygen saturation Oxygen saturation in Arterial blood by Pulse oximetry Systolic blood pressure Diastolic blood pressure Provider Name and Address Organization Details Last Updated DateTime 4 162.56 cm 39.5 kg/m2 422475. 25 g 83 /min 14 /min 98 [degF] 98 % 98 % 110 mm[Hg] 72 mm[Hg] Yana Hernandez [employer] 4 17:07:09 Date Recorded Body height Body mass index (BMI) Body weight Heart rate Respiratory rate Oxygen saturation Oxygen saturation in Arterial blood by Pulse oximetry Systolic blood pressure Diastolic blood pressure Provider Name and Address Organization Details Last Updated DateTime 4 162.56 cm 39.5 kg/m2 305873. 25 g 85 /min 14 /min 98 % 98 % 109 mm[Hg] 55 mm[Hg] Barb Jamil [employer] 4 15:10:13 Date Recorded Heart rate Respiratory rate Oxygen saturation Oxygen saturation in Arterial blood by Pulse oximetry Systolic blood pressure Diastolic blood pressure Provider Name and Address Organization Details Last Updated DateTime 5 77 /min 14 /min 99 % 99 % 120 mm[Hg] 66 mm[Hg] Barb Jamil [employer] 5 17:27:42 Social History Question Answer Notes LastModified by Organizat ion Details LastModified Time Tobacco Smoking Status Former Smoker Not Available [facility] 11/26/2022 01:02:39 What Is Your Level Of Alcohol Consumption? None [id number] Information not available 11/26/2022 What Is Your Level Of Caffeine Consumption? Heavy [id number] Information not available 11/26/2022 In The 14 Days Before Symptom Onset, Have You Had Close Contact With A Laboratory-confir med COVID-19 While That Case Was Ill? No [id number] Information not available 11/26/2022 In The 14 Days Before Symptom Onset, Have You Had Close Contact With A Person Who Is Under Investigation For COVID-19 While That Person Was Ill? No [id number] Information not available 11/26/2022 What Type Of Diet Are You Following? REGULAR MIGRATION.[id number] 1228 Information not available 11/26/2022 Which Illicit Or Recreational Drugs Have You Used? None MIGRATION.[id number] Information not available 11/26/2022 Do You Or Have You Ever Used E-cigarettes Or Vape? Current User Of Electronic Cigarettes Vape MIGRATION.[id number] Information not available 11/26/2022 What Is Your Relationship Status? MIGRATION.[id number] Information not available 11/26/2022 At What Age Did You Start Smoking Tobacco? 16 MIGRATION.677906 9651 Information not available 11/26/2022 Do You Use Any Illicit Or Recreational Drugs? No MIGRATION.[id number] 4680 Information not available 11/26/2022 Have You Recently Traveled Abroad? No MIGRATION.485376 6269 Information not available 11/26/2022 Do You Have Any Dietary Restrictions? No MIGRATION.100866 1296 Information not available 11/26/2022 Do You Or Have You Ever Used Any Other Forms Of Tobacco Or Nicotine? Yes MIGRATION.110439 7799 Information not available 11/26/2022 Sex: Female Functional Status None recorded. Mental Status None recorded. Family History Relationship Description Onset Age of this Age Resolved Age Notes LastModified by Organization Details LastModified Time Mother Malignant tumor of lung [id number] Not available 11/26/2022 01:06:23 Father Diabetes mellitus [id number] [id number] Not available 11/26/2022 01:06:23 Father Myocardial infarction [id number] [id number] Not available 11/26/2022 01:06:23 Father Hypertensive disorder [id number] [id number] Not available 11/26/2022 01:06:23 Medical History Condition Response EYE PROBLEMS Y DIABETES, TYPE Y HEADACHES/MIGRAINES Y ASTHMA Y HIGH CHOLESTEROL / HYPERLIPIDEMIA Y Gynecological HistoryNo gynecological history recorded. Obstetrics History GPAL:G 0 P 0 0 0 0 Past Encounters Encounter ID Performer Location Encounter Start Date Encounter Closed Date Diagnosis/Indication Diagnosis SNOMED-CT Code Diagnosis ICD10 Code Diagnosis Note [id number] [facility] [place] [address] [place] [address] 12/04/2020 00:00:00 12/16/2020 19:42:25 [id number] [facility] [place] [address] [place] [address] 12/20/2020 00:00:00 12/20/2020 14:09:13 [id number] [facility] [place] [address] [place] [address] 04/04/2021 00:00:00 04/11/2021 08:42:54 [id number] [facility] [place] [address] [place] [address] 07/22/2021 00:00:00 07/22/2021 13:40:15 [id number] [facility] [place] [address] [place] [address] 07/23/2021 00:00:00 07/23/2021 10:46:33 [id number] [facility] [place] [address] [place] [address] 10/25/2021 00:00:00 10/25/2021 10:59:52 [id number] [facility] [place] [address] [place] [address] 12/26/2021 00:00:00 12/26/2021 12:58:03 [id number] [facility] [place] [address] [place] [address] 03/03/2022 00:00:00 03/03/2022 15:44:51 [id number] [facility] [place] [address] [place] [address] 03/27/2022 00:00:00 03/27/2022 11:15:10 [id number] [facility] [place] [address] [place] [address] 06/26/2022 00:00:00 06/26/2022 13:20:44 [id number] [facility] [place] [address] [place] [address] 07/21/2022 00:00:00 07/21/2022 12:46:21 [id number] [facility] [place] [address] [place] [address] 10/23/2022 00:00:00 10/23/2022 09:59:39 [id number] Izzy Meza MD [facility] [place] [address] [place] [address] 12/11/2022 11:48:12 12/11/2022 12:58:51 Well controlled type 2 diabetes mellitus 419582934 E11.9 a1c 6.4% down from 7.2%- continue [...] risk when taken with glimepirid e. Hypothyroidism 34477288 E03.9 FT4 in range- continue on unithroid [...] minerals and reduce inflammati on. Diabetes mellitus 106940 09 E11.9 Please note the above- well controlled . Dyslipidemia 154479539 E 78.5 Continue statin therapy. Spent up [...] she chooses to go outside of the [facility] to obtain labwork she was [...] in her case. She voiced understand ing. [id number] Bo Gil DPM [facility] [place] [address] [place] [address] 01/22/2023 11:49:38 01/22/2023 12:35:25 Diabetic peripheral neuropathy 216301126 E11.42 Patient educated on neuropathy , diabetes, diabetic diet, and daily foot exams. Patient is to check feet daily for new wounds, blisters, redness to prevent infection and ulceration s to the feet. Patient will return to clinic in 3 months for diabetic foot workup.Con tingita diabetic shoespatie nt shown where to obtain and diabetic inserts over-the-c ounter Dystrophia unguium 74968 009 L60.3 Nails 1 through 10 were debrided with sharp mechanical debridemen t without incident. Nails were debrided and greater than 50% length and thickness where needed. Foot callus 186375789 L8 4 Sub 5th metatarsal [facility] without incidentEd ucated on use of a pumice stoneFollo w-up in 3 months continue diabetic shoes and obtain diabetic insoles [id number] Bo Gil DPM [facility] [place] [address] [place] [address] 04/23/2023 11:24:24 04/23/2023 14:08:29 Dystrophia unguium 22971769 L60.3 Nails 1 through 10 were debrided with sharp mechanical debridemen t without incident. Nails were debrided and greater than 50% length and thickness where needed. Diabetic p eripheral neuropathy 613494477 E11.42 Patient educated on neuropathy , diabetes, diabetic diet, and daily foot exams. Patient is to check feet daily for new wounds, blisters, redness to prevent infection and ulceration s to the feet. Patient will return to clinic in 3 months for diabetic foot workup.Con tinue diabetic shoespatie nt shown where to obtain and diabetic inserts over-the-c ounter Foot callus 614995726 L8 4 Sub 5th metatarsal head right footdenew [facility] ed without incidentEd ucated on use of a pumice stoneFollo w-up in 3 months continue diabetic shoes and obtain diabetic insoles [id number] Bo Gil DPM [facility] [place] [address] [place] [address] 09/10/2023 10:50:16 09/14/2023 11:44:10 Pain in right foot 3652790283 88435 M79.671 x-rays reviewed with the patient Bone spur of right foot 4323114733 45794 M25.774 lateral 5th metatarsal headoption s reviewed with the patientPat ient will conservati vely offload the area and if it does not improve may require surgical excision of spurrecomm end wide shoe gear Dystrophia unguium 56937 009 L60.3 Nails 1 through 10 were debrided with sharp mechanical debridemen t without incident. Nails were debrided and greater than 50% length and thickness where needed. [id number] Bo Gil DPM [facility] [place] [address] [place] [address] 10/22/2023 12:34:57 10/28/2023 09:25:45 Bone spur of right foot 8965793927 38575 M25.774 lateral 5th metatarsal headoption s reviewed [...] -up after surgery Pain in right foot 66132 31017 11742 M79.671 x-rays reviewed with the patient Hammer toe 392830632 M20 .41 adductovar us rotation 5th toeplan derotation al arthroplas ty right 5th toeAll risks and benefits reviewed with the patient to complete full understand ing patient elects to continue despite possible risks. No guarantees were given or implied. Diabetic p eripheral neuropathy 853302747 E11.42 Patient educated on neuropathy , diabetes, diabetic diet, and daily foot exams. Patient is to check feet daily for new wounds, blisters, redness to prevent infection and ulceration s to the feet. Patient will return to clinic in 3 months for diabetic foot workup.Rx diabetic shoes and insoles Tailor's b union of right foot 0769275155 141125 M21.681 [id number] Bo Gil DPM [facility] [place] [address] [place] [address] 11/30/2023 14:48:35 11/30/2023 16:05:47 Postoperative care 151071642 Z48.89 Status post 3 days Doing well Dressing change Continue postop shoe Follow up in 1 week for dressing change [id number] Bo Gil DPM [facility] [place] [address] [place] [address] 12/14/2023 16:13:12 12/14/2023 17:27:14 Postoperative care 932900166 Z48.89 Status post approx 2 weekssutur es removedDoi ng wellDressi ng changeCont inue postop shoeFollow up 4 week for repeat xrays [id number] Bo Gil DPM [facility] [place] [address] [place] [address] 01/11/2024 16:56:59 01/12/2024 13:20:49 Postoperative care 700778321 Z48.89 X-rays reviewed with the kelsy gutierrez return to normal shoe gearrecomm end wide shoe gear no tight shoes as this will cause recurrence of deformityD oing well Follow up 1 month for repeat x-rays [id number] Bo Gil DPM [facility] [place] [address] [place] [address] 02/08/2024 16:35:44 02/08/2024 18:10:16 Postoperative care 396811964 Z48.89 X-rays reviewed with the kelsy gutierrez return to normal shoe gearrecomm end wide shoe gear no tight shoes as this will cause recurrence of deformityD oing well Follow up 1 month for repeat x-rays [id number] Bo Gil DPM [facility] [place] [address] [place] [address] 06/27/2024 14:26:25 06/30/2024 16:27:36 Diabetes mellitus 87531779 E11.9 Continue PCP recommenda tion Diabetic p eripheral neuropathy 607137374 E11.42 Patient educated on neuropathy , diabetes, diabetic diet, and daily foot exams. Patient is to check feet daily for new wounds, blisters, redness to prevent infection and ulceration s to the feet. Patient will return to clinic in 3 months for diabetic foot workup.Rx diabetic shoes and insoles- recommend daily Dystrophia unguium 84693 009 L60.3 Nails 1 through 10 were debrided with sharp mechanical debridemen t without incident. Nails were debrided and greater than 50% length and thickness where needed. [id number] Bo Gil DPM [facility] [place] [address] [place] [address] 11/29/2024 14:43:08 12/13/2024 11:22:30 Diabetes mellitus 79700176 E11.9 Continue PCP recommenda tion Diabetic p eripheral neuropathy 304972650 E11.42 Patient educated on neuropathy , diabetes, diabetic diet, and daily foot exams. Patient is to check feet daily for new wounds, blisters, redness to prevent infection and ulceration s to the feet. Patient will return to clinic in 3 months for diabetic foot workup.Rx diabetic shoes and insoles- recommend daily Dystrophia unguium 74670 009 L60.3 Nails 1 through 10 were debrided with sharp mechanical debridemen t without incident. Nails were debrided and greater than 50% length and thickness where needed. Diabetic on insulin 1707 81458 Z79.4 insulin and oral medication Health Concerns Section Related Observation LastModified by Organization Detai ls LastModified Time None Recorded Concern Status LastModified by Organization Details LastModified Time None Recorded Advance Directives Directive None Recorded Payers Encounter Date Sequence Insurance Name Policy Number Policy Elmore Covered Member ID Elmore Member ID Guarantor Name 12/14/2023 1 [facility] (MEDICARE REPLACEMENT/AD VANTAGE - PPO) [id number] Ten Preciado [id number] Ten Preciado 12/14/2023 2 [employer] [facility] ON OR AFTER 08/28/2020 (MEDICAID REPLACEMENT - HMO) Ten Preciado [id number] Ten Preciado 01/11/2024 1 [facility] (MEDICARE REPLACEMENT/AD VANTAGE - PPO) [id number] Ten Preciado [id number] Ten Preciado 01/11/2024 2 [employer] [place] ON [place] AFTER 2020 (MEDICAID REPLACEMENT - HMO) Ten Preciado [id number] Ten Preciado 02/08/2024 1 [facility] (MEDICARE REPLACEMENT/AD VANTAGE - PPO) [id number] Ten Preciado [id number] Ten Preciado 02/08/2024 2 [employer] [place] 2020 (MEDICAID REPLACEMENT - HMO) Ten Preciado [id number] Ten Preciado 06/27/2024 1 [facility] (MEDICARE REPLACEMENT/AD VANTAGE - PPO) [id number] Ten Preciado [id number] Ten Preciado 06/27/2024 2 [employer] [place] 2020 (MEDICAID REPLACEMENT - HMO) Ten Preciado [id number] Ten Preciado 11/28/2024 1 [facility] (MEDICARE REPLACEMENT/AD VANTAGE - PPO) [id number] Ten Preciado [id number] Ten Preciado 11/28/2024 2 [employer] [place] 2020 (MEDICAID REPLACEMENT - HMO) Ten Preciado [id number] Ten Preciado Notes Date Note Type Note [...] denies any other complaints. Bo Gil DPM [address] [place] [address], [address], [address], [facility] [employer] 12/14/2023 17:12:39 01/11/2024 text/html . [...] happy with the results. Bo Gil DPM [address], [employer], [place], [address], [employer] 01/12/2024 08:54:13 02/08/2024 text/html . Patient is [...] any other complaints. Bo Gil DPM [address], [employer], [place], [address], [employer] 02/08/2024 18:05:37 06/27/2024 text/html . Patient is [...] any other complaints. Bo Gil DPM [address], [employer], [place], [address], [employer] 06/27/2024 15:41:59 11/28/2024 text/html . Patient is [...] any other complaints. Bo Gil DPM [address], [employer], [place], [address], [place] [facility] 12/12/2024 09:33:57 OBGyn Episode No OBEpisode recorded.
== END 2025-01-12 10:17 | disposition home or self-care (01) ==
PROVIDERS: PCP Nurse Practitioner Family; Referring Provider Family Medicine; Visit Provider Internal Medicine
DX: E03.9 Hypothyroidism, unspecified (principal); E11.40 Type 2 diabetes mellitus with diabetic neuropathy, unspecified; E78.2 Mixed hyperlipidemia; Z79.4 Long term (current) use of insulin
CPT/HCPCS: 82530

== ENCOUNTER 2025-01-16 09:02 | Outpatient (CLI) | payer MEDICARE, MEDICAID, SELFPAY ==
--- OUTSIDE RECORDS SUMMARY | 2025-01-16 09:56 | XMS_ITS | Clinical Summary ---
Author Organization [facility] Flaco bhandari [facility] Address [address] [facility] [address] Care Team Providers Care Woven Label Designer Name Role Phone Unavailable Primary Care Provider Unavailabl e Social History Tobacco Use Types Packs/Day Years Used Date Smoking Tobacco: Never Assessed Comments Unknown Sex and Gender Information Value Date Recorded Sex Assigned at Not on file Legal Sex Female 1:13 PM CDT Gender Identity Not on file Sexual Orientation Not on file Plan of Treatment Upcoming Encounters Date Type Department Care Team ([facility] st Contact Info) Description 04/10/2025 3:00 PM CDT Office Visit [facility] Oncology and Hematology - [place] [facility] [address] [address] Artemio Luque MD [address] [facility] [address] [place] [address] Health Maintenance Due Date Last [...] (1 - 1-dose 75+ series) 2036 Insurance [facility] [id number] MEDICAID [place]
--- OUTSIDE RECORDS SUMMARY | 2025-01-16 09:56 | XMS_ITS | Clinical Summary ---
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 Gender Identity Not on file Sexual Orientation [...] Screening with HPV 1991 Mammogram Screening 2001 Pneumococcal Vaccine: 50+ Ye ars (1 of 1 - PCV) 2011 Zoster Vaccines (1 of 2) 2011 COVID-19 Vaccine ( - 2023-2 5 season) 2024 RSV Immunization or 60+ [...] Documents on File Type Date 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
--- OUTSIDE RECORDS SUMMARY | 2025-01-16 09:56 | XMS_ITS | Encounter Summary ---
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
[2025-01-21 18:39] LABS: Cortisol, Saliva 0.03 mcg/dL
[2025-01-21 18:58] LABS: Cortisol, Saliva 0.04 mcg/dL
== END 2025-01-16 09:03 | disposition home or self-care (01) ==
PROVIDERS: PCP Nurse Practitioner Family; Visit Provider Internal Medicine
DX: E78.2 Mixed hyperlipidemia (principal); E03.9 Hypothyroidism, unspecified; E11.40 Type 2 diabetes mellitus with diabetic neuropathy, unspecified; I10 Essential (primary) hypertension; M81.0 Age-related osteoporosis without current pathological fracture; E78.5 Hyperlipidemia, unspecified; Z71.3 Dietary counseling and surveillance; Z79.4 Long term (current) use of insulin
CPT/HCPCS: 82530

== ENCOUNTER 2025-04-10 15:22 | Outpatient (CLI) | payer MEDICARE, MEDICAID, SELFPAY ==
--- OUTSIDE RECORDS SUMMARY | 2025-04-10 15:26 | XMS_ITS | Clinical Summary ---
Author Organization [facility] Flaco Peck Address [address] [place] [address] Care Team Providers Care Operations Trainer Name Role Phone Unavailable Primary Care Provider Unavailabl e Allergies No known active allergies Medications atorvastatin (LIPITOR) 20 mg tablet Take 20 mg by mouth daily. 5 Active calcium as CARBONATE (CALTRATE) 1,500 mg (600 mg elemental) Tablet Take 600 mg by mouth daily. Active traZODone (DESYREL) 150 mg tablet 5 Active Mounjaro 12.5 mg/0.5 mL Pen Injector 5 Active sertraline (ZOLOFT) 100 mg tablet 5 Active metFORMIN (GLUCOPHAGE XR) 500 mg Extended Release 24 hour tablet 5 Active meloxicam (MOBIC) 7.5 mg tablet 5 Active levothyroxine 75 mcg tablet 5 Active Tresiba FlexTouch U-200 200 unit/mL (3 mL) pen syringe 5 Active glimepiride (AMARYL) 4 mg tablet 5 Active gabapentin (NEURONTIN) 300 mg capsule 5 Active Jardiance 25 mg tablet 5 Active cholecalcifero l, Vitamin D3, 125 mcg (5,000 unit) Capsule Take 5,000 Units by mouth daily. Active glucagon 1 mg/0.2 mL Auto-Injector Inject by subcutaneous injection. Active glucose 4 gram Tablet, Chewable Take 16 Grams by mouth see administration instructions. Every 15 min PRN Active hydroCHLOROthi azide 25 mg tablet Take 25 mg by mouth daily. Active MULTIVITAMIN WITH MINERALS ORAL Take 1 Tablet by mouth daily. Active venlafaxine (EFFEXOR XR) 150 mg Extended Release 24 hour capsule Take 150 mg by mouth daily. Active venlafaxine (EFFEXOR XR) 75 mg Extended Release 24 hour capsule Take 75 mg by mouth daily. Active Blood-Glucose Sensor (Dexcom G7 Sensor) Device by [facility].(Non-Drug; Combo Route) route. Active Active Problems No known active problems Encounters Date Type Department Care Team Description 04/10/2025 3:00 PM CDT Office Visit [facility] Oncology and Hematology - [place] [address] [place] [address] Artemio Luque MD Chronic anemia (Primary Dx) from Last 3 Months Family History Medical History Relation Name Comments No Known Problems Brother No Known Problems Child 1 No Known Problems Child 2 No Known Problems Child 3 Diabetes Father Heart Disease Father Lung Cancer Mother Relation Name Status Comments Brother Alive Child 1 Alive Child 2 Alive Child 3 Alive Father Mother Social History Tobacco Use Types Packs/Day Years Used Date Smoking Tobacco: Never Smokeless Tobacco: Never Tobacco Cessation:Counseling Given: Not Answered Alcohol Use Standard Drinks/Week Comments Never 0 (1 standard drink = 0.6 oz pur e alcohol) Comments Unknown Sex and Gender Information Value Date Recorded Sex Assigned at Not on file Legal Sex Female 1:13 PM CDT Gender Identity Not on file Sexual Orientation Not on file Last Filed Vital Signs Vital Sign Reading Time Taken Comments Blood Pressure 118/64 04/10/2025 2:47 PM CDT Pulse 70 04/10/2025 2:47 PM CDT Temperature 36.7 C (98 F) 04/10/2025 2:47 PM CDT Respiratory Rate 16 04/10/2025 2:47 PM CDT Oxygen Saturation 92% 04/10/2025 2:47 PM CDT Inhaled Oxygen Concentration - - Weight 110.7 kg (244 lb) 04/10/2025 2:47 PM CDT Height 160 cm (5' 3) 04/10/2025 2:47 PM CDT Body Mass Index 43.22 04/10/2025 2:47 PM CDT Plan of Treatment Upcoming Encounters Date Type Department Care Team (Late st Contact Info) Description 04/24/2025 4:30 PM CDT Telephone Check Up [facility] Oncology and Hematology - [place] [address] [facility] [address] [place] [address] Artemio Luque MD [address] [facility] [address] [place] [address] Health Maintenance Due Date Last Done Comments DTAP/TDAP/TD VACCINES (1 - Tdap) 1980 HPV/Cotest (21-29) 1982 CERVICAL CANCER SCREENING 1991 HPV/Cotest (30-65) 1991 PAP SMEAR 1991 BREAST CANCER SCREENING 2001 COLORECTAL SCREENING 2006 Colorectal Cancer Screening 2006 FIT-DNA Q 3 years 2006 FIT/FOBT Q 1 year 2006 Flex Sig/CT Colonography Q 5 years 2006 ZOSTER VACCINE (1 of 2) 2011 [place] Prev entative Visit/Annual Wellness Visit 09/28/2024 INFLUENZA VACCINE (#1) 2025 RSV VACCINE (60+ or ) (1 - 1-dose 75+ series) 2036 Insurance [place]ID [place]
--- OUTSIDE RECORDS SUMMARY | 2025-04-10 15:26 | XMS_ITS | Encounter Summary ---
Author Organization [facility] Address [address] [place] [address] Care Team Providers Care Section Gang Name Role Phone Unavailable Primary Care Provider Unavailabl e Encounter Details Date Type Department Care Team ([facility] st Contact Info) Description 04/10/2025 3:00 PM CDT Office Visit [facility] Oncology and Hematology - [place] [address] [facility] [address] [place] [address] Artemio Luque MD [address] [facility] [address] [place] [address] Chronic anemia (Primary Dx) Social History Tobacco Use Types Packs/Day Years [...] on file documented as of this encounter Last Filed Vital Signs Vital Sign Reading [...] Mass Index 43.22 04/10/2025 2:47 PM CDT documented in this encounter Plan of Treatment Upcoming Encounters Date Type Department Care Team (Late st Contact Info) Description 04/24/2025 4:30 PM CDT Telephone Check Up [facility] Oncology and Hematology - [place] [address] [facility] [address] [place] [address] Artemio Luque MD [address] [facility] [address] [place] [address] Scheduled Orders Name Type Priority Associated Diagnoses Orde r Schedule CBC WITH DIFFERENTIAL Lab Stat Chronic anemia Expected: 04/10/2025, Expires: 04/10/2026 COMPREHENSIVE METABOLIC PANEL Lab Stat Chronic anemia Expected: 04/10/2025, Expires: 04/10/2026 ERYTHROPOIETIN LEVEL Lab Routine Chronic anemia Expected: 04/10/2025, Expires: 04/10/2026 FERRITIN Lab Routine Chronic anemia Expected: 04/10/2025, Expires: 04/10/2026 IRON, TIBC, AND PERCENT SATURATION Lab Routine Chronic anemia Expected: 04/10/2025, Expires: 04/10/2026 documented as of this encounter Visit Diagnoses Diagnosis Chronic anemia- Primary Anemia, unspecified documented in this encounter
--- OUTSIDE RECORDS SUMMARY | 2025-04-10 15:26 | XMS_ITS | Patient Health Record ---
Author Organization [facility] [employer] Address [address] [facility] [address] [place] [address] Care Team Providers Care Primer Waterproofing Machine Adjuster Name Role Phone Star De Santiago Unavailable [phone] Reason For Referral No Information Medications Medication SIG (Take, Route, Frequency, Duration) Notes Start Date End Date Status hydroCHLOROthiazide 25 MG Oral 02/12/2023 Active TRESIBA FLEXTOUCH U-100 *Reorder from [employer] for eRx and Interaction Alerts* 02/12/2023 Active Sertraline HCl 100 MG Oral 02/12/2023 Active Ozempic (2 MG/DOSE) 8 MG/3ML Subcutaneous *Reorder from [employer] for eRx and Interaction Alerts* 02/12/2023 Active Venlafaxine HCl ER 150 MG Oral 02/12/2023 Active Levothyroxine Sodium 75 MCG Oral 02/12/2023 Active Jardiance 25 MG Oral 02/12/2023 Act todd HumaLOG KwikPen 100 UNIT/ML Subcutaneous 02/12/2023 Active Gabapentin 300 MG Oral 02/12/2023 A ctive Sertraline HCl 25 MG Oral 02/12/2023 Active Venlafaxine HCl ER 75 MG Oral 02/12/2023 Active Ozempic (1 MG/DOSE) 4 MG/3ML Subcutaneous *Pick strength-form from [employer] for eRX* 02/12/2023 Active Meloxicam 7.5 MG Oral 02/12/2023 Ac tive Levothyroxine Sodium 50 MCG Oral 02/12/2023 Active Alendronate Sodium 70 MG Oral 02/12/2023 Active metFORMIN HCl ER 500 MG Oral 02/12/2023 Active Tresiba FlexTouch 200 UNIT/ML Subcutaneous 02/12/2023 Active traZODone HCl 100 MG Oral 02/12/2023 Active Glimepiride 4 MG Oral 02/12/2023 Ac tive Ketoconazole 2% External 02/12/2023 Act todd traZODone HCl 50 MG Oral 02/12/2023 Active Atorvastatin Calcium 20 MG Oral 02/12/2023 Active Immunizations Vaccine Route Administration Date Status Comme nts Moderna Covid-19 Vaccine 1st dose Unknown 12/05/2020 Ad ministered Moderna Covid-19 Vaccine 1st dose Unknown 01/04/2021 Ad ministered Moderna Covid-19 Vaccine 1st dose Unknown 08/20/2021 Ad ministered Plan Of Treatment No Information Insurance Providers Payer Name Payer Address Payer Phone Subscriber Number Group Number Insured Name Patient Relationship to Insured Coverage Start Date Coverage End Date [facility] [address] [place] [phone] [id number] LEEANNE WORTHINGTON Self - patient is the insured A[employer] [place] Medicaid Replacement - [facility] [address] [place] [address] [id number] LEEANNE WORTHINGTON Self - patient is the insured Medical (General) History Surgical History Surgery Date(Month/Year) Breast surgery () Hysterectomy (05571) Tonsilectomy/adenoids Any surgical history Cataract surgery (44230) Cataract surgery (41238) 09/28/2020
--- OUTSIDE RECORDS SUMMARY | 2025-04-10 15:26 | XMS_ITS | Data Portability ---
Author Organization [place] - [email or web address] [facility], Main Office Address [address] [place] [address] Care Team Providers Care Alcohol And Drug Counselor Name Role Phone CATRACHO HARIS Primary Care Provider HARIS HAYDEN Referring Provider [phone] Assessment Encounter Date Assessment Date Assessment LastModified by Organization Details LastModified Time 12/14/2023 12/14/2023 This note is dictated and transcribed by [employer]. Grinding Machine Operator Automatic variances may occur. Despite proofreading, typographical errors may occur. Occasional wrong-word or xdmyy-m-ynic substitutions may have occurred due to the inherent limitations of voice recording. Read the chart carefully and recognize, using context, where substitutions have occurred. Not available 12/14/2023 17:10:53 02/08/2024 02/08/2024 This note is dictated and transcribed by [employer]. Grinding Machine Operator Automatic variances may occur. Despite proofreading, typographical errors may occur. Occasional wrong-word or 'ryind-a-zxvg' substitutions may have occurred due to the inherent limitations of voice recording. Read the chart carefully and recognize, using context, where substitutions have occurred. Not available 02/08/2024 18:03:06 06/27/2024 06/27/2024 This note is dictated and transcribed by [employer]. Grinding Machine Operator Automatic variances may occur. Despite proofreading, typographical errors may occur. Occasional wrong-word or 'litxu-g-rerd' substitutions may have occurred due to the inherent limitations of voice recording. Read the chart carefully and recognize, using context, where substitutions have occurred. Not available 06/27/2024 15:41:19 11/28/2024 11/28/2024 This note is dictated and transcribed by [employer]. Grinding Machine Operator Automatic variances may occur. Despite proofreading, typographical errors may occur. Occasional wrong-word or 'jjcln-n-gvow' substitutions may have occurred due to the inherent limitations of voice recording. Read the chart carefully and recognize, using context, where substitutions have occurred. [email or web address] Not available 12/12/2024 09:32:53 Plan of Treatment Reminders Order Date Submit Date Provider Last Modified By Organization Details Last Modified Time Details Appointments Establish ed Patient 15 2024 03:00P M Bo Gil DPM Not available Not available Not available Lab None recorded. Referral None recorded. Procedures None recorded. Surgeries None recorded. Imaging XR, foot, 3 or more view 2023 024 [email or web address] [facility] [place], [address], [place], [address], 02/08/2024 18:05:11 XR, foot, 3 or more view 2023 024 [email or web address] [facility] [place], [address], [place], [address], 01/12/2024 08:53:53 Medication Orders None recorded. Patient TargetsNo targets recorded. Patient InstructionsNo instructions recorded. Reason for Referral None Reported. Results Created Date Observation Date Name Description Value Unit Range Abnormal Flag Note LastModifiedBy Organization Detail LastModifiedTime 11/27/1911/27/2023 GLUCO SE (POIN T OF CARE) glucose (point of care) 114 mg/dL 74-99 high Not Available [facility] (Lab) [address] [place], [address], 11/27/2023 10:16:59 11/27/1911/27/2023 XR, foot, 2 view [facility] [address] [place] [address] Patien t Name: MARYCARMEN PRECIADO Access ion #: [id number] Sex: F : 1959 0 3 Dictat ed By: Jose Lu ms Attend ing Physic armin: BO BEJARANO Orderi ng Physic armin: SERAFatoumata ELI BO Exam Date: 2023 08:44 AM Exam [...] 2023 09:37: 04 AM Page 1 [email or web address] [facility] (Imaging) [address] [place], [address], 11/27/2023 11:49:19 01/12/20 24 XR, foot, 3 or more view No observ ation record ed. [email or web address] [facility] [place] [address], [place], [address], 01/12/2024 08:53:53 02/08/20 24 XR, foot, 3 or more view No observ ation record ed. [email or web address] [facility] [place] [address], [place], [address], 02/08/2024 18:05:11 Result Notes None recorded. Problems Name Problem SNOMED Code Status Onset Date Resolution Date Notes Provider Name and Address Organization Details Recorded Time Pain of left ankle joint 4625639330216 9103 Active 2020 Not Available [employer] 3 01:10:33 Dry skin 90731955 Active 2021 Not Available [facility] 3 01:10:34 Unable to cut own toenails 257828202 Active 2022 Not Available [facility] 3 01:10:34 Dyslipidem ia 260317010 Active 2021 Not Available [facility] 3 01:10:34 Hypothyroi dism 33167832 Active 2021 Not Available [facility] 3 01:10:34 Diabetic peripheral neuropathy 329290016 Active 2022 Not Available [facility] 3 01:10:34 Uncontroll ed type 2 diabetes mellitus 361648184 Active 2021 Not Available [facility] 3 01:10:34 Well controlled type 2 diabetes mellitus 731001040 Active 2021 Not Available [facility] 3 01:10:34 Diabetes mellitus 09611398 Active 2020 Not Available [facility] 3 01:10:34 Weight gain 3722804 Active 2021 Not Available [facility] 3 01:10:34 Essential hypertensi on 32551384 Active 2022 Izzy Meza MD [address], [place], [address] , [employer] 3 15:52:04 Dystrophia unguium 70181281 Active 2022 Bo Gil DPM [address], [address], [place], [address] , [employer] 3 12:32:42 Foot callus 231467158 Active 2022 Bo Gil DPM [address], [address], [place], [address] , [employer] 3 12:32:46 Pain in right foot 9714160272134 07 Active 2022 Bo Gil DPM [address], [address], [place], [address] , [employer] 3 11:07:38 Bone spur of right foot 3299104080030 03 Active 2022 Bo Gil DPM [address], [address], [place], [address] , [employer] 3 09:03:56 Hammer toe 531601997 Active 2023 Bo Gil DPM [address], [address], [place], [address] , [employer] 4 13:21:57 Tailor's bunion of right foot 6396768032322 109 Active 2023 Bo Gil DPM [address], [address], [place], [address] , [employer] 4 18:08:27 Postoperat todd care Active 2023 Bo Gil DPM [address], [address], [place], [address] , [employer] 4 17:11:38 Diabetic on insulin 871764686 Active 2024 Bo Gil DPM [address], [address], [place], [address] , [employer] 5 09:33:04 Problem Notes None recorded. Procedures Surgical History Date Name Laterality Status Provider Name and Address Organization Details Recorded Time 11/30/19 25 Nail Debridement completed Bo Gil DPM [address], [address], [place], [address], [employer] 12/12/2024 09:31:54 06/27/20 24 Nail Debridement completed Bo Gil DPM [address], [address], [place], [address], [employer] 06/27/2024 15:40:26 09/10/20 23 Nail Debridement completed Bo Gil DPM [address], [address], [place], [address], [employer] [facility] 09/10/2023 11:07:21 04/23/20 23 Nail Debridement completed Bo Gil DPM [address], [place], [address], [facility] [employer] [facility] 04/23/2023 12:00:12 04/23/20 23 Callus Debridement, One completed Bo Gil DPM [address], [place], [address], [facility] [employer] [facility] 04/23/2023 11:59:57 01/23/20 23 Nail Debridement completed Bo Gil DPM [address], [place], [address], [facility] [employer] [facility] 01/22/2023 12:32:18 Hysterectomy completed Not Available [facility] 11/26/2022 01:06:21 total elbow replacement completed Not Available [facility] 11/26/2022 01:06:21 Ankle Surgery completed Not Available [facility] 11/26/2022 01:06:21 Cataract Surgery completed Not Available [facility] 11/26/2022 01:06:21 Imaging Results None recorded. Procedure Notes None recorded. Medical Equipment None [...] Available [employer]iCare Pen Needle 31 gauge x 1/4 USE WITH INSULIN FOUR TIMES A DAY [...] Available Not Available Not Available Dexcom G6 Button And Buckle Maker USE DIRECTED FOR CONTINU S GLUCOSE MONITORIN G 12/13 completed Not Available Not Available Not Available Dexcom G6 Transmitter device USE DIRECTED FOR CONTINU S GLUCOSE MONITORIN G. CHANGE TRANSMITT ER [...] Not Available Not Available Vitals Date Recorded Heart rate Respiratory rate Oxygen saturation Oxygen saturation in Arterial blood by Pulse oximetry Systolic And Diastolic Provider Name and Address Organization Details Last Updated DateTime 5 77 /min 14 /min 99 % 99 % 120/66 mm[Hg] Barb Jamil Am[facility] [employer] 5 17:27:42 Date Recorded Body height Body mass index (BMI) Body weight Heart rate Respiratory rate Oxygen saturation Oxygen saturation in Arterial blood by Pulse oximetry Systolic And Diastolic Provider Name and Address Organization Details Last Updated DateTime 4 162.56 cm 39.5 kg/m2 139576. 25 g 85 /min 14 /min 98 % 98 % 98/71 mm[Hg] Barb Jamil [facility] [employer] 4 16:20:34 Date Recorded Body height Body mass index (BMI) Body weight Heart rate Respiratory rate Oxygen saturation Oxygen saturation in Arterial blood by Pulse oximetry Systolic And Diastolic Provider Name and Address Organization Details Last Updated DateTime 4 162.56 cm 39.5 kg/m2 406793. 25 g 83 /min 14 /min 98 % 98 % 102/72 mm[Hg] Barb Jamil [employer] 4 17:07:15 Date Recorded Body height Body mass index (BMI) Body weight Heart rate Respiratory rate Body temperature Oxygen saturation Oxygen saturation in Arterial blood by Pulse oximetry Systolic And Diastolic Provider Name and Address Organization Details Last Updated DateTime 4 162.56 cm 39.5 kg/m2 285636. 25 g 83 /min 14 /min 98 [degF] 98 % 98 % 110/72 mm[Hg] Yana Hernandez [employer] 4 17:07:09 Date Recorded Body height Body mass index (BMI) Body weight Heart rate Respiratory rate Oxygen saturation Oxygen saturation in Arterial blood by Pulse oximetry Systolic And Diastolic Provider Name and Address Organization Details Last Updated DateTime 4 162.56 cm 39.5 kg/m2 134041. 25 g 85 /min 14 /min 98 % 98 % 109/55 mm[Hg] Barb Jamil [facility] 4 15:10:13 Social History Question Answer Notes LastModified by Organizat ion Details LastModified Time Tobacco Smoking Status Former Smoker Not Available [facility] 11/26/2022 01:02:39 What Is Your Level Of Caffeine Consumption? Heavy [id number] Information not available 11/26/2022 In The 14 Days Before Symptom Onset, Have You Had Close Contact With A Laboratory-confirm ed COVID-19 While That Case Was Ill? No [id number] 026 Information not available 11/26/2022 In The 14 Days Before Symptom Onset, Have You Had Close Contact With A Person Who Is Under Investigation For COVID-19 While That Person Was Ill? No MIGRATION.[id number] 026 Information not available 11/26/2022 What Type Of Diet Are You Following? REGULAR MIGRATION.[id number] 026 Information not available 11/26/2022 Which Illicit Or Recreational Drugs Have You Used? None MIGRATION.[id number] 026 Information not available 11/26/2022 What Is Your Relationship Status? MIGRATION.[id number] 026 Information not available 11/26/2022 At What Age Did You Start Smoking Tobacco? 16 MIGRATION.[id number] 026 Information not available 11/26/2022 Have You Recently Traveled Abroad? No MIGRATION.[id number] 026 Information not available 11/26/2022 Do You Have Any Dietary Restrictions? No MIGRATION.[id number] 026 Information not available 11/26/2022 Sex: Female Functional Status Question Answer Note LastModified by Organizat ion Details LastModified Time Do you use any illicit or recreational drugs? No MIGRATION.351684 2021 Information not available 11/26/2022 Do you or have you ever used any other forms of tobacco or nicotine? Yes [id number].[id number] 3650 Information not available 11/26/2022 What is your level of alcohol consumption? None MIGRATION.250864 6003 Information not available 11/26/2022 Do you or have you ever used e-cigarettes or vape? Current user of electronic cigarettes vape MIGRATION.341197 9058 Information not available 11/26/2022 Mental Status None recorded. Family History Relationship Description Onset Age of this Age Resolved Age Notes LastModified by Organization Details LastModified Time Mother Malignant neoplasm of lung [id number] [id number] Not available 11/26/2022 01:06:23 Father Diabetes mellitus MIGRATION.947 [id number] Not available 11/26/2022 01:06:23 Father Myocardial infarction MIGRATION.430 [id number] Not available 11/26/2022 01:06:23 Father Hypertensive disorder MIGRATION.178 [id number] Not available 11/26/2022 01:06:23 Medical History Condition Response EYE PROBLEMS Y DIABETES, TYPE Y HEADACHES/MIGRAINES Y ASTHMA Y HIGH CHOLESTEROL / HYPERLIPIDEMIA Y Gynecological HistoryNo gynecological history recorded. Obstetrics History GPAL:G 0 P 0 0 0 0 Past Encounters Encounter ID Performer Location Encounter Start Date Encounter Closed Date Diagnosis/Indication Diagnosis SNOMED-CT Code Diagnosis ICD10 Code Diagnosis Note [id number] Izzy Meza MD [facility] [place] [address] [place] [address] 12/04/2020 00:00:00 12/16/2020 19:42:25 [id number] [facility] [place] [address] [place] [address] 12/20/2020 00:00:00 12/20/2020 14:09:13 [id number] [facility] [place] [address] [place] [address] 04/04/2021 00:00:00 04/11/2021 08:42:54 [id number] [facility] [place] [address] [place] [address] 07/22/2021 00:00:00 07/22/2021 13:40:15 [id number] Izzy Meza MD [facility] [place] [address] [place] [address] 07/23/2021 00:00:00 07/23/2021 10:46:33 [id number] Izzy Meza MD [facility] [place] [address] [place] [address] 10/25/2021 00:00:00 10/25/2021 10:59:52 [id number] [facility] [place] [address] [place] [address] 12/26/2021 00:00:00 12/26/2021 12:58:03 [id number] Izzy Meza MD [facility] [place] [address] [place] [address] 03/03/2022 00:00:00 03/03/2022 15:44:51 [id number] [facility] [place] [address] [place] [address] 03/27/2022 00:00:00 03/27/2022 11:15:10 [id number] [facility] [place] [address] [place] [address] 06/26/2022 00:00:00 06/26/2022 13:20:44 [id number] [facility] [place] [address] [place] [address] 07/21/2022 00:00:00 07/21/2022 12:46:21 [id number] Bo Gil DPM [facility] [place] [address] [place] [address] 10/23/2022 00:00:00 10/23/2022 09:59:39 [id number] Izzy Meza MD [facility] [place] [address] [place] [address] 12/11/2022 11:48:12 12/11/2022 12:58:51 Well controlled type 2 diabetes mellitus 356325695 E11.9 a1c 6.4% down from 7.2%- continue [...] risk when taken with glimepirid e. Hypothyroidism 95798410 E03.9 FT4 in range- continue on unithroid [...] minerals and reduce inflammati on. Diabetes mellitus 737024 09 E11.9 Please note the above- well controlled . Dyslipidemia 277863940 E 78.5 Continue statin therapy. Spent up to 25 minutes preparing to see the patient (eg, review of tests), obtaining and/or reviewing separately obtained history, performing a medically appropriat e examinatio n and evaluation , counseling and educating the patient, ordering medication s, tests, along with documentin g clinical informatio n in the electronic health record, sohamen annabelle interpreti ng results and communicat ing results to the patient. RTC in 6 months. Patient was provided a handwritte n lab order which contains our fax number. If she chooses to go outside of the [facility] system to obtain labwork she was [...] in her case. She voiced understand ing. [id number] Bo Gil DPM [facility] [place] [address] [place] [address] 01/22/2023 11:49:38 01/22/2023 12:35:25 Diabetic peripheral neuropathy 290396922 E11.42 Patient educated on neuropathy , diabetes, diabetic diet, and daily foot exams. Patient is to check feet daily for new wounds, blisters, redness to prevent infection and ulceration s to the feet. Patient will return to clinic in 3 months for diabetic foot workup.Con tinue diabetic shoespatie nt shown where to obtain and diabetic inserts over-the-c ounter Dystrophia unguium 73194 009 L60.3 Nails 1 through 10 were debrided with sharp mechanical debridemen t without incident. Nails were debrided and greater than 50% length and thickness where needed. Foot callus 014786073 L8 4 Sub 5th metatarsal [facility] ed without incidentEd ucated on use of a pumice stoneFollo w-up in 3 months continue diabetic shoes and obtain diabetic insoles [id number] Bo Gil DPM [facility] [place] [address] [place] [address] 04/23/2023 11:24:24 04/23/2023 14:08:29 Dystrophia unguium 60680091 L60.3 Nails 1 through 10 were debrided with sharp mechanical debridemen t without incident. Nails were debrided and greater than 50% length and thickness where needed. Diabetic p eripheral neuropathy 700123978 E11.42 Patient educated on neuropathy , diabetes, diabetic diet, and daily foot exams. Patient is to check feet daily for new wounds, blisters, redness to prevent infection and ulceration s to the feet. Patient will return to clinic in 3 months for diabetic foot workup.Con tinue diabetic shoespatie nt shown where to obtain and diabetic inserts over-the-c ounter Foot callus 422148793 L8 4 Sub 5th metatarsal head [facility] ed without incidentEd ucated on use of a pumice stoneFollo w-up in 3 months continue diabetic shoes and obtain diabetic insoles [id number] Bo Gil DPM [facility] [place] [address] [place] [address] 09/10/2023 10:50:16 09/14/2023 11:44:10 Pain in right foot 4634521590 98277 M79.671 x-rays reviewed with the patient Bone spur of right foot 5494080465 34364 M25.774 lateral 5th metatarsal headoption s reviewed with the patientPat ient will conservati vely offload the area and if it does not improve may require surgical excision of spurrecomm end wide shoe gear Dystrophia unguium 84320 009 L60.3 Nails 1 through 10 were debrided with sharp mechanical debridemen t without incident. Nails were debrided and greater than 50% length and thickness where needed. [id number] Bo Gil DPM [facility] [place] [address] [place] [address] 10/22/2023 12:34:57 10/28/2023 09:25:45 Bone spur of right foot 9426553585 76304 M25.774 lateral 5th metatarsal headoption s reviewed [...] full understand ing.Once cleared will schedule surgeryrec [place] wide shoe gearfollow -up after surgery Pain in right foot 01183 28678 10515 M79.671 x-rays reviewed with the patient Hammer toe 171192029 M20 .41 adductovar us rotation 5th toeplan derotation al arthroplas ty right 5th toeAll risks and benefits reviewed with the patient to complete full understand ing patient elects to continue despite possible risks. No guarantees were given or implied. Diabetic p eripheral neuropathy 688182036 E11.42 Patient educated on neuropathy , diabetes, diabetic diet, and daily foot exams. Patient is to check feet daily for new wounds, blisters, redness to prevent infection and ulceration s to the feet. Patient will return to clinic in 3 months for diabetic foot workup.Rx diabetic shoes and insoles Tailor's b union of right foot 6116987210 215218 M21.050 [id number] Bo Gil DPM [facility] [place] [address] [place] [address] 11/30/2023 14:48:35 11/30/2023 16:05:47 Postoperative care 483873165 Z48.89 Status post 3 days Doing well Dressing change Continue postop shoe Follow up in 1 week for dressing change [id number] Bo Gil DPM [facility] [place] [address] [place] [address] 12/14/2023 16:13:12 12/14/2023 17:27:14 Postoperative care 984166100 Z48.89 Status post approx 2 weekssutur es removedDobenedict gary wellDressbenedict gary changeCont inue postop shoeFollow up 4 week for repeat xrays [id number] Bo Gil DPM [facility] [place] [address] [place] [address] 01/11/2024 16:56:59 01/12/2024 13:20:49 Postoperative care 829807035 Z48.89 X-rays reviewed with the patientinc jaimee healedmay return to normal shoe gearrecomm end wide shoe gear no tight shoes as this will cause recurrence of deformityD oing well Follow up 1 month for repeat x-rays [id number] Bo Gil DPM [facility] [place] [address] [place] [address] 02/08/2024 16:35:44 02/08/2024 18:10:16 Postoperative care 932603589 Z48.89 X-rays reviewed with the patientinc jaimee healedmay return to normal shoe gearrecomm end wide shoe gear no tight shoes as this will cause recurrence of deformityD oing well Follow up 1 month for repeat x-rays [id number] Bo Gil DPM [facility] [place] [address] [place] [address] 06/27/2024 14:26:25 06/30/2024 16:27:36 Diabetes mellitus 76637135 E11.9 Continue PCP recommenda tion Diabetic p eripheral neuropathy 432813260 E11.42 Patient educated on neuropathy , diabetes, diabetic diet, and daily foot exams. Patient is to check feet daily for new wounds, blisters, redness to prevent infection and ulceration s to the feet. Patient will return to clinic in 3 months for diabetic foot workup.Rx diabetic shoes and insoles- recommend daily Dystrophia unguium 37081 009 L60.3 Nails 1 through 10 were debrided with sharp mechanical debridemen t without incident. Nails were debrided and greater than 50% length and thickness where needed. [id number] Bo Gil DPM [facility] [place] [address] [place] [address] 11/29/2024 14:43:08 12/13/2024 11:22:30 Diabetes mellitus 80687049 E11.9 Continue PCP recommenda tion Diabetic p eripheral neuropathy 485019468 E11.42 Patient educated on neuropathy , diabetes, diabetic diet, and daily foot exams. Patient is to check feet daily for new wounds, blisters, redness to prevent infection and ulceration s to the feet. Patient will return to clinic in 3 months for diabetic foot workup.Rx diabetic shoes and insoles- recommend daily Dystrophia unguium 81166 009 L60.3 Nails 1 through 10 were debrided with sharp mechanical debridemen t without incident. Nails were debrided and greater than 50% length and thickness where needed. Diabetic on insulin 1707 69474 Z79.4 insulin and oral medication Health Concerns Section Related Observation LastModified by Organization Detai ls LastModified Time None Recorded Concern Status LastModified by Organization Details LastModified Time None Recorded Advance Directives Directive None Recorded Payers Insurance Date Sequence Insurance Name Policy Number Policy Elmore Covered Member ID Elmore Member ID Guarantor Name 01/20/2025 2 [employer] BETTER [facility] ON OR AFTER 08/28/2020 (MEDICAID REPLACEMENT - HMO) Ten Preciado [id number] Ten Preciado 01/20/2025 1 [facility] (MEDICARE REPLACEMENT/AD VANTAGE - PPO) [id number] Ten Preciado [id number] Ten Preciado 06/27/2024 2 [employer] [facility] (MEDICAID HMO) Ten Preciado [id number] Ten Preciado Notes Date Note Type Note [...] denies any other complaints. Bo Gil DPM [address] [place] [address], [address], [address], [employer] 12/14/2023 17:12:39 01/11/2024 text/html . Patient is [...] the results. Bo Gil DPM [address], [place], [address], [employer] 01/12/2024 08:54:13 02/08/2024 text/html . Patient is [...] any other complaints. Bo Gil DPM [address], [place], [address], [employer] 02/08/2024 18:05:37 06/27/2024 text/html . Patient is [...] other complaints. Bo Gil DPM [address], [place], [address], [employer] 06/27/2024 15:41:59 11/28/2024 text/html . Patient is [...] any other complaints. Bo Gil DPM [address] [address], [place], [address], [place] [facility] [place] [employer] 12/12/2024 09:33:57 OBGyn Episode No OBEpisode recorded.
--- OUTSIDE RECORDS SUMMARY | 2025-04-10 15:27 | XMS_ITS | Clinical Summary ---
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
--- OUTSIDE RECORDS SUMMARY | 2025-04-10 15:27 | XMS_ITS | Encounter Summary ---
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
[2025-04-10 15:37] LABS: Hematocrit 46.3 % (37.0-47.0); Hemoglobin 15.1 g/dL (12.0-15.0); Immature Granulocyte Percent A 0.4 % (0-0.5); Lymphocytes Absolute Auto 1.46 K/mm3 (0.9-3.2); Mean Corpuscular HGB Conc 32.6 g/dl (32-36); Mean Corpuscular Hemoglobin 31.7 pg (26-34); Mean Corpuscular Volume 97.3 fl (80-100); Nucleated Red Blood Cells Absolute Auto 0.000 K/mm3 (0.0-0.012); Nucleated Red Blood Cells Perc 0.0 % (0.0-0.2); Platelet Count Result 212 k/mm3 (150-375); Red Blood Count 4.76 M/mm3 (4.2-5.4); White Blood Count 8.2 K/mm3 (4.5-10.0)
[2025-04-10 16:28] LABS: Alanine Aminotransferase 26 U/L (6-35); Albumin Level 4.7 g/dL (3.5-5.1); Alkaline Phosphatase 64 U/L (38-126); Anion Gap 11 mmol/L (4-12); Aspartate Amino Transferase 71 U/L (14-36); Bilirubin,Total 0.4 mg/dL (0.2-1.3); Blood Urea Nitrogen 20 mg/dL (7-17); Calcium 9.5 mg/dL (8.4-10.2); Carbon Dioxide 25 mmol/L (22-30); Chloride 105 mmol/L (98-107); Estimated Glomerular Filt Rate > 60; Glucose 100 mg/dL (65-110); Iron 70 ug/dL (37-170); Potassium 4.6 mmol/L (3.4-5.0); Sodium 141 mmol/L (137-145); Total Protein 7.7 g/dL (6.3-8.2)
[2025-04-10 16:37] LABS: Percent Iron Saturation 17 % (20-50)
[2025-04-10 17:09] LABS: Ferritin 49.20 ng/mL (11.1-264)
== END 2025-04-10 15:23 | disposition home or self-care (01) ==
LOC: ANHLAB 15:23
PROVIDERS: PCP Family Medicine; Visit Provider Internal Medicine Hematology & Oncology
DX: D64.9 Anemia, unspecified (principal)
CPT/HCPCS: 36415; 80053; 82668; 82728; 83540; 83550; 85025

== ENCOUNTER 2025-09-19 13:12 | Outpatient (CLI) | payer MEDICARE, MEDICAID, SELFPAY ==
--- NOTE | ~2025-09-19 | CT_ITS ---
EXAMINATION:CT lung screening DATE: 09/19/2025 13:32 INDICATION: Personal history of nicotine dependence. TECHNIQUE: Computed tomography (CT) of the chest was performed without intravenous contrast. Automated exposure control and iterative reconstruction technique were employed. The dose-length product (DLP) was 244.62 mGy-cm. COMPARISON: Chest CT 09/06/2024, CT abdomen 07/09/2022 FINDINGS: Calcified right lung nodules and calcified right hilar and mediastinal lymph nodes are consistent with old granulomatous disease. There is mild atelectasis bilaterally. No pleural effusion. The heart size is normal. There are coronary artery calcifications. No pericardial effusion. Partially visualized is a 13.3 cm cyst in the liver. There is a 1.7 cm mass in left adrenal gland without change, likely an adenoma. There is severe thoracic spondylosis. There are bridging endplate osteophytes at multiple levels in the spine, consistent with diffuse idiopathic skeletal hyperostosis (DISH). IMPRESSION: 1. Lung-RADS category 1: Negative. Continue annual screening with noncontrast low-dose chest CT in 12 months. Reviewed, dictated and finalized at location [facility] IMPRESSION: 1. Lung-RADS category 1: Negative. Continue annual screening with noncontrast l ow-dose chest CT in 12 months.
--- OUTSIDE RECORDS SUMMARY | 2025-09-19 13:16 | XMS_ITS | Clinical Summary ---
Author Organization [facility] Flaco Peck Address [address] [facility] [address] Care Team Providers Care Branch Service Associate Name Role Phone Unavailable Primary Care Provider [...] Blood-Glucose Sensor (Dexcom G7 Sensor) Device by [facility]Non-Drug; Combo Route) route. Active Active Problems No known active problems Encounters Date Type Department Care Team Description 08/15/2025 External Device Data STL ABSTRACTION Provider, Abstract 07/26/2025 External Device Data STL ABSTRACTION Provider, Abstract 07/26/2025 External Device Data STL ABSTRACTION Provider, Abstract 07/25/2025 External Device Data STL ABSTRACTION Provider, Abstract 07/25/2025 External Device Data STL ABSTRACTION Provider, Abstract 07/18/2025 External Device Data STL ABSTRACTION Provider, Abstract from Last 3 Months Family History Medical [...] Care Team (Late st Contact Info) Description 12/13/2025 3:45 PM CDT Office Visit [facility] Oncology and Hematology - [place] [address] [facility] [address] [place] [address] Artemio Luque MD [address] [facility] [address] [place] [address] Health Maintenance Due Date Last Done Comments DIABETES ANNUAL FOOT EXAM 1979 DIABETES ANNUAL RETINAL EXAM 1979 DIABETES HBA1C Q 6 MONTHS 1979 DIABETES MICROALBUMIN ANNUAL SCREEN 1979 LDL CHOLESTEROL ANNUAL 1979 DTAP/TDAP/TD VACCINES (1 - Tdap) 1980 HPV/Cotest (21-29) 1982 CERVICAL CANCER SCREENING 1991 HPV/Cotest (30-65) 1991 PAP SMEAR 1991 BREAST CANCER SCREENING 2001 COLORECTAL SCREENING 2006 Colorectal Cancer Screening 2006 FIT-DNA Q 3 years 2006 FIT/FOBT Q 1 year 2006 Flex Sig/CT Colonography Q 5 years 2006 RSV VACCINE (60+ or ) (1 - Risk 50-74 years 1-dose series) 2011 ZOSTER VACCINE (1 of 2) 2011 INFLUENZA VACCINE (#1) 2025 Insurance [place] Member Subscriber Plan / Payer (Ef fective 2024-Present) Name:Ten Preciado Relation to Subscriber:Self Name:Ten Preciado Payer ID:Not on file Group ID:Not on file Type:Medicaid Address: [address] [facility]PO [facility]
--- OUTSIDE RECORDS SUMMARY | 2025-09-19 13:16 | XMS_ITS | Patient Health Record ---
Author Organization [facility] As Naubo Address [address] [facility] [address] [place] [address] Care Team Providers Care Youth Court Judge Name Role Phone Star De Santiago Unavailable [phone] Reason For Referral No Information Medications Medication SIG (Take, Route, Frequency, Duration) Notes Start Date End Date Status hydroCHLOROthiazide 25 MG Tablet Oral 02/12/2023 Active TRESIBA FLEXTOUCH U-100 *Reorder from [employer] for eRx and Interaction Alerts* 02/12/2023 Active Sertraline HCl 100 MG Tablet Oral 02/12/2023 Active Ozempic (2 MG/DOSE) 8 MG/3ML Solution Pen-injector Subcutaneous *Reorder from [employer] for eRx and Interaction Alerts* 02/12/2023 Active Venlafaxine HCl ER 150 MG Capsule Extended Release 24 Hour Oral 02/12/2023 Active Levothyroxine Sodium 75 MCG Tablet Oral 02/12/2023 Active Jardiance 25 MG Tablet Oral 02/12/2023 Active HumaLOG KwikPen 100 UNIT/ML Solution Pen-injector Subcutaneous 02/12/2023 Active Gabapentin 300 MG Capsule Oral 02/12/2023 Active Sertraline HCl 25 MG Tablet Oral 02/12/2023 Active Venlafaxine HCl ER 75 MG Capsule Extended Release 24 Hour Oral 02/12/2023 Active Ozempic (1 MG/DOSE) 4 MG/3ML Solution Pen-injector Subcutaneous *Pick strength-form from [employer] for eRX* 02/12/2023 Active Meloxicam 7.5 MG Tablet Oral 02/12/2023 Active Levothyroxine Sodium 50 MCG Tablet Oral 02/12/2023 Active Alendronate Sodium 70 MG Tablet Oral 02/12/2023 Active metFORMIN HCl ER 500 MG Tablet Extended Release 24 Hour Oral 02/12/2023 Active Tresiba FlexTouch 200 UNIT/ML Solution Pen-injector Subcutaneous 02/12/2023 Active traZODone HCl 100 MG Tablet Oral 02/12/2023 Active Glimepiride 4 MG Tablet Oral 02/12/2023 Active Ketoconazole 2% Cream External 02/12/2023 Active traZODone HCl 50 MG Tablet Oral 02/12/2023 Active Atorvastatin Calcium 20 MG Tablet Oral 02/12/2023 Active Immunizations Vaccine Route Administration Date Status Comme nts Moderna Covid-19 Vaccine 1st dose Unknown 12/05/2020 Ad ministered Moderna Covid-19 Vaccine 1st dose Unknown 01/04/2021 Ad ministered Moderna Covid-19 Vaccine 1st dose Unknown 08/20/2021 Ad ministered Social History Social History Additional Details Category Social Info Options Details Migrated Social History Migrated Social History Alcohol Intake: Occasional 02/06/2022,Tobacco Years: Former smoker 10/15/2021,Smoking Status: 45 02/12/2023 Plan Of Treatment No Information Insurance Providers Payer Name Payer Address Payer Phone Subscriber Number Group Number Insured Name Patient Relationship to Insured Coverage Start Date Coverage End Date [facility] [address] [place] [address] [id number] LEEANNE WORTHINGTON Self - patient is the insured A[employer] [place] Medicaid Replacement - [facility] [address] [place] [address] [id number] LEEANNE WORTHINGTON Self - patient is the insured Medical (General) History Surgical History Surgery Date(Month/Year) Breast surgery () Hysterectomy (11470) Tonsilectomy/adenoids Any surgical history Cataract surgery (30866) Cataract surgery (68878) 09/28/2020
--- OUTSIDE RECORDS SUMMARY | 2025-09-19 13:18 | XMS_ITS | Encounter Summary ---
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
--- OUTSIDE RECORDS SUMMARY | 2025-09-19 13:18 | XMS_ITS | Clinical Summary ---
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 Gender Identity Not on file Sexual [...] of 2) 2011 COVID-19 Vaccine ( - 2024-2 6 season) 2025 Influenza Adult (#1) 2025 RSV Immunization or 60+ Years (1 - 1-dose 75+ series) 2036 Hepatitis A Vaccines Aged Out No long er eligible based on patient's age to complete this topic Meningococcal B Vaccine Aged Out No l onger eligible based on patient's age to complete this topic Meningococcal Vaccine Aged Out No rani fernanda eligible based on patient's age to complete this topic RSV Immunizations Under 20 Months Aged Out No longer eligible based on patient's age to complete this topic Insurance MEDICARE MEDICAID Advance Directives Documents on File Type Date Recorded Patient Carry Out Clerk Expl anation Legal Documents 07/27/2012 12:00 AM RETIR EMENT OF RECORD Legal Documents 07/27/2012 12:00 AM RETIR EMENT OF RECORD Care Teams Drawing Box Tender Relationship Specialty Start Date End Date Keagan Richards MD [address] [place] [address] PCP - General FAMILY PRACTICE 06/14/19
== END 2025-09-19 13:13 | disposition home or self-care (01) ==
LOC: ANHIMG 13:13
PROVIDERS: PCP Family Medicine; Visit Provider Internal Medicine Critical Care Medicine
DX: Z12.2 Encounter for screening for malignant neoplasm of respiratory organs (principal); Z87.891 Personal history of nicotine dependence
CPT/HCPCS: 71271